=== PATIENT | female | born 1955 | race Caucasian/White ===

== ENCOUNTER 2018-08-22 12:52 | Day surgery (SDC) | payer OTHER ==
[2018-08-19 12:51] VITALS: BMI 29.2
[~2018-08-22 12:52] MED LIST: LACTATED RINGERS 1,000 ML IV SCH
[2018-08-22] MEDS ORDERED: LIDOCAINE 1% 20 ML VIAL (10MG/ML) FOR IV START INTRADERMA ONE (13:00)
[2018-08-22 13:13] VITALS: RESP 16; TEMP 97.1
[2018-08-22] MEDS ORDERED: PROPOFOL 10 MG/ML 20 ML VIAL IV ONE (14:48)
[2018-08-22] MEDS ORDERED: MIDAZOLAM 2 MG/2 ML VIAL ONE (14:48)
[2018-08-22] MEDS ORDERED: LIDOCAINE 1% INJ 10MG/ML (20 ML MDV) ONE (14:48)
[2018-08-22] MEDS ORDERED: fentaNYL (PF) 50 MCG/ML 2 ML AMP ONE (14:48)
[2018-08-22 15:39] VITALS: PULSE 58
--- NOTE | 2018-08-22 15:55 | P.PCN ---
Date of Procedure: 08/22/18 Procedure(s) Performed: Procedures: 1. Esophagogastroscopy and biopsy. 2. Colonoscopy and biopsy. Preoperative diagnosis: Chronic reflux symptoms and intermittent diarrhea of recent onset. Postoperative diagnosis: 1. 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 2. Multiple biopsies obtained from the antrum and esophagus. 3. Significant left-sided diverticulosis with no evidence of acute diverticulitis or strictures or colitis. 4. Biopsies obtained from the right colon to rule out microscopic colitis. Preparation: HalfLytely prep. Sedation: Was provided by anesthesia. Brief clinical history: The patient is a 63-year-old female who is scheduled for this evaluation for the above reasons. She has no dysphagia or other alarm symptoms. She has been having intermittent diarrhea for the last 3 or 4 months with occasional bleeding attributed to the frequency of her diarrhea. The patient had a colonoscopy several years back. No recent upper endoscopy either. Procedure: With the patient on her left lateral decubitus position and after informed consent and adequate sedation, I passed the Olympus-GIF H190 video upper endoscope through the cricopharyngeus down the esophagus. GE junction was around 40 cm from the incisors and there was no definite hiatal hernia. The esophagus did not show any evidence of esophagitis or complicated reflux disease. The endoscope was then passed into the stomach which was insufflated with air and inspected in detail including the retroflex view in the cardia. There was mottling and erythema in the antrum and there was deformity in the antrum and the pyloric channel had some degree of stenosis that would not allow the endoscope to go through. Since the stenosis was not high-grade no attempt was made to dilate the pyloric channel at this time. I obtained multiple biopsies from the antrum in addition to biopsies from the esophagus before the endoscope was withdrawn then I proceeded with the colonoscopy. Perianal area did not show any fissures or fistulas. There were no masses felt on digital rectal examination. The Olympus CFQ 160L video colonoscope was then inserted in the rectum in the usual fashion and advanced all the way to the right colon and cecum. There was significant diverticular disease on the left side but there was no evidence of acute diverticulitis or strictures. The mucosa appeared healthy and there was no evidence of infection or inflammation to account for her symptoms. No polyps or tumors were seen. I obtained biopsies from the right colon before the endoscope was withdrawn. The patient tolerated the procedure well. Plan: The patient was reassured. Will await biopsy results. Discussed dietary measures. Further plans will be made based on her course and biopsy results. Certainly, consideration should be given for dilation of the pyloric channel at any time in the future if she should have symptoms to suggest partial gastric outlet obstruction. She will follow-up with you as planned and I will be happy to see in follow-up as needed.
[2018-08-22 16:00] VITALS: BP 127/70
== END 2018-08-22 16:28 | disposition home or self-care (01) ==
LOC: ORWHC2ENDO 12:52
DX: K21.0 Gastro-esophageal reflux disease with esophagitis (principal); K29.50 Unspecified chronic gastritis without bleeding; K31.1 Adult hypertrophic pyloric stenosis; K57.30 Diverticulosis of large intestine without perforation or abscess without bleeding; J45.909 Unspecified asthma, uncomplicated; I10 Essential (primary) hypertension; E78.5 Hyperlipidemia, unspecified; F32.9 Major depressive disorder, single episode, unspecified; Z79.899 Other long term (current) drug therapy
CPT/HCPCS: 88305; 45380; 43239; J2250; J2001; J3010; J2704

== ENCOUNTER 2019-07-18 08:20 | Inpatient (IN) | payer OTHER ==
[2019-07-18] MEDS ORDERED: KETOROLAC 30 MG/ML 1 ML VIAL IVP STA (08:58)
[2019-07-18] MEDS ORDERED: SODIUM CHLORIDE 0.9% 1,000 ML IV STA (08:58)
[2019-07-18] MEDS ORDERED: ONDANSETRON 4 MG/2 ML VIAL IVP STA (08:58)
--- NOTE | 2019-07-18 09:02 | ED ---
General Adult HPI - General Chief complaint: Abdominal Pain Stated complaint: lower abdominal pain Time Seen by Provider: 07/18/19 08:45 Source: patient, RN notes reviewed Mode of arrival: ambulatory Limitations: no limitations - History of Present Illness Initial comments: 64-year-old female with a past medical history of asthma, GERD, hyperlipidemia, hypertension, diverticulitis presents for left lower quadrant pain 2 days. States it is a sharp pain in nature. Denies alleviating or aggravating factors. Does admit to associated nausea without vomiting. States she had diarrhea 3 days ago but that has since resolved. States that 2 days ago she had chills but did not check her temperature so is not sure if she had a fever. Denies any dysuria or hematuria.Patient has no other complaints at this time including shortness of breath, chest pain, vomiting, headache, or visual changes. - Related Data Home Medications Medication Instructions Recorded Confirmed [id number] 2 each PO Q6HR PRN 08/19/18 08/22/18 [Excedrin] Atorvastatin [Lipitor] 10 mg PO DAILY 08/19/18 08/22/18 Escitalopram [Lexapro] 20 mg PO DAILY 08/19/18 08/22/18 Lisinopril 40 mg PO DAILY 08/19/18 08/22/18 Meclizine [Antivert] 25 mg PO BID PRN 08/19/18 08/22/18 Montelukast Sodium [Singulair] 10 mg PO HS 08/19/18 08/22/18 Omeprazole 40 mg PO DAILY 08/19/18 08/22/18 Ondansetron [Zofran] 4 mg PO Q8HR PRN 08/19/18 08/22/18 amLODIPine [Norvasc] 10 mg PO DAILY 08/19/18 08/22/18 traZODone HCL 100 mg PO HS 08/19/18 08/22/18 Allergies Allergy/AdvReac Type Severity Reaction Status Date / Time No Known Allergies Allergy Verified 07/18/19 08:40 Review of Systems ROS Statement: Those systems with pertinent positive or pertinent negative responses have been documented in the HPI. ROS Other: All systems not noted in ROS Statement are negative. Past Medical History Past Medical History: Asthma, GERD/Reflux, Hyperlipidemia, Hypertension Additional Past Medical History / Comment(s): recent blood in stool, diarrhea, recent issues w/vertigo, kidney stones History of Any Multi-Drug Resistant Organisms: None Reported Past Surgical History: Section Past Anesthesia/Blood Transfusion Reactions: No Reported Reaction, Motion Sickness Past Psychological History: No Psychological Hx Reported Smoking Status: Former smoker Past Alcohol Use History: Occasional Past Drug Use History: None Reported - Past Family History Father Family Medical History: Cancer Additional Family Medical History / Comment(s): lung General Exam Limitations: no limitations General appearance: alert, in no apparent distress Head exam: Present: atraumatic, normocephalic, normal inspection Eye exam: Present: normal appearance, PERRL, EOMI. Absent: scleral icterus, conjunctival injection, periorbital swelling ENT exam: Present: normal exam, mucous membranes moist Neck exam: Present: normal inspection, full ROM. Absent: tenderness, meningismus, lymphadenopathy Respiratory exam: Present: normal lung sounds bilaterally. Absent: respiratory distress, wheezes, rales, rhonchi, stridor Cardiovascular Exam: Present: regular rate, normal rhythm, normal heart sounds. Absent: systolic murmur, diastolic murmur, rubs, gallop, clicks GI/Abdominal exam: Present: soft, tenderness (Tender in the left lower quadrant with mild guarding. When palpating the right lower quadrant patient has referred pain to the left lower quadrant. No rebound tenderness.), normal bowel sounds. Absent: distended, guarding, rebound, rigid Neurological exam: Present: alert Course Vital Signs 07/18/19 07/18/19 08:40 11:21 Temperature 97.8 F Pulse Rate 78 67 Respiratory 18 19 Rate Blood Pressure 120/78 119/66 O2 Sat by Pulse 95 98 Oximetry Medical Decision Making - Medical Decision Making 64-year-old female with a past medical history of asthma, GERD, hyperlipidemia, hypertension, diverticulitis, kidney stones presents for left lower quadrant pain 2 days. It is sharp pain in nature. Denies alleviating or aggravating factors. Does admit to associated nausea without vomiting. On exam patient does have left lower quadrant tenderness. States that right palpation causes left lower quadrant pain. No rebound tenderness. Vital signs are unremarkable. Patient is afebrile with a pulse rate of 78. CBC shows mild cytosis of 14.3. CMP is unremarkable. CT abdomen and pelvis with contrast shows generalized clonic reticulosis with evidence of acute diverticulitis at the junction of the descending and sigmoid colon. Recommended direct visualization after successful treatment to exclude neoplasm. There is also a 2.7 cm fluid locule that is likely representing left ovarian cyst rather than diverticulitis combination. Patient is also found to have a 7 mm distal ureter stone with moderate to severe hydronephrosis which is contributing to pain. 9 mm splenic artery aneurysm is also noted. Patient was given Toradol and morphine and is still in significant pain. Discussed inpatient versus outpatient admission with patient and at this time patient does not feel comfortable going home at this abdominal pain. Patient will be admitted for intractable abdominal pain and IV antibiotics. - Lab Data Result diagrams: 07/18/19 09:02 07/18/19 09:02 Lab Results 07/18/19 07/18/19 07/18/19 Range/Units 09:02 09:02 09:02 WBC 14.3 H (3.8-10.6) k/uL RBC 4.45 (3.80-5.40) m/uL Hgb 13.5 (11.4-16.0) gm/dL Hct 40.6 (34.0-46.0) % MCV 91.2 (80.0-100.0) fL MCH 30.3 (25.0-35.0) pg MCHC 33.2 (31.0-37.0) g/dL RDW 12.9 (11.5-15.5) % Plt Count 282 (150-450) k/uL Neutrophils % 82 % Lymphocytes % 10 % Monocytes % 4 % Eosinophils % 2 % Basophils % 1 % Neutrophils # 11.8 H (1.3-7.7) k/uL Lymphocytes # 1.4 (1.0-4.8) k/uL Monocytes # 0.5 (0-1.0) k/uL Eosinophils # 0.3 (0-0.7) k/uL Basophils # 0.1 (0-0.2) k/uL Sodium 140 (137-145) mmol/L Potassium 4.4 (3.5-5.1) mmol/L Chloride 109 H (98-107) mmol/L Carbon Dioxide 19 L (22-30) mmol/L Anion Gap 12 mmol/L BUN 15 (7-17) mg/dL Creatinine 1.08 H (0.52-1.04) mg/dL Est GFR (CKD-EPI)AfAm 63 (>60 ml/min/1.73 sqM) Est GFR (CKD-EPI)NonAf 55 (>60 ml/min/1.73 sqM) Glucose 139 H (74-99) mg/dL Plasma Lactic Acid Ray 1.1 (0.7-2.0) mmol/L Calcium 10.8 H (8.4-10.2) mg/dL Total Bilirubin 0.4 (0.2-1.3) mg/dL AST 28 (14-36) U/L ALT 25 (9-52) U/L Alkaline Phosphatase 103 (38-126) U/L Total Protein 7.6 (6.3-8.2) g/dL Albumin 4.4 (3.5-5.0) g/dL Amylase 83 (30-110) U/L Lipase 181 (23-300) U/L Urine Color Urine Appearance (Clear) Urine pH (5.0-8.0) Ur Specific [place] (1.001-1.035) Urine Protein (Negative) Urine Glucose (UA) (Negative) Urine Ketones (Negative) Urine Blood (Negative) Urine Nitrite (Negative) Urine Bilirubin (Negative) Urine Urobilinogen (<2.0) mg/dL Ur Leukocyte Esterase (Negative) 07/18/19 Range/Units 09:02 WBC (3.8-10.6) k/uL RBC (3.80-5.40) m/uL Hgb (11.4-16.0) gm/dL Hct (34.0-46.0) % MCV (80.0-100.0) fL MCH (25.0-35.0) pg MCHC (31.0-37.0) g/dL RDW (11.5-15.5) % Plt Count (150-450) k/uL Neutrophils % % Lymphocytes % % Monocytes % % Eosinophils % % Basophils % % Neutrophils # (1.3-7.7) k/uL Lymphocytes # (1.0-4.8) k/uL Monocytes # (0-1.0) k/uL Eosinophils # (0-0.7) k/uL Basophils # (0-0.2) k/uL Sodium (137-145) mmol/L Potassium (3.5-5.1) mmol/L Chloride (98-107) mmol/L Carbon Dioxide (22-30) mmol/L Anion Gap mmol/L BUN (7-17) mg/dL Creatinine (0.52-1.04) mg/dL Est GFR (CKD-EPI)AfAm (>60 ml/min/1.73 sqM) Est GFR (CKD-EPI)NonAf (>60 ml/min/1.73 sqM) Glucose (74-99) mg/dL Plasma Lactic Acid Ray (0.7-2.0) mmol/L Calcium (8.4-10.2) mg/dL Total Bilirubin (0.2-1.3) mg/dL AST (14-36) U/L ALT (9-52) U/L Alkaline Phosphatase (38-126) U/L Total Protein (6.3-8.2) g/dL Albumin (3.5-5.0) g/dL Amylase (30-110) U/L Lipase (23-300) U/L Urine Color Light Yellow Urine Appearance Clear (Clear) Urine pH 5.0 (5.0-8.0) Ur Specific [place] 1.009 (1.001-1.035) Urine Protein Negative (Negative) Urine Glucose (UA) Negative (Negative) Urine Ketones Negative (Negative) Urine Blood Negative (Negative) Urine Nitrite Negative (Negative) Urine Bilirubin Negative (Negative) Urine Urobilinogen <2.0 (<2.0) mg/dL Ur Leukocyte Esterase Negative (Negative) Disposition Clinical Impression: Diverticulitis, Ureterolithiasis Disposition: ADMITTED IP TO THIS [facility] Condition: Fair Is patient prescribed a controlled substance at d/c from ED?: No Referrals: Larissa Sanchez MD [Primary Care Provider] - 1-2 days Time of Disposition: 11:57
[2019-07-18 09:28] LABS: Basophils # (A) 0.1 k/uL (0-0.2); Basophils % (A) 1 %; Eosinophils # (A) 0.3 k/uL (0-0.7); Eosinophils % (A) 2 %; HCT 40.6 % (34.0-46.0); HGB 13.5 gm/dL (11.4-16.0); Lymphocytes # (A) 1.4 k/uL (1.0-4.8); Lymphocytes % (A) 10 %; MCH 30.3 pg (25.0-35.0); MCHC 33.2 g/dL (31.0-37.0); MCV 91.2 fL (80.0-100.0); Mean Platelet Volume 6.9; Monocytes # (A) 0.5 k/uL (0-1.0); Monocytes % (A) 4 %; Neutrophils # (A) 11.8 k/uL (1.3-7.7); Neutrophils % (A) 82 %; Platelet Count 282 k/uL (150-450); RBC 4.45 m/uL (3.80-5.40); RDW 12.9 % (11.5-15.5); WBC 14.3 k/uL (3.8-10.6)
[2019-07-18 09:36] LABS: Appearance,Urine Clear (Clear); Bilirubin,Urine Negative (Negative); Blood,Urine Negative (Negative); Color,Urine Light Yellow; Glucose,Urine (UA) Negative (Negative); Ketones,Urine Negative (Negative); Leukocyte Esterase,Urine Negative (Negative); Nitrite,Urine Negative (Negative); Protein,Urine Negative (Negative); Specific Gravity,Urine 1.009 (1.001-1.035); Urobilinogen,Urine <2.0 mg/dL (<2.0)
[2019-07-18 09:49] LABS: Albumin 4.4 g/dL (3.5-5.0); Calcium 10.8 mg/dL (8.4-10.2); Potassium 4.4 mmol/L (3.5-5.1); Total Bilirubin 0.4 mg/dL (0.2-1.3); Total Protein 7.6 g/dL (6.3-8.2)
--- NOTE | 2019-07-18 10:21 | CT ---
EXAMINATION TYPE: CT abdomen pelvis w con DATE OF EXAM: 07/18/2019 COMPARISON: NONE HISTORY: 64-year-old female with left lower quadrant pain, history of diverticulitis TECHNIQUE: Contiguous axial scanning of the abdomen and pelvis following administration of 100 ml Iso mohinder 300 IV contrast. Delayed images through the kidneys and coronal/sagittal reconstructions perform ed. CT DLP: 970.5 mGycm Automated exposure control for dose reduction was used. FINDINGS: Heart normal size without pericardial effusion. Strandy atelectasis or scarring. No focal liver lesion or biliary ductal dilatation. Portal venous system is patent. Gallbladder, adrenal glands, right kidney, spleen, and pancreas appear within normal limits. Incidental splenic artery aneurysm measuring 9 mm. No dilated small bowel, free fluid, or free air. Mild stool burden. Generalized colonic diverticulosis, greatest in the sigmoid colon. There is moderate wall thickening surrounding pericolonic fat stranding and edema along the junction of the descending and sigmoid colon. An ovoid fluid locule just inferior to the proximal sigmoid uche ures 2.7 cm suspected to be of left ovarian origin. Moderate to severe left-sided hydronephrosis and hydroureter with a 7 mm calculus located within the distal left ureter. No mesenteric or retroperitoneal lymphadenopathy. Bladder is urine distended. Uterus anteverted. Pelvic phleboliths. Right ovary is visualized measurin g 2.7 cm suspected cystic lesion of left ovary. Bones: Facet arthropathy throughout the lumbar spine with trace grade 1 anterolisthesis at L3-L4. IMPRESSION: 1. GENERALIZED COLONIC DIVERTICULOSIS WITH A EVIDENCE OF ACUTE DIVERTICULITIS AT THE JUNCTION OF THE DESCENDING AND SIGMOID COLON. MODERATE SURROUNDING INFLAMMATION. DIRECT VISUALIZATION AFTER SUCCESSFU L TREATMENT TO EXCLUDE UNDERLYING NEOPLASM. 2. A 2.7 CM FLUID LOCULE JUST INFERIOR TO THE PROXIMAL SIGMOID SUSPECTED REPRESENTING LEFT OVARIAN CY ST RATHER THAN A COMPLICATION OF THE PATIENT'S ACUTE DIVERTICULITIS. FOLLOW-UP RECOMMENDED THIS IS ABNORMAL IN A POSTMENOPAUSAL FEMALE. 3. A 7 MM CALCULUS DISTAL LEFT URETER WITH MODERATE TO SEVERE HYDRONEPHROSIS. 4. INCIDENTAL 9 MM SPLENIC ARTERY ANEURYSM.
[2019-07-18] MEDS ORDERED: MORPHINE SULFATE 4 MG/ML SYRINGE IVP STA (11:10)
[2019-07-18] MEDS ORDERED: PIPERACILLIN-TAZOBACTAM 3.375 GM in SODIUM CHLORIDE 0.9% 100 ML IVPB STA (11:52)
[2019-07-18] MEDS ORDERED: NALOXONE 0.4 MG/ML 1 ML VIAL IV PRN (11:57)
[2019-07-18] MEDS ORDERED: ONDANSETRON 4 MG/2 ML VIAL IVP PRN (11:57)
[2019-07-18] MEDS ORDERED: HYDROmorphone 0.5 MG/0.5 ML SYRINGE IVP STA (14:16)
[2019-07-18] MEDS: SODIUM CHLORIDE 0.9% 1,000 ML IV SCH (14:26)
[2019-07-18] MEDS: MORPHINE SULFATE 4 MG/ML SYRINGE IV PRN ×2 (17:14→21:23)
--- NOTE | 2019-07-18 19:22 | P.GSCN ---
History of Present Illness Consult date: 07/18/19 History of present illness: The patient is a 64-year-old female who came to the hospital 48 hour history of left lower quadrant pain. She was evaluated emergency room and found to have diverticulosis as well as probable diverticulitis of the left sigmoid colon. She also found to have significant left hydroureteronephrosis due to 6 mm distal ureteral stone. The patient had an elevated white count of 14,000. She did have some diarrhea some 3 days ago. She does admit to symptoms of the stone approximately 3 weeks ago. She had a stone that passed spontaneously several years ago. She denies blood in the urine. There's been no fever. There's been no nausea or vomiting. Review of Systems All systems: negative - Constitutional Denies fever, Denies weight loss - EENT Eyes: denies blurred vision Ears, nose, mouth and throat: Denies dysphagia - Cardiovascular Denies chest pain, Denies shortness of breath - Respiratory Denies cough, Denies 7 - Gastrointestinal Reports as per HPI, Reports abdominal pain, Reports diarrhea - Genitourinary Genitourinary: Reports as per HPI, Denies dysuria, Denies hematuria - Integumentary Denies rash, Denies unusual bruising - Neurological Denies headaches, Denies syncope - Hematologic/Lymphatic Denies easy bleeding, Denies easy bruising Past Medical History Past Medical History: Asthma, GERD/Reflux, Hyperlipidemia, Hypertension Additional Past Medical History / Comment(s): blood in stool past, diarrhea,vertigo, kidney stones History of Any Multi-Drug Resistant Organisms: None Reported Past Surgical History: Section Past Anesthesia/Blood Transfusion Reactions: No Reported Reaction, Motion Sickness Past Psychological History: No Psychological Hx Reported Smoking Status: Former smoker Past Alcohol Use History: Occasional Additional Past Alcohol Use History / Comment(s): quit smoking 40 yrs. ago, smoked <ppd for 10 yrs Past Drug Use History: None Reported - Past Family History Father Family Medical History: Cancer Additional Family Medical History / Comment(s): lung, aortic aneursym Mother Family Medical History: Dementia Medications and Allergies Home Medications Medication Instructions Recorded Confirmed Type Atorvastatin [Lipitor] 10 mg PO DAILY 08/19/18 07/18/19 History Escitalopram [Lexapro] 20 mg PO HS 08/19/18 07/18/19 History Lisinopril 20 mg PO DAILY 08/19/18 07/18/19 History Montelukast Sodium [Singulair] 10 mg PO DAILY 08/19/18 07/18/19 History Omeprazole 40 mg PO DAILY 08/19/18 07/18/19 History amLODIPine [Norvasc] 10 mg PO DAILY 08/19/18 07/18/19 History traZODone HCL 200 mg PO HS 08/19/18 07/18/19 History Allergies Allergy/AdvReac Type Severity Reaction Status Date / Time No Known Allergies Allergy Verified 07/18/19 12:05 Surgical - Exam Vital Signs Temp Pulse Resp BP Pulse Ox 97.8 F 78 18 120/78 95 07/18/19 08:40 07/18/19 08:40 07/18/19 08:40 07/18/19 08:40 07/18/19 08:40 - General well developed, well nourished, no distress - ENT no hearing loss - Neck no masses - Respiratory normal expansion, normal respiratory effort - Cardiovascular Rhythm: regular - Abdomen Abdomen: soft, tender - Neurologic normal coordination, normal sensation - Musculoskeletal normal posture - Psychiatric oriented to time, oriented to person, speech is normal, memory intact Results - Labs 07/18/19 09:02 07/18/19 09:02 Abnormal Lab Results - Last 24 Hours (Table) 07/18/19 07/18/19 Range/Units 09:02 09:02 WBC 14.3 H (3.8-10.6) k/uL Neutrophils # 11.8 H (1.3-7.7) k/uL Chloride 109 H (98-107) mmol/L Carbon Dioxide 19 L (22-30) mmol/L Creatinine 1.08 H (0.52-1.04) mg/dL Glucose 139 H (74-99) mg/dL Calcium 10.8 H (8.4-10.2) mg/dL Diabetes panel 07/18/19 Range/Units 09:02 Sodium 140 (137-145) mmol/L Potassium 4.4 (3.5-5.1) mmol/L Chloride 109 H (98-107) mmol/L Carbon Dioxide 19 L (22-30) mmol/L BUN 15 (7-17) mg/dL Creatinine 1.08 H (0.52-1.04) mg/dL Glucose 139 H (74-99) mg/dL Calcium 10.8 H (8.4-10.2) mg/dL AST 28 (14-36) U/L ALT 25 (9-52) U/L Alkaline Phosphatase 103 (38-126) U/L Total Protein 7.6 (6.3-8.2) g/dL Albumin 4.4 (3.5-5.0) g/dL Calcium panel 07/18/19 Range/Units 09:02 Calcium 10.8 H (8.4-10.2) mg/dL Albumin 4.4 (3.5-5.0) g/dL Pituitary panel 07/18/19 Range/Units 09:02 Sodium 140 (137-145) mmol/L Potassium 4.4 (3.5-5.1) mmol/L Chloride 109 H (98-107) mmol/L Carbon Dioxide 19 L (22-30) mmol/L BUN 15 (7-17) mg/dL Creatinine 1.08 H (0.52-1.04) mg/dL Glucose 139 H (74-99) mg/dL Calcium 10.8 H (8.4-10.2) mg/dL Adrenal panel 07/18/19 Range/Units 09:02 Sodium 140 (137-145) mmol/L Potassium 4.4 (3.5-5.1) mmol/L Chloride 109 H (98-107) mmol/L Carbon Dioxide 19 L (22-30) mmol/L BUN 15 (7-17) mg/dL Creatinine 1.08 H (0.52-1.04) mg/dL Glucose 139 H (74-99) mg/dL Calcium 10.8 H (8.4-10.2) mg/dL Total Bilirubin 0.4 (0.2-1.3) mg/dL AST 28 (14-36) U/L ALT 25 (9-52) U/L Alkaline Phosphatase 103 (38-126) U/L Total Protein 7.6 (6.3-8.2) g/dL Albumin 4.4 (3.5-5.0) g/dL - Imaging CT scan - abdomen: report reviewed, image reviewed CT scan - pelvis: report reviewed, image reviewed Assessment and Plan Assessment: Impression: Left ureteral calculus with hydroureteronephrosis. This appears to be somewhat chronic based on the appearance of the hydroureteronephrosis. I suspect she has been passing this for several weeks. Whether the acute pain in the last 48 hours is due to diverticular disease of the colon or the ureter stone is indeterminate. She apparently has diverticulitis based on the computed tomography scan. She does have diverticulosis. I'll review the computed tomography scan with the radiologist. Pending on the apparent severity of this as to when I would want to do a stone manipulation which I think she needs based on the chronicity and the appearance of the ureter seen on the computed tomography scan. Time with Patient: Greater than 30
--- NOTE | 2019-07-18 20:03 | HP ---
HISTORY AND PHYSICAL CHIEF COMPLAINT: [age] female with past medical history of asthma, GERD, dyslipidemia, hypertension, diverticulitis, left lower quadrant abdominal pain for 2 days, sharp pain in nature, alleviated with movement, some nausea without vomiting, some diarrhea, resolved 3 days ago. She has had fever and chills. CT scan abdomen and pelvis is reviewed. Possible cyst, left lower quadrant, diverticulitis, acute, hydronephrosis, severe, with ureteral stone blocking the ureter tube. Most of her pain is relieved by the pain medicine; left lower quadrant abdominal pain. HOME MEDICATIONS: Home medications include: 1. Excedrin. 2. Lipitor. 3. Lexapro. 4. Lisinopril. 5. Antivert. 6. Singulair. 7. Zofran. 8. Norvasc. 9. Trazodone. 10.Omeprazole. ALLERGIES: NEGATIVE. REVIEW OF SYSTEMS: Fourteen-point review of systems negative except for as mentioned in HPI. PAST MEDICAL HISTORY: 1. Asthma. 2. GERD. 3. Dyslipidemia. 4. Hypertension. 5. Recent blood in stool. 6. History of vertigo. 7. Kidney stones. 8. C-sections. 9. Former smoker. FAMILY HISTORY: Father with cancer of the lung. PHYSICAL EXAMINATION: VITAL SIGNS: Vital signs stable. Afebrile. Temperature 97.8, pulse 67 to 78, respiratory 16 to 19, blood pressure 120s over 60s to 70s, oxygen 95% to 98% on room air. HEENT: Normocephalic, atraumatic. Pupils equal, round, reactive to light and accommodation. RESPIRATORY: Clear. CARDIAC: Regular rate and rhythm. ABDOMEN: Tenderness to palpation in left lower quadrant with some guarding. No rebound tenderness. Normal bowel sounds. NEUROLOGIC: Alert and oriented x3. Negative CVA tenderness. ASSESSMENT: 1. Left lower quadrant abdominal pain, acute in nature. Suspect acute diverticulitis, possible abscess versus cyst on ovary. UA is negative. 2. Ureteral stone, ureteral stenosis with mild to severe hydronephrosis; unclear if this is acute, as she has a normal UA. Clear liquid diet. N.p.o., IV fluids, IV antibiotics. Surgical and urology consults. Home medicines will be continued. Pelvic ultrasound will be ordered for tonight. Toradol and morphine for pain. Please see further orders. Await further consults. 1. She has acute tubular necrosis. 2. Acute renal insufficiency. 3. Leukocytosis secondary to diverticulitis. Please see further orders. MMODL / IJN: [id number] /
[2019-07-18] MEDS: PIPERACILLIN-TAZOBACTAM 3.375 GM in SODIUM CHLORIDE 0.9% 100 ML IVPB SCH (20:32)
[2019-07-18] MEDS: MONTELUKAST 10 MG TAB PO SCH (20:37)
[2019-07-18] MEDS: traZODone HCL 100 MG TAB PO SCH (21:24)
[2019-07-18] MEDS: ESCITALOPRAM 20 MG TAB PO SCH (21:24)
[2019-07-19] MEDS: SODIUM CHLORIDE 0.9% 1,000 ML IV SCH ×3 (00:16→16:40)
[2019-07-19 00:26] LABS: Carcinoembryonic Antigen 5.2 ng/mL (0.0-4.9)
[2019-07-19 01:56] LABS: Cancer Antigen 19-9 <1.2 U/mL (0.0-34.9)
[2019-07-19] MEDS: MORPHINE SULFATE 4 MG/ML SYRINGE IV PRN ×6 (02:01→21:27)
[2019-07-19 03:17] LABS: Appearance,Urine Clear (Clear); Bilirubin,Urine Negative (Negative); Blood,Urine Negative (Negative); Color,Urine Light Yellow; Glucose,Urine (UA) Negative (Negative); Ketones,Urine Negative (Negative); Leukocyte Esterase,Urine Negative (Negative); Nitrite,Urine Negative (Negative); Protein,Urine Negative (Negative); Specific Gravity,Urine 1.026 (1.001-1.035); Urobilinogen,Urine <2.0 mg/dL (<2.0)
[2019-07-19] MEDS: PIPERACILLIN-TAZOBACTAM 3.375 GM in SODIUM CHLORIDE 0.9% 100 ML IVPB SCH ×3 (05:41→21:14)
--- NOTE | 2019-07-19 08:58 | US ---
EXAMINATION TYPE: US pelvic complete DATE OF EXAM: 07/19/2019 COMPARISON: NONE CLINICAL HISTORY: kidney stones / blockages related to CT . Pain f/u to ct scan. TECHNIQUE: Transabdominal (TA). Transabdominal sonographic images of the pelvis were acquired. Tra nsvaginal sonographic images were medically necessary to better assess the following anatomy: EXAM MEASUREMENTS: Uterus: 9.9 x 3.0 x 3.9 cm Endometrial Stripe: .6 cm Left Ovary: 3.0 x 2.1 x 2.9 cm 1. Uterus: Anteverted wnl 2. Endometrium: wnl 3. Right Ovary: Obscured by overlying bowel gas 4. Left Ovary: Septated cystic area 2.8 x 1.8 x 1.8 cm. 5. Bilateral Adnexa: wnl 6. Posterior cul-de-sac: wnl IMPRESSION: 1. There is a 2.8 x 1.8 x 8 cm cystic septated mass within the left ovary. This should be correlated clinically. In a postmenopausal female Differential diagnosis would include benign as well as maligna nt cystic neoplasms of the ovary.
[2019-07-19] MEDS: LISINOPRIL 20 MG TAB PO SCH (09:09)
[2019-07-19] MEDS: PANTOPRAZOLE 40 MG TABLET PO SCH (09:09)
[2019-07-19] MEDS: amLODIPine 10 MG TAB PO SCH (09:09)
[2019-07-19] MEDS: ATORVASTATIN 10 MG TAB PO SCH (09:09)
[2019-07-19 11:44] LABS: Basophils # (A) 0.1 k/uL (0-0.2); Basophils % (A) 1 %; Eosinophils # (A) 0.3 k/uL (0-0.7); Eosinophils % (A) 4 %; HCT 34.4 % (34.0-46.0); HGB 11.2 gm/dL (11.4-16.0); Lymphocytes # (A) 2.2 k/uL (1.0-4.8); Lymphocytes % (A) 30 %; MCH 30.5 pg (25.0-35.0); MCHC 32.7 g/dL (31.0-37.0); MCV 93.3 fL (80.0-100.0); Mean Platelet Volume 6.9; Monocytes # (A) 0.4 k/uL (0-1.0); Monocytes % (A) 5 %; Neutrophils # (A) 4.2 k/uL (1.3-7.7); Neutrophils % (A) 58 %; Platelet Count 253 k/uL (150-450); RBC 3.69 m/uL (3.80-5.40); RDW 13.1 % (11.5-15.5); WBC 7.3 k/uL (3.8-10.6)
[2019-07-19 11:47] LABS: Albumin 3.5 g/dL (3.5-5.0); Calcium 9.7 mg/dL (8.4-10.2); Potassium 4.5 mmol/L (3.5-5.1); Total Bilirubin 0.2 mg/dL (0.2-1.3); Total Protein 6.1 g/dL (6.3-8.2)
--- NOTE | 2019-07-19 12:25 | P.GSCN ---
History of Present Illness Consult date: 07/19/19 Reason for Consult: abnormal CT scan Requesting physician: Nina Flores History of present illness: CHIEF COMPLAINT: Abdominal pain HISTORY OF PRESENT ILLNESS: 64 year old female who presented to the hospital with a chief complaint of abdominal pain. Patient reports she began having left lower quadrant abdominal pain that began on Wednesday. She reports occasional nausea. Denies emesis. Reports diarrhea a few days prior to abdominal pain beginning. She currently denies diarrhea. She is passing flatus. Denies fever or chills. Patient reports last episode of diverticulitis was approximately 10 years ago. Patient underwent EGD and colonoscopy with Dr. Richardson in July 2018 revealing gastritis with antral deformity and some degree of stenosis of the pyloric channel, significant left-sided diverticulosis with no evidence of acute diverticulitis, strictures, or colitis. PAST MEDICAL HISTORY: See list. PAST SURGICAL HISTORY: See list. SOCIAL HISTORY: No illicit drug use. REVIEW OF SYSTEMS: CONSTITUTIONAL: Denies fever or chills. HEENT: Denies blurred vision, vision changes, or eye pain. Denies hemoptysis CARDIOVASCULAR: Denies chest pain or pressure. RESPIRATORY: No shortness of breath. GASTROINTESTINAL: Refer to HPI for pertinent findings HEMATOLOGIC: Denies bleeding disorders. GENITOURINARY: Denies any blood in urine. SKIN: Denies pruitis. Denies rash. PHYSICAL EXAM: VITAL SIGNS: Reviewed. GENERAL: Well-developed in no acute distress. HEENT: No sclera icterus. Extraocular movements grossly intact. Moist buccal mucosa. Head is atraumatic, normocephalic. ABDOMEN: Soft. Nondistended. Tenderness with palpation to left lower quadrant. NEUROLOGIC: Alert and oriented. Cranial nerves II through XII grossly intact. LABORATORY DATA: WBC on admission 14.3. Repeat 7.3. Lactic acid 1.1. IMAGING: CT abdomen and pelvis: Generalized colonic diverticulosis with evidence of acute diverticulitis at the junction of the descending and sigmoid colon. Moderate s urrounding inflammation. 2.7 cm fluid loculated just inferior to the proximal sigmoid suspected representing left ovarian cyst rather than a complications the patient's acute diverticulitis. 7 mm calculus distal left ureter with moderate to severe hydronephrosis. Incidental 9 mm splenic artery aneurysm ASSESSMENT: 1. Abdominal pain 2. Acute diverticulitis PLAN: 1. May begin clear liquid diet 2. Continue antibiotics. Monitor WBC 3. No surgical intervention recommended at this time Nurse practitioner note has been reviewed by physician. Signing provider agrees with the documented findings, assessment, and plan of care. Past Medical History Past Medical History: Asthma, GERD/Reflux, Hyperlipidemia, Hypertension Additional Past Medical History / Comment(s): blood in stool past, diarrhea,vertigo, kidney stones History of Any Multi-Drug Resistant Organisms: None Reported Past Surgical History: Section Past Anesthesia/Blood Transfusion Reactions: No Reported Reaction, Motion Sickness Past Psychological History: No Psychological Hx Reported Smoking Status: Former smoker Past Alcohol Use History: Occasional Additional Past Alcohol Use History / Comment(s): quit smoking 40 yrs. ago, smoked <ppd for 10 yrs Past Drug Use History: None Reported - Past Family History Father Family Medical History: Cancer Additional Family Medical History / Comment(s): lung, aortic aneursym Mother Family Medical History: Dementia Medications and Allergies Home Medications Medication Instructions Recorded Confirmed Type Atorvastatin [Lipitor] 10 mg PO DAILY 08/19/18 07/18/19 History Escitalopram [Lexapro] 20 mg PO HS 08/19/18 07/18/19 History Lisinopril 20 mg PO DAILY 08/19/18 07/18/19 History Montelukast Sodium [Singulair] 10 mg PO DAILY 08/19/18 07/18/19 History Omeprazole 40 mg PO DAILY 08/19/18 07/18/19 History amLODIPine [Norvasc] 10 mg PO DAILY 08/19/18 07/18/19 History traZODone HCL 200 mg PO HS 08/19/18 07/18/19 History Allergies Allergy/AdvReac Type Severity Reaction Status Date / Time No Known Allergies Allergy Verified 07/18/19 12:05 Surgical - Exam Vital Signs Temp Pulse Resp BP Pulse Ox 97.8 F 78 18 120/78 95 07/18/19 08:40 07/18/19 08:40 07/18/19 08:40 07/18/19 08:40 07/18/19 08:40 Results - Labs 07/19/19 11:08 07/19/19 11:08 Abnormal Lab Results - Last 24 Hours (Table) 07/18/19 07/19/19 07/19/19 Range/Units 09:02 11:08 11:08 RBC 3.69 L (3.80-5.40) m/uL Hgb 11.2 L (11.4-16.0) gm/dL Chloride 111 H (98-107) mmol/L Creatinine 1.20 H (0.52-1.04) mg/dL Total Protein 6.1 L (6.3-8.2) g/dL Carcinoembryonic Ag 5.2 H (0.0-4.9) ng/mL Diabetes panel 07/19/19 Range/Units 11:08 Sodium 142 (137-145) mmol/L Potassium 4.5 (3.5-5.1) mmol/L Chloride 111 H (98-107) mmol/L Carbon Dioxide 23 (22-30) mmol/L BUN 11 (7-17) mg/dL Creatinine 1.20 H (0.52-1.04) mg/dL Glucose 91 (74-99) mg/dL Calcium 9.7 (8.4-10.2) mg/dL AST 18 (14-36) U/L ALT 20 (9-52) U/L Alkaline Phosphatase 79 (38-126) U/L Total Protein 6.1 L (6.3-8.2) g/dL Albumin 3.5 (3.5-5.0) g/dL Calcium panel 07/19/19 Range/Units 11:08 Calcium 9.7 (8.4-10.2) mg/dL Albumin 3.5 (3.5-5.0) g/dL Pituitary panel 07/19/19 Range/Units 11:08 Sodium 142 (137-145) mmol/L Potassium 4.5 (3.5-5.1) mmol/L Chloride 111 H (98-107) mmol/L Carbon Dioxide 23 (22-30) mmol/L BUN 11 (7-17) mg/dL Creatinine 1.20 H (0.52-1.04) mg/dL Glucose 91 (74-99) mg/dL Calcium 9.7 (8.4-10.2) mg/dL Adrenal panel 07/19/19 Range/Units 11:08 Sodium 142 (137-145) mmol/L Potassium 4.5 (3.5-5.1) mmol/L Chloride 111 H (98-107) mmol/L Carbon Dioxide 23 (22-30) mmol/L BUN 11 (7-17) mg/dL Creatinine 1.20 H (0.52-1.04) mg/dL Glucose 91 (74-99) mg/dL Calcium 9.7 (8.4-10.2) mg/dL Total Bilirubin 0.2 (0.2-1.3) mg/dL AST 18 (14-36) U/L ALT 20 (9-52) U/L Alkaline Phosphatase 79 (38-126) U/L Total Protein 6.1 L (6.3-8.2) g/dL Albumin 3.5 (3.5-5.0) g/dL
--- NOTE | 2019-07-19 13:15 | P.PN ---
Subjective Progress Note Date: 07/19/19 The patient is in the hospital 3 pelvic problems, a left ureteral obstructing stone, diverticulitis and an ovarian septated cyst. I reviewed the computed tomography scan with radiology today and it is felt that she does indeed have mild diverticulitis as well as a septated ovarian cystoscopy. Gen. surgery has been consult would for the diverticulitis. I did speak with the general surgeon and he would request that I have the patient treated with antibiotics for a few days before a new ureteral stone manipulation. The radiologist also recommended AUTOMATIC PAD MAKING MACHINE OPERATOR consultation for the septated ovarian cystoscopy. At this point time she is relatively comfortable so I'll plan on doing stone manipulation next week sometime. Objective - Vital Signs Vital signs: Vital Signs Temp 97.8 F 07/19/19 07:00 Pulse 58 L 07/19/19 07:00 Resp 16 07/19/19 07:00 BP 104/66 07/19/19 07:00 Pulse Ox 92 L 07/19/19 07:00 Intake & Output 07/18/19 07/19/19 07/19/19 18:59 06:59 18:59 Intake Total 0 900 Output Total 700 Balance 0 200 Weight 72.575 kg Intake: IV 900 Piperacillin-Tazobactam 3 100 .375 gm In Sodium Chloride 0.9% 100 ml @ 25 mls/hr IVPB Q8H [facility] Rx#: [id number] Sodium Chloride 0.9% 1, 800 000 ml @ 100 mls/hr IV . Q10H [facility] Rx#:[id number] Oral 0 Output: Urine 700 Other: Voiding Method Toilet Toilet Toilet # Voids 1 2 - Labs CBC & Chem 7: 07/19/19 11:08 07/19/19 11:08 Labs: Abnormal Lab Results - Last 24 Hours (Table) 07/18/19 07/19/19 07/19/19 Range/Units 09:02 11:08 11:08 RBC 3.69 L (3.80-5.40) m/uL Hgb 11.2 L (11.4-16.0) gm/dL Chloride 111 H (98-107) mmol/L Creatinine 1.20 H (0.52-1.04) mg/dL Total Protein 6.1 L (6.3-8.2) g/dL Carcinoembryonic Ag 5.2 H (0.0-4.9) ng/mL
--- NOTE | 2019-07-19 18:36 | P.OBCN ---
History of Present Illness Consult date: 07/19/19 Requesting physician: Urbano Alcaraz Reason for consult: pelvic pain Chief complaint: Left lower quadrant pain History of present illness: Patient is a 64-year-old female 4 para 2 who went through menopause at approximately age 56. She has a acute history of left lower quadrant pain. She relates that approximately Wednesday she began having left lower quadrant pain. Initially the pain was coming in waves and that she could not find a position of comfort. The pain was predominantly in the left lower quadrant but did radiate down into her groin on the left side. She was brought into the emergency room due to exacerbation of the pain and unable to tolerate any further. A CAT scan was performed showing 3 separate potential causes for her left lower quadrant pain there was left hydronephrosis with kidney stone, diverticulosis with questionable diverticulitis, and a 2.7 cm cyst with 1 septation. I did also order an ultrasound of the pelvis, an abdominal ultrasound was performed and shows a essentially simple looking cyst with smooth margins and 1 septation along the lower pole. Difficult to say if this is truly ovarian or could even potentially be paraovarian in nature. The symptoms have slowly improved with pain medicine and at this time there is no surgical intervention being planned and urology plans to do stone removal once antibiotics are done for diverticulitis prophylaxis. In speaking with her it does not seem likely that the source for her pain is a 2.7 cm cyst which would be relatively small. I did relate that I doubted that this was a new cyst and that it probably has been there for an extended time. I did order a CA-125 level and explained that there is an 80% chance that this is an epithelial tumor that it would be elevated. If it was elevated almost certainly we would transfer her to FARM OPERATIONS TECHNICAL DIRECTOR oncologist. That said see 125 nonspecific test and could be elevated theoretically an endometritis or any other inflammatory condition of the colon or liver. If it is normal however, while there still small chance there could be an ovarian cancer I explained that the normal treatment for something the size would be to repeat the ultrasound in 6-8 weeks and then again in 3-6 months and if there is no specific change to the cyst size, dimension or character she would most likely not need any other intervention. All questions were answered for her from the standpoint. I did do a bimanual exam and no masses palpated and there is no specific pelvic pain although she does have pain in her abdomen on exam. No rebound or specific guarding at this time however. Assessment left lower quadrant pain with left ureteral calculi and hydronephrosis, diverticulosis, and left ovarian cyst. Plan we will plan to see her on an outpatient basis in a couple of weeks when she is recovered and feeling better and will plan to schedule a repeat ultrasound at that visit assuming that the CA-125 level is normal. Past Medical History Past Medical History: Asthma, GERD/Reflux, Hyperlipidemia, Hypertension Additional Past Medical History / Comment(s): blood in stool past, diarrhea,vertigo, kidney stones History of Any Multi-Drug Resistant Organisms: None Reported Past Surgical History: Section Past Anesthesia/Blood Transfusion Reactions: No Reported Reaction, Motion Sickness Past Psychological History: No Psychological Hx Reported Smoking Status: Former smoker Past Alcohol Use History: Occasional Additional Past Alcohol Use History / Comment(s): quit smoking 40 yrs. ago, smoked <ppd for 10 yrs Past Drug Use History: None Reported - Past Family History Father Family Medical History: Cancer Additional Family Medical History / Comment(s): lung, aortic aneursym Mother Family Medical History: Dementia Medications and Allergies Home Medications Medication Instructions Recorded Confirmed Type Atorvastatin [Lipitor] 10 mg PO DAILY 08/19/18 07/18/19 History Escitalopram [Lexapro] 20 mg PO HS 08/19/18 07/18/19 History Montelukast Sodium [Singulair] 10 mg PO DAILY 08/19/18 07/18/19 History RX: Lisinopril 20 mg PO DAILY 08/19/18 07/18/19 History RX: Omeprazole 40 mg PO DAILY 08/19/18 07/18/19 History RX: traZODone HCL 200 mg PO HS 08/19/18 07/18/19 History amLODIPine [Norvasc] 10 mg PO DAILY 08/19/18 07/18/19 History Allergies Allergy/AdvReac Type Severity Reaction Status Date / Time No Known Allergies Allergy Verified 07/18/19 12:05 Exam Osteopathic Statement: *. No significant issues noted on an osteopathic struct ural exam other than those noted in the History and Physical/Consult. Vital Signs Temp Pulse Resp BP Pulse Ox 07/19/19 14:23 97.0 F L 54 L 16 118/73 92 L 07/19/19 07:00 97.8 F 58 L 16 104/66 92 L 07/19/19 00:00 57 L 07/18/19 20:52 97.2 F L 57 L 16 112/59 96 Intake and Output 07/19/19 07/19/19 07/19/19 06:59 14:59 22:59 Intake Total 0 900 Output Total 700 Balance 0 200 Intake: IV 900 Piperacillin-Tazobactam 3 100 .375 gm In Sodium Chloride 0.9% 100 ml @ 25 mls/hr IVPB Q8H [facility] Rx#: [id number] Sodium Chloride 0.9% 1, 800 000 ml @ 100 mls/hr IV . Q10H [facility] Rx#:[id number] Oral 0 Output: Urine 700 Other: Voiding Method Toilet # Voids 2 Results Result Diagrams: 07/19/19 11:08 07/19/19 11:08 Abnormal Lab Results - Last 24 Hours (Table) 07/18/19 07/19/19 07/19/19 Range/Units 09:02 11:08 11:08 RBC 3.69 L (3.80-5.40) m/uL Hgb 11.2 L (11.4-16.0) gm/dL Chloride 111 H (98-107) mmol/L Creatinine 1.20 H (0.52-1.04) mg/dL Total Protein 6.1 L (6.3-8.2) g/dL Carcinoembryonic Ag 5.2 H (0.0-4.9) ng/mL Microbiology - Last 24 Hours (Table) 07/18/19 12:54 Blood Culture - Preliminary Blood No Growth after 24 hours
[2019-07-19] MEDS: MONTELUKAST 10 MG TAB PO SCH (21:15)
[2019-07-19] MEDS: ESCITALOPRAM 20 MG TAB PO SCH (21:15)
[2019-07-19] MEDS: traZODone HCL 100 MG TAB PO SCH (21:16)
[2019-07-20] MEDS: PIPERACILLIN-TAZOBACTAM 3.375 GM in SODIUM CHLORIDE 0.9% 100 ML IVPB SCH ×3 (06:22→20:15)
[2019-07-20] MEDS: SODIUM CHLORIDE 0.9% 1,000 ML IV SCH ×2 (06:24→16:42)
--- NOTE | 2019-07-20 06:46 | P.PN ---
Subjective Progress Note Date: 07/20/19 The patient has been seen by both general surgery and GUM MACHINE FILLER. The gynecologic follow-up has been ordered by Dr. Kinney. Her CA-125 is normal. She's also been seen by general surgery. They'll treat her conservatively at this point in time. We'll therefore make plans to do a stone manipulation next week as an outpatient. Objective - Vital Signs Vital signs: Vital Signs Temp 98.1 F 07/19/19 21:20 Pulse 56 L 07/19/19 21:20 Resp 20 07/19/19 22:30 BP 107/66 07/19/19 21:20 Pulse Ox 94 L 07/19/19 22:30 Intake & Output 07/19/19 07/19/19 07/20/19 06:59 18:59 06:59 Intake Total 0 900 400 Output Total 700 Balance 0 200 400 Intake: IV 900 Piperacillin-Tazobactam 3 100 .375 gm In Sodium Chloride 0.9% 100 ml @ 25 mls/hr IVPB Q8H [facility] Rx#: [id number] Sodium Chloride 0.9% 1, 800 000 ml @ 100 mls/hr IV . Q10H [facility] Rx#:[id number] Oral 0 400 Output: Urine 700 Other: Voiding Method Toilet Toilet Toilet # Voids 2 1 - Labs CBC & Chem 7: 07/19/19 11:08 07/19/19 11:08 Labs: Abnormal Lab Results - Last 24 Hours (Table) 07/19/19 07/19/19 Range/Units 11:08 11:08 RBC 3.69 L (3.80-5.40) m/uL Hgb 11.2 L (11.4-16.0) gm/dL Chloride 111 H (98-107) mmol/L Creatinine 1.20 H (0.52-1.04) mg/dL Total Protein 6.1 L (6.3-8.2) g/dL Microbiology - Last 24 Hours (Table) 07/18/19 12:54 Blood Culture - Preliminary Blood No Growth after 24 hours
[2019-07-20] MEDS: MORPHINE SULFATE 4 MG/ML SYRINGE IV PRN ×2 (06:48→10:55)
[2019-07-20] MEDS: PANTOPRAZOLE 40 MG TABLET PO SCH (07:39)
[2019-07-20] MEDS: LISINOPRIL 20 MG TAB PO SCH (07:39)
[2019-07-20] MEDS: ATORVASTATIN 10 MG TAB PO SCH (07:39)
[2019-07-20] MEDS: amLODIPine 10 MG TAB PO SCH (07:39)
--- NOTE | 2019-07-20 09:50 | P.PN ---
Progress Note - Text Progress Note Date: 07/20/19 Patient seen and evaluated briefly this morning to discuss CA-125 results. They are normal. I requested that she follow up with me in approximately 2 weeks on an outpatient basis once her renal stone issue is resolved and all be happy to schedule a repeat ultrasound in approximately 2 months to verify stability of her ovarian/periovarian cyst. All other questions were answered for her and I did provide a card with instructions at this time.
[2019-07-20] MEDS ORDERED: ASPIRIN-ACET-CAFF 250-250-65MG 1 EACH TAB PO PRN (11:49)
--- NOTE | 2019-07-20 11:51 | XR ---
EXAMINATION TYPE: XR abdomen 2V DATE OF EXAM: 07/20/2019 11:45 AM CLINICAL HISTORY: Abdominal pain and bloating TECHNIQUE: Upright and supine images of the abdomen is obtained. COMPARISON: None. FINDINGS: No dilated loops of small and large bowel are seen. No pneumoperitoneum. Mottled stool is p resent throughout the nondilated colon with overall mild degree of colonic fecal retention. No suspic ious calcifications in the abdomen or pelvis. Multiple phleboliths are seen in the pelvis however. Mi ld degenerative changes of the spine and hips. IMPRESSION: Nonobstructive bowel gas pattern.
[2019-07-20] MEDS ORDERED: KETOROLAC 30 MG/ML 1 ML VIAL IVP STA (11:58)
[2019-07-20] MEDS: HYDROmorphone 0.5 MG/0.5 ML SYRINGE IVP PRN ×2 (12:18→20:15)
--- NOTE | 2019-07-20 13:12 | P.PN ---
Subjective Progress Note Date: 07/20/19 CHIEF COMPLAINT: Abdominal pain HISTORY OF PRESENT ILLNESS: Patient examined at the bedside. She reports abdominal bloating. Denies bowel movement. Tolerating clear liquid diet. Reports abdominal pain to left lower quadrant but states it is improved since yesterday. PHYSICAL EXAM: VITAL SIGNS: Reviewed. GENERAL: Well-developed in no acute distress. HEENT: No sclera icterus. Extraocular movements grossly intact. Moist buccal mucosa. Head is atraumatic, normocephalic. ABDOMEN: Soft. Nondistended. Tenderness with palpation to left lower quadrant. NEUROLOGIC: Alert and oriented. Cranial nerves II through XII grossly intact. ASSESSMENT: 1. Abdominal pain 2. Acute diverticulitis PLAN: 1. Abdominal xray 2. Full liquid diet 3. Continue antibiotics. Monitor WBC 4. No surgical intervention recommended at this time Nurse practitioner note has been reviewed by physician. Signing provider agrees with the documented findings, assessment, and plan of care. Objective - Vital Signs Vital signs: Vital Signs Temp 97.7 F 07/20/19 07:06 Pulse 58 L 07/20/19 07:06 Resp 18 07/20/19 07:06 BP 111/65 07/20/19 07:06 Pulse Ox 96 07/20/19 07:08 Intake & Output 07/19/19 07/20/19 07/20/19 18:59 06:59 18:59 Intake Total 900 750 Output Total 700 Balance 200 750 Intake: IV 900 Piperacillin-Tazobactam 3 100 .375 gm In Sodium Chloride 0.9% 100 ml @ 25 mls/hr IVPB Q8H [facility] Rx#: [id number] Sodium Chloride 0.9% 1, 800 000 ml @ 100 mls/hr IV . Q10H [facility] Rx#:[id number] Oral 750 Output: Urine 700 Other: Voiding Method Toilet Toilet Toilet # Voids 2 - Labs CBC & Chem 7: 07/19/19 11:08 07/19/19 11:08 Labs: Microbiology - Last 24 Hours (Table) 07/18/19 12:54 Blood Culture - Preliminary Blood No Growth after 24 hours
[2019-07-20 14:58] VITALS: BMI 29.2
[2019-07-20] MEDS: traZODone HCL 100 MG TAB PO SCH (20:16)
[2019-07-20] MEDS: MONTELUKAST 10 MG TAB PO SCH (20:16)
[2019-07-20] MEDS: ESCITALOPRAM 20 MG TAB PO SCH (20:16)
--- NOTE | 2019-07-20 21:03 | P.PN ---
Subjective Progress Note Date: 07/19/19 This is 64-year-old female admitted with multiple medical issues including left lower quadrant abdominal pain, left ureteral calculus with hydroureteronephrosis, diverticulitis. Reports intermittent nausea, no emesis, no diarrhea. CT of abdomen and pelvis reported colonic diverticulosis with evidence of acute diverticulitis at the descending and sigmoid colon, 2.7 cm loculated fluid inferior to proximal sigmoid representing left ovarian cyst, centimeter calculus distal left ureter with moderate to severe hydronephrosis, incidental 9 mm splenic artery aneurysm.Evaluated by urology, further review of CT with radiologist pending; possible stone manipulation being considered. Creatinine 1.2. Tumor marker AFP 4, CEA elevated at 5.2, CA-19 antigen less than 1.2, CA-125 antigen 3.7. Maintained on IV Zosyn. Afebrile.Denies chest pain, palpitations or shortness of breath. Evaluated by surgery with no surgical intervention recommended at this time. Objective - Vital Signs Vital signs: Vital Signs Temp 97.0 F L 07/19/19 14:23 Pulse 54 L 07/19/19 14:23 Resp 16 07/19/19 14:23 BP 118/73 07/19/19 14:23 Pulse Ox 92 L 07/19/19 14:23 Intake & Output 07/18/19 07/19/19 07/19/19 18:59 06:59 18:59 Intake Total 0 900 Output Total 700 Balance 0 200 Weight 72.575 kg Intake: IV 900 Piperacillin-Tazobactam 3 100 .375 gm In Sodium Chloride 0.9% 100 ml @ 25 mls/hr IVPB Q8H [facility] Rx#: [id number] Sodium Chloride 0.9% 1, 800 000 ml @ 100 mls/hr IV . Q10H [facility] Rx#:[id number] Oral 0 Output: Urine 700 Other: Voiding Method Toilet Toilet Toilet # Voids 1 2 - Exam PHYSICAL EXAM: VITAL SIGNS: As above GENERAL: Sitting up in bed, no acute distress HEENT: Conjunctivae normal. eyes normal. NECK: No JVD. No thyroid enlargement. No LNs CARDIOVASCULAR: S1, S2 regular.. No murmur RESPIRATION: Breath sounds diminished in the bases. No rhonchi or crackles. No bronchial breathing. ABDOMEN: Soft, mildly distended, left lower quadrant tenderness . No guarding. no masses palpable. .Bowel sounds heard. LEGS: No edema. no swelling PSYCHIATRY: Alert and oriented X3, mood and affect normal. NERVOUS SYSTEM: Cranial N 2-12 grossly normal. Moves all 4 limbs. Diffuse weakness No focal deficits. Strength and sensation grossly intact.. Skin: no lesions, no rash - Labs CBC & Chem 7: 07/19/19 11:08 07/19/19 11:08 Labs: Abnormal Lab Results - Last 24 Hours (Table) 07/18/19 07/19/19 07/19/19 Range/Units 09:02 11:08 11:08 RBC 3.69 L (3.80-5.40) m/uL Hgb 11.2 L (11.4-16.0) gm/dL Chloride 111 H (98-107) mmol/L Creatinine 1.20 H (0.52-1.04) mg/dL Total Protein 6.1 L (6.3-8.2) g/dL Carcinoembryonic Ag 5.2 H (0.0-4.9) ng/mL Microbiology - Last 24 Hours (Table) 07/18/19 12:54 Blood Culture - Preliminary Blood No Growth after 24 hours Assessment and Plan Assessment: -Left lower quadrant Abdominal pain, Acute diverticulitis -Left ureteral calculus with hydroureteronephrosis, urology follow -Leukocytosis secondary to the above, resolved -Acute renal failure secondary to ATN -Ovarian cyst,left -Chronic intermittent asthma, stable -History of nicotine dependence -Hypertension -Hyperlipidemia -Gastroesophageal reflux disease Plan: Continue on current medication regime ,monitoring and symptomatic treatment. Maintain IV antibiotics. Pain management. Diet advancement as per surgery. EQUIP TECH consulted. Pelvic ultrasound ordered. Close monitoring of renal function, WBC with repeat labs ordered for a.m. Follow closely with multiple consults. Prognosis guarded given multiple complex medical issues. The impression and plan of care has been dictated as directed. : I performed a history and examination of this patient, discussed the same with the dictator. I agree with the dictator's note ,documented as a scribe. Any additional findings or plans will be noted.
--- NOTE | 2019-07-20 21:11 | P.PN ---
Subjective Progress Note Date: 07/20/19 This is 64-year-old female admitted with multiple medical issues including left lower quadrant abdominal pain, left ureteral calculus with hydroureteronephrosis, diverticulitis. Reports intermittent nausea, no emesis, no diarrhea. CT of abdomen and pelvis reported colonic diverticulosis with evidence of acute diverticulitis at the descending and sigmoid colon, 2.7 cm loculated fluid inferior to proximal sigmoid representing left ovarian cyst, centimeter calculus distal left ureter with moderate to severe hydronephrosis, incidental 9 mm splenic artery aneurysm.Evaluated by urology, further review of CT with radiologist pending; possible stone manipulation being considered. Creatinine 1.2. Tumor marker AFP 4, CEA elevated at 5.2, CA-19 antigen less than 1.2, CA-125 antigen 3.7. Maintained on IV Zosyn. Afebrile.Denies chest pain, palpitations or shortness of breath. Evaluated by surgery with no surgical intervention recommended at this time. 07/20 reports improving left lower quadrant abdominal pain .pelvic ultrasound reporting 2 x 8 x 1 x 8 x 8 cm left ovary mass. Evaluated by a SIGNAL CONSTRUCTOR, recommendations noted including repeating ultrasound in 6-8 weeks. Stone manipulation planned for next week as per urology. Tolerating clear liquid diet with no nausea or vomiting. Complains of bloating sensation, denies flatus, denies bowel movement. Abdominal x-ray pending. Objective - Vital Signs Vital signs: Vital Signs Temp 98.1 F 07/20/19 13:30 Pulse 50 L 07/20/19 13:30 Resp 16 07/20/19 13:30 BP 93/59 07/20/19 13:30 Pulse Ox 95 07/20/19 13:30 Intake & Output 07/19/19 07/20/19 07/20/19 18:59 06:59 18:59 Intake Total 900 750 Output Total 700 3 Balance 200 750 -3 Weight 72.575 kg Intake: IV 900 Piperacillin-Tazobactam 3 100 .375 gm In Sodium Chloride 0.9% 100 ml @ 25 mls/hr IVPB Q8H LEYLA Rx#: [id number] Sodium Chloride 0.9% 1, 800 000 ml @ 100 mls/hr IV . Q10H LEYLA Rx#:[id number] Oral 750 Output: Urine 700 3 Other: Voiding Method Toilet Toilet Toilet # Voids 2 - Exam PHYSICAL EXAM: VITAL SIGNS: As above GENERAL: Sitting up in bed, no acute distress HEENT: Conjunctivae normal. eyes normal. Oral mucosa moist. NECK: No JVD. No thyroid enlargement. No LNs CARDIOVASCULAR: S1, S2 regular.. No murmur RESPIRATION: Breath sounds diminished in the bases. No rhonchi or crackles. No bronchial breathing. ABDOMEN: Soft, mildly distended, left lower quadrant tenderness . No guarding. no masses palpable. .Bowel sounds heard. LEGS: No edema. no swelling PSYCHIATRY: Alert and oriented X3, mood and affect normal. NERVOUS SYSTEM: Cranial N 2-12 grossly normal. Moves all 4 limbs. Diffuse weakness No focal deficits. Strength and sensation grossly intact.. Skin: no lesions, no rash - Labs CBC & Chem 7: 07/19/19 11:08 07/19/19 11:08 Labs: Microbiology - Last 24 Hours (Table) 07/18/19 12:54 Blood Culture - Preliminary Blood No Growth after 48 hours Assessment and Plan Assessment: -Left lower quadrant Abdominal pain, Acute diverticulitis -Left ureteral calculus with hydroureteronephrosis, urology follow -Leukocytosis secondary to the above, resolved -Acute renal failure secondary to ATN -Ovarian cyst, mass ,left, rule out malignancy, SIGNAL CONSTRUCTOR following -Chronic intermittent asthma, stable -History of nicotine dependence -Hypertension -Hyperlipidemia -Gastroesophageal reflux disease Plan: Continue on current medication regime ,monitoring and symptomatic treatment. Abdominal x-ray pending.Pain management. Continue on IV antibiotics. Close monitoring of renal function, WBC with repeat labs ordered for a.m. Follow closely with multiple consults. Prognosis guarded given multiple complex medical issues. The impression and plan of care has been dictated as directed. : I performed a history and examination of this patient, discussed the same with the dictator. I agree with the dictator's note ,documented as a scribe. Any additional findings or plans will be noted.
[2019-07-21] MEDS: HYDROmorphone 0.5 MG/0.5 ML SYRINGE IVP PRN (03:37)
[2019-07-21] MEDS: SODIUM CHLORIDE 0.9% 1,000 ML IV SCH (03:38)
[2019-07-21] MEDS: PIPERACILLIN-TAZOBACTAM 3.375 GM in SODIUM CHLORIDE 0.9% 100 ML IVPB SCH ×2 (03:39→13:36)
[2019-07-21 07:08] VITALS: RESP 16
[2019-07-21] MEDS: amLODIPine 10 MG TAB PO SCH (07:15)
[2019-07-21] MEDS: PANTOPRAZOLE 40 MG TABLET PO SCH (07:15)
[2019-07-21] MEDS: ATORVASTATIN 10 MG TAB PO SCH (07:15)
[2019-07-21 08:23] LABS: Basophils % (A) 0 %; Eosinophils # (A) 0.3 k/uL (0-0.7); Eosinophils % (A) 4 %; HCT 33.8 % (34.0-46.0); HGB 11.6 gm/dL (11.4-16.0); Lymphocytes # (A) 2.1 k/uL (1.0-4.8); Lymphocytes % (A) 28 %; MCH 30.8 pg (25.0-35.0); MCHC 34.3 g/dL (31.0-37.0); MCV 89.7 fL (80.0-100.0); Mean Platelet Volume 6.3; Monocytes # (A) 0.3 k/uL (0-1.0); Monocytes % (A) 4 %; Neutrophils # (A) 4.6 k/uL (1.3-7.7); Neutrophils % (A) 62 %; Platelet Count 281 k/uL (150-450); RBC 3.77 m/uL (3.80-5.40); RDW 12.5 % (11.5-15.5); WBC 7.4 k/uL (3.8-10.6)
[2019-07-21 08:49] LABS: Calcium 9.9 mg/dL (8.4-10.2); Potassium 4.5 mmol/L (3.5-5.1)
--- NOTE | 2019-07-21 09:19 | P.PN ---
Subjective Progress Note Date: 07/21/19 The patient continues to respond with antibiotics for her diverticulitis. She does have or distal ureteral stone. She is scheduled for surgical removal 07/24/2019 at the [facility]. The patient was informed of this. A urologic standpoint she can be discharged home. Nothing by mouth after midnight on Wednesday. This is been discussed with the patient. Objective - Vital Signs Vital signs: Vital Signs Temp 97.1 F L 07/21/19 07:00 Pulse 58 L 07/21/19 07:00 Resp 16 07/21/19 07:00 BP 136/65 07/21/19 07:00 Pulse Ox 96 07/21/19 07:00 Intake & Output 07/20/19 07/21/19 07/21/19 18:59 06:59 18:59 Intake Total 700 Output Total 3 Balance -3 700 Weight 72.575 kg Intake: Oral 700 Output: Urine 3 Other: Voiding Method Toilet # Voids 1 - Labs CBC & Chem 7: 07/19/19 11:08 07/19/19 11:08 Labs: Microbiology - Last 24 Hours (Table) 07/18/19 12:54 Blood Culture - Preliminary Blood No Growth after 48 hours
--- NOTE | 2019-07-21 13:41 | P.PN ---
Subjective Progress Note Date: 07/21/19 CHIEF COMPLAINT: Abdominal pain HISTORY OF PRESENT ILLNESS: Patient examined at the bedside. Patient continues to have abdominal pain, although is it improved since yesterday. She states the pain is lower now and thinks it may be due to her kidney stone. Tolerating full liquid diet. Denies nausea or vomiting. Having loose bowel movements this morning. PHYSICAL EXAM: VITAL SIGNS: Reviewed. GENERAL: Well-developed in no acute distress. HEENT: No sclera icterus. Extraocular movements grossly intact. Moist buccal mucosa. Head is atraumatic, normocephalic. ABDOMEN: Soft. Nondistended. Mild tenderness with palpation to left lower qu adrant. NEUROLOGIC: Alert and oriented. Cranial nerves II through XII grossly intact. ASSESSMENT: 1. Abdominal pain 2. Acute diverticulitis PLAN: 1. Advance diet 2. Continue antibiotics 3. No surgical intervention recommended at this time 4. Stable for discharge from a surgical standpoint 5. Follow up outpatient with Dr. Sevilla Nurse practitioner note has been reviewed by physician. Signing provider agrees with the documented findings, assessment, and plan of care. Objective - Vital Signs Vital signs: Vital Signs Temp 97.1 F L 07/21/19 07:00 Pulse 58 L 07/21/19 07:00 Resp 16 07/21/19 07:00 BP 136/65 07/21/19 07:00 Pulse Ox 96 07/21/19 07:00 Intake & Output 07/20/19 07/21/19 07/21/19 18:59 06:59 18:59 Intake Total 700 Output Total 3 Balance -3 700 Weight 72.575 kg Intake: Oral 700 Output: Urine 3 Other: Voiding Method Toilet Toilet # Voids 1 3 # Bowel Movements 4 - Labs CBC & Chem 7: 07/21/19 08:01 07/21/19 08:01 Labs: Abnormal Lab Results - Last 24 Hours (Table) 07/21/19 07/21/19 Range/Units 08:01 08:01 RBC 3.77 L (3.80-5.40) m/uL Hct 33.8 L (34.0-46.0) % Chloride 113 H (98-107) mmol/L Creatinine 1.14 H (0.52-1.04) mg/dL Microbiology - Last 24 Hours (Table) 07/18/19 12:54 Blood Culture - Preliminary Blood No Growth after 48 hours
[2019-07-21 14:12] VITALS: BP 152/87; PULSE 59; TEMP 98
== END 2019-07-21 15:51 | disposition home or self-care (01) | DRG 391 ==
LOC: EC 08:20 → 4MS4W 11:57
PROVIDERS: ADMIT Family Medicine; ATTEND Family Medicine
DX: K57.32 Diverticulitis of large intestine without perforation or abscess without bleeding (principal); N17.0 Acute kidney failure with tubular necrosis; K31.1 Adult hypertrophic pyloric stenosis; N13.2 Hydronephrosis with renal and ureteral calculous obstruction; I72.8 Aneurysm of other specified arteries; E78.5 Hyperlipidemia, unspecified; I10 Essential (primary) hypertension; J45.20 Mild intermittent asthma, uncomplicated; K21.9 Gastro-esophageal reflux disease without esophagitis; N83.202 Unspecified ovarian cyst, left side; Z79.899 Other long term (current) drug therapy; Z79.82 Long term (current) use of aspirin; Z87.891 Personal history of nicotine dependence; Z87.442 Personal history of urinary calculi; Z80.1 Family history of malignant neoplasm of trachea, bronchus and lung
CPT/HCPCS: 36415; 74019; 74177; 76856; 80048; 80053; 81003; 82105; 82150; 82378; 83605; 83690; 85025; 86301; 86304; 87040; 87324; 96361; 96365; 96366; 96375; 99285

== ENCOUNTER → 2019-09-06 | Day surgery (SDC) | payer OTHER ==
[2019-09-01 13:31] VITALS: BMI 29.2
[~2019-09-06] MED LIST changes: +LIDOCAINE 1% 20 ML VIAL (10MG/ML) FOR IV START INTRADERMA PRN; +LIDOCAINE 1% INJ 10MG/ML (20 ML MDV) ONE; +PROPOFOL 10 MG/ML 20 ML VIAL IV ONE
[2019-09-06 07:27] VITALS: RESP 16; TEMP 96
--- NOTE | 2019-09-06 07:59 | P.GSHP ---
History of Present Illness H&P Date: 09/06/19 Chief Complaint: Diverticulitis This is a 64-year-old female who presents today for colonoscopy. Patient history of diverticulitis. Past Medical History Past Medical History: Asthma, GERD/Reflux, GI Bleed, Hyperlipidemia, Hypertension Additional Past Medical History / Comment(s): blood in stool past, diarrhea,vertigo, kidney stones, diverticulitis History of Any Multi-Drug Resistant Organisms: None Reported Past Surgical History: Section Past Anesthesia/Blood Transfusion Reactions: No Reported Reaction Smoking Status: Former smoker - Past Family History Father Family Medical History: Cancer Additional Family Medical History / Comment(s): lung, aortic aneursym Mother Family Medical History: Dementia Medications and Allergies Home Medications Medication Instructions Recorded Confirmed Type Atorvastatin [Lipitor] 10 mg PO DAILY 08/19/18 09/06/19 History Escitalopram [Lexapro] 20 mg PO HS 08/19/18 09/06/19 History Lisinopril 20 mg PO DAILY 08/19/18 09/06/19 History Montelukast Sodium [Singulair] 10 mg PO DAILY 08/19/18 09/06/19 History Omeprazole 40 mg PO DAILY 08/19/18 09/06/19 History amLODIPine [Norvasc] 10 mg PO DAILY 08/19/18 09/06/19 History traZODone HCL 200 mg PO HS 08/19/18 09/06/19 History Albuterol Inhaler [Ventolin Hfa 1 - 2 puff INHALATION RT-Q6H PRN 09/01/19 09/06/19 History Inhaler] Potvsgm-Naby-Otci [id number] 1 each PO DAILY PRN 09/01/19 09/01/19 History [Excedrin] Fluticasone/Salmeterol [Airduo 1 puff INHALATION BID 09/01/19 09/06/19 History Respiclick 55-14 Mcg] Multivitamins, Thera [Multivitamin 1 tab PO DAILY 09/01/19 09/01/19 History (formulary)] Allergies Allergy/AdvReac Type Severity Reaction Status Date / Time No Known Allergies Allergy Verified 09/06/19 07:15 Surgical - Exam Vital Signs Temp Pulse Resp BP Pulse Ox 96.0 F L 62 16 131/70 93 L 09/06/19 07:26 09/06/19 07:26 09/06/19 07:26 09/06/19 07:26 09/06/19 07:26 - General well developed, well nourished, no distress - Eyes PERRL - ENT normal pinna - Neck no masses - Respiratory normal expansion - Cardiovascular Rhythm: regular - Abdomen Abdomen: soft, non tender Assessment and Plan Assessment: History of diverticular lysed. We'll perform colonoscopy.
--- NOTE | 2019-09-06 08:14 | P.OP ---
Date of Procedure: 09/06/19 Preoperative Diagnosis: Diverticulitis Postoperative Diagnosis: Diverticulosis Procedure(s) Performed: Colonoscopy Anesthesia: MAC Surgeon: Tino Sevilla Pathology: none sent Condition: stable Disposition: PACU Description of Procedure: The patient's placed on the endoscopy table in the lateral position. She received IV sedation. Digital rectal exam was performed which revealed no abnormalities. The flexible colonoscope was then placed patient anus and passed throughout the entire colon. The ileocecal valve was visualized. The cecum, ascending and transverse colon appeared normal. In the descending and sigmoid colon there was moderate diverticular changes. Her is no evidence of diverticul itis. The scope was then brought back the rectum and this appeared normal. Scope was then removed from the patient.
[2019-09-06 08:49] VITALS: BP 153/69; PULSE 68
== END ==
LOC: ORWHC2ENDO 07:04
PROVIDERS: ATTEND Surgery
DX: K57.32 Diverticulitis of large intestine without perforation or abscess without bleeding (principal); K92.1 Melena; J45.909 Unspecified asthma, uncomplicated; K21.9 Gastro-esophageal reflux disease without esophagitis; Z87.19 Personal history of other diseases of the digestive system; E78.5 Hyperlipidemia, unspecified; I10 Essential (primary) hypertension; R42 Dizziness and giddiness; Z87.442 Personal history of urinary calculi; Z87.891 Personal history of nicotine dependence; Z80.1 Family history of malignant neoplasm of trachea, bronchus and lung; Z82.49 Family history of ischemic heart disease and other diseases of the circulatory system; Z81.8 Family history of other mental and behavioral disorders; Z79.82 Long term (current) use of aspirin; Z79.899 Other long term (current) drug therapy; J44.9 Chronic obstructive pulmonary disease, unspecified
CPT/HCPCS: 45378; J2001; J2704

== ENCOUNTER → 2020-06-12 | Outpatient (CLI) | payer OTHER ==
--- NOTE | 2020-06-12 15:09 | US ---
EXAMINATION TYPE: US pelvic complete DATE OF EXAM: 06/12/2020 COMPARISON: 07/19/2019 CLINICAL HISTORY: N83.202 ovarian cyst. HX of ovarian cyst TECHNIQUE: Transabdominal (TA). Transabdominal sonographic images of the pelvis were acquired. EXAM MEASUREMENTS: Uterus: 7.2 x 2.9 x 4.0 cm Endometrial Stripe: .6 cm Right Ovary: 1.6 x .6 x 1.0 cm Left Ovary: 2.4 x 2.5 x 2.5 cm 1. Uterus: Anteverted wnl 2. Endometrium: wnl 3. Right Ovary: wnl 4. Left Ovary: Cystic area 1.8 x 1.9 x 1.9 cm 5. Bilateral Adnexa: wnl 6. Posterior cul-de-sac: wnl IMPRESSION: 1. Cystic lesion left ovary slightly smaller in size. Correlate clinically. Differential diagnosis do es include benign versus malignant etiologies.
== END | disposition home or self-care (01) ==
LOC: RADUSWWP 14:10
PROVIDERS: ATTEND Family Medicine
DX: N83.202 Unspecified ovarian cyst, left side (principal)
CPT/HCPCS: 76856

== ENCOUNTER → 2020-10-22 | Outpatient (CLI) | payer OTHER ==
--- NOTE | 2020-10-28 10:37 | MM ---
Reason for exam: screening (asymptomatic). Last mammogram was performed 1 year and 10 months ago. History: Patient is postmenopausal and had first child at age 37. Physical Findings: A clinical breast exam by your physician is recommended on an annual basis and results should be correlated with mammographic findings. MG 3D Screening Mammo W/Cad Bilateral CC and MLO view(s) were taken. Prior study comparison: January 03, 2019, bilateral MG 3d screening mammo w/cad. November 11, 2015, mammogram, performed at [facility]. There are scattered fibroglandular densities. No significant changes when compared with prior studies. ASSESSMENT: Negative, BI-RAD 1 RECOMMENDATION: Routine screening mammogram of both breasts in 1 year.
== END | disposition home or self-care (01) ==
LOC: RADMAMWWP 13:02
PROVIDERS: ATTEND Family Medicine
DX: Z12.31 Encounter for screening mammogram for malignant neoplasm of breast (principal)
CPT/HCPCS: 77063; 77067

== ENCOUNTER 2020-12-23 18:09 | Inpatient (IN) | payer OTHER ==
[2020-12-23] MEDS ORDERED: SODIUM CHLORIDE 0.9% 1,000 ML IV STA ×2 (18:31)
[2020-12-23] MEDS ORDERED: ONDANSETRON 4 MG/2 ML VIAL IVP STA (18:31)
[2020-12-23] MEDS ORDERED: PANTOPRAZOLE 40 MG/10 ML VIAL IVP STA (18:31)
[2020-12-23] MEDS ORDERED: MORPHINE SULFATE 4 MG/ML SYRINGE IV STA (18:32)
[2020-12-23 18:52] LABS: Basophils # (A) 0.1 k/uL (0-0.2); Basophils % (A) 1 %; Eosinophils # (A) 0.4 k/uL (0-0.7); Eosinophils % (A) 3 %; HCT 46.5 % (34.0-46.0); HGB 16.2 gm/dL (11.4-16.0); Lymphocytes % (A) 25 %; MCH 31.2 pg (25.0-35.0); MCHC 34.9 g/dL (31.0-37.0); MCV 89.5 fL (80.0-100.0); Mean Platelet Volume 7.6; Monocytes # (A) 0.6 k/uL (0-1.0); Monocytes % (A) 5 %; Neutrophils # (A) 7.9 k/uL (1.3-7.7); Neutrophils % (A) 65 %; Platelet Count 250 k/uL (150-450); RDW 13.4 % (11.5-15.5); WBC 12.2 k/uL (3.8-10.6)
[2020-12-23 19:08] LABS: Albumin 5.1 g/dL (3.5-5.0); Calcium 11.5 mg/dL (8.4-10.2); Total Bilirubin 0.6 mg/dL (0.2-1.3); Total Protein 8.3 g/dL (6.3-8.2)
[2020-12-23 19:11] LABS: Partial Thromboplastin Time 23.7 sec (22.0-30.0); Prothrombin Time 10.5 sec (9.0-12.0)
--- NOTE | 2020-12-23 19:49 | CT ---
EXAMINATION TYPE: CT abdomen pelvis w con DATE OF EXAM: 12/23/2020 COMPARISON: 07/18/2019 HISTORY: Left lower quadrant abdominal pain. Diarrhea with bright red blood. History of diverticuliti s and renal stones. CT DLP: 1029.8 mGycm Automated exposure control for dose reduction was used. CONTRAST: Performed with IV Contrast, patient injected with 100 mL of Isovue 300. Images obtained from the diaphragm to the floor the pelvis with IV contrast. There are some patchy atelectasis at the lung bases. There is no pleural effusion. There is no perica rdial effusion. Heart is borderline enlarged. Liver spleen stomach pancreas appear normal. Bile ducts are not dilated. Gallbladder appears normal. There is no adrenal mass. Kidneys show satisfactory contrast opacification. The ureters are not dila davida. There are enlarged left renal calyces. There is hypodensity in the lower pole left kidney that i s probably contrast in the lower pole calyces on the initial images. There is no retroperitoneal adenopathy. Bladder distends smoothly. There is no inguinal hernia. There is no free fluid in the pelvis. There is some wall thickening involving the entire sigmoid colo n. There are numerous sigmoid diverticula. There is small 3 x 1.5 cm fluid collection posterior to th e proximal sigmoid colon. The lumbar vertebra have normal alignment. Disc spaces are fairly normal. There is no compression fra cture. The bony pelvis is intact. The hip joints are intact. IMPRESSION: Enlarged left renal calyces could relate to previous episode of obstruction. No obstruction seen on t his exam. Normal appendix. Wall thickening of the sigmoid colon with numerous diverticula. There is posterior proximal sigmoid c olon fluid collection suggestive of a peridiverticular abscess. There is improvement in the inflammat ory changes around the proximal sigmoid colon compared to old exam. Diverticular abscess not significantly changed in size compared to old exam. There is some mild atelectasis at the lung bases slightly increased compared to old exam.
[2020-12-23] MEDS ORDERED: metroNIDAZOLE-NS PMX 500 MG in SALINE 1 100ML.BAG IVPB STA (20:17)
[2020-12-23] MEDS ORDERED: MORPHINE SULFATE 2 MG/ML SYRINGE IVP STA (20:29)
[2020-12-23] MEDS ORDERED: ONDANSETRON 4 MG/2 ML VIAL IVP PRN (21:04)
[2020-12-23] MEDS ORDERED: NALOXONE 0.4 MG/ML 1 ML VIAL IV PRN (21:04)
[2020-12-23] MEDS ORDERED: ACETAMINOPHEN TAB 325 MG TAB PO PRN (21:04)
--- NOTE | 2020-12-23 21:04 | ED ---
General Adult HPI - General Chief complaint: GI Bleed Stated complaint: Abd Pain Time Seen by Provider: 12/23/20 18:20 Source: patient Mode of arrival: wheelchair Limitations: no limitations - History of Present Illness Initial comments: This 65 old female presents with a complaint of some left lower quadrant abdominal pain. The onset occurred earlier today. She states that it is fairly severe in nature. It is been associated with several episodes of bright red bloody stools. She does have a history of previous diverticulitis and this feels somewhat similar. Her last episode was approximately 2 years ago and she apparently did have an intra-abdominal abscess at that time. She also has had flareups approximately every 5 years prior to this. She denies any definitive fever or chills. She has had some nausea and one episode of vomiting. She did states that her stools have been loose in nature. No other complaints or modifying factors. - Related Data Home Medications Medication Instructions Recorded Confirmed Atorvastatin [Lipitor] 10 mg PO DAILY 08/19/18 09/06/19 Escitalopram [Lexapro] 20 mg PO HS 08/19/18 09/06/19 Montelukast Sodium [Singulair] 10 mg PO DAILY 08/19/18 09/06/19 Omeprazole 40 mg PO DAILY 08/19/18 09/06/19 amLODIPine [Norvasc] 10 mg PO DAILY 08/19/18 09/06/19 lisinopriL 20 mg PO DAILY 08/19/18 09/06/19 traZODone HCL 200 mg PO HS 08/19/18 09/06/19 Albuterol Inhaler (Mhu) [Ventolin 1 - 2 puff INHALATION RT-Q6H PRN 09/01/19 09/06/19 Hfa Inhaler] Fangmwk-Cwrd-Tsqh [id number] 1 each PO DAILY PRN 09/01/19 09/01/19 [Excedrin] Fluticasone/Salmeterol [Airduo 1 puff INHALATION BID 09/01/19 09/06/19 Respiclick 55-14 Mcg] Multivitamins, Thera [Multivitamin 1 tab PO DAILY 09/01/19 09/01/19 (formulary)] Allergies Allergy/AdvReac Type Severity Reaction Status Date / Time No Known Allergies Allergy Verified 12/23/20 20:58 Review of Systems ROS Statement: Those systems with pertinent positive or pertinent negative responses have been documented in the HPI. ROS Other: All systems not noted in ROS Statement are negative. Past Medical History Past Medical History: Asthma, GERD/Reflux, GI Bleed, Hyperlipidemia, Hypertension Additional Past Medical History / Comment(s): blood in stool past, diarrhea,vertigo, kidney stones, diverticulitis History of Any Multi-Drug Resistant Organisms: None Reported Past Surgical History: Section Past Anesthesia/Blood Transfusion Reactions: No Reported Reaction Past Psychological History: No Psychological Hx Reported Smoking Status: Never smoker Past Alcohol Use History: Occasional Past Drug Use History: None Reported - Past Family History Father Family Medical History: Cancer Additional Family Medical History / Comment(s): lung, aortic aneursym Mother Family Medical History: Dementia General Exam - General Exam Comments Initial Comments: GENERAL: The patient is well nourished and well hydrated. VITAL SIGNS: Heart rate, blood pressure, respiratory rate reviewed as recorded in nurse's notes. EYES: Pupils are round and reactive. Extraocular movements are intact. No conjunctival / lid redness or swelling. ENT: No external evidence of injury, swelling, or ecchymosis. Airway is patent. Throat is clear. NECK: Nontender. No swelling or evidence of injury. No subcutaneous emphysema. Trachea is midline. No thyroid mass. HEART: Regular rate and rhythm. Good peripheral pulses. LUNGS/CHEST: Breath sounds clear and equal bilaterally. No rales, rhonchi, or wheezes. No ecchymosis, subcutaneous emphysema, or tenderness. ABDOMEN: Tenderness noted to the left lower quadrant. No palpable masses or organomegaly. No peritoneal signs. No abdominal wall swelling or ecchymosis. EXTREMITIES: No extremity tenderness. Normal muscle tone and function. No thoracolumbar tenderness. NEUROLOGIC: Sensation is grossly intact. Cranial nerve exam reveals face is symmetrical, tongue is midline, speech is clear. SKIN: No abrasions or ecchymosis is noted. No induration or masses noted. PSYCHIATRIC: Alert and oriented. Appropriate behavior and judgment. Limitations: no limitations Course Vital Signs 12/23/20 12/23/20 18:10 18:55 Temperature 98.5 F Pulse Rate 57 L 55 L Respiratory 18 18 Rate Blood Pressure 160/85 150/77 O2 Sat by Pulse 95 95 Oximetry Medical Decision Making - Medical Decision Making The patient was seen and examined. All diagnostics were reviewed. An IV is established and she receives IV fluids as well as 4 mg of morphine and 4 mg of Zofran. She is feeling improved on recheck but still with abdominal pain and later receives 2 more milligrams of morphine. Her EKG shows a sinus bradycardia at a rate of 57. There is no acute ST-T wave changes identified. The CT intervals 166, QRS duration is 84, and the QTC intervals 412. The patient also had a laboratory analysis which shows a quite stable and slightly elevated hemoglobin. Her white blood cell count is slightly elevated. The computed tomography scan of the abdomen and pelvis was completed and does show evidence of diverticulitis with a small abscess which appears similar to her computed tomography scan and 2019 when she was admitted to our hospital. IV Rocephin and IV Flagyl are started. It is felt as though she would benefit from admission to the hospital. She is agreeable. She has seen Dr. Sevilla in the past. Case is discussed with him and he is agreeable with admission. - Lab Data Result diagrams: 12/23/20 18:40 12/23/20 18:40 Lab Results 12/23/20 12/23/20 12/23/20 Range/Units 18:30 18:40 18:40 WBC 12.2 H (3.8-10.6) k/uL RBC 5.20 (3.80-5.40) m/uL Hgb 16.2 H (11.4-16.0) gm/dL Hct 46.5 H (34.0-46.0) % MCV 89.5 (80.0-100.0) fL MCH 31.2 (25.0-35.0) pg MCHC 34.9 (31.0-37.0) g/dL RDW 13.4 (11.5-15.5) % Plt Count 250 (150-450) k/uL MPV 7.6 Neutrophils % 65 % Lymphocytes % 25 % Monocytes % 5 % Eosinophils % 3 % Basophils % 1 % Neutrophils # 7.9 H (1.3-7.7) k/uL Lymphocytes # 3.0 (1.0-4.8) k/uL Monocytes # 0.6 (0-1.0) k/uL Eosinophils # 0.4 (0-0.7) k/uL Basophils # 0.1 (0-0.2) k/uL PT 10.5 (9.0-12.0) sec INR 1.0 (<1.2) APTT 23.7 (22.0-30.0) sec Sodium (137-145) mmol/L Potassium (3.5-5.1) mmol/L Chloride (98-107) mmol/L Carbon Dioxide (22-30) mmol/L Anion Gap mmol/L BUN (7-17) mg/dL Creatinine (0.52-1.04) mg/dL Est GFR (CKD-EPI)AfAm (>60 ml/min/1.73 sqM) Est GFR (CKD-EPI)NonAf (>60 ml/min/1.73 sqM) Glucose (74-99) mg/dL Calcium (8.4-10.2) mg/dL Total Bilirubin (0.2-1.3) mg/dL AST (14-36) U/L ALT (4-34) U/L Alkaline Phosphatase (38-126) U/L Troponin I (0.000-0.034) ng/mL Total Protein (6.3-8.2) g/dL Albumin (3.5-5.0) g/dL Blood Type O Positive Blood Type Confirm Blood Type Recheck No Previous Record Bld Type Recheck Status CABO Indicated Antibody Screen NEGATIVE Spec Expiration Date 12/26/2020 - 233912/23/20 12/23/20 12/23/20 Range/Units 18:40 18:40 18:40 WBC (3.8-10.6) k/uL RBC (3.80-5.40) m/uL Hgb (11.4-16.0) gm/dL Hct (34.0-46.0) % MCV (80.0-100.0) fL MCH (25.0-35.0) pg MCHC (31.0-37.0) g/dL RDW (11.5-15.5) % Plt Count (150-450) k/uL MPV Neutrophils % % Lymphocytes % % Monocytes % % Eosinophils % % Basophils % % Neutrophils # (1.3-7.7) k/uL Lymphocytes # (1.0-4.8) k/uL Monocytes # (0-1.0) k/uL Eosinophils # (0-0.7) k/uL Basophils # (0-0.2) k/uL PT (9.0-12.0) sec INR (<1.2) APTT (22.0-30.0) sec Sodium 140 (137-145) mmol/L Potassium 4.0 (3.5-5.1) mmol/L Chloride 107 (98-107) mmol/L Carbon Dioxide 20 L (22-30) mmol/L Anion Gap 13 mmol/L BUN 15 (7-17) mg/dL Creatinine 0.99 (0.52-1.04) mg/dL Est GFR (CKD-EPI)AfAm 70 (>60 ml/min/1.73 sqM) Est GFR (CKD-EPI)NonAf 61 (>60 ml/min/1.73 sqM) Glucose 97 (74-99) mg/dL Calcium 11.5 H (8.4-10.2) mg/dL Total Bilirubin 0.6 (0.2-1.3) mg/dL AST 28 (14-36) U/L ALT 27 (4-34) U/L Alkaline Phosphatase 69 (38-126) U/L Troponin I <0.012 (0.000-0.034) ng/mL Total Protein 8.3 H (6.3-8.2) g/dL Albumin 5.1 H (3.5-5.0) g/dL Blood Type Blood Type Confirm O Positive Blood Type Recheck Bld Type Recheck Status Antibody Screen Spec Expiration Date Disposition Clinical Impression: Acute abdominal pain, Nausea, GI bleed, Diverticulitis of intestine with abscess and bleeding, Leukocytosis Disposition: ADMITTED IP TO THIS HOSP Condition: Fair Is patient prescribed a controlled substance at d/c from ED?: No Referrals: Larissa Sanchez MD [Primary Care Provider] - 1-2 days Time of Disposition: 21:03 Decision Date: 12/23/20 Decision Time: 21:04
[2020-12-23] MEDS ORDERED: ALBUTEROL NEBULIZED 2.5 MG/3 ML INHALATION PRN (21:30)
[2020-12-23] MEDS: HYDROcodone/APAP 5-325MG 1 EACH TAB PO PRN (22:28)
[2020-12-24] MEDS: MORPHINE SULFATE 4 MG/ML SYRINGE IV PRN ×2 (00:32→05:10)
[2020-12-24 06:30] LABS: Basophils # (A) 0.1 k/uL (0-0.2); Basophils % (A) 1 %; Eosinophils # (A) 0.2 k/uL (0-0.7); Eosinophils % (A) 3 %; HCT 40.7 % (34.0-46.0); HGB 13.8 gm/dL (11.4-16.0); Lymphocytes # (A) 2.5 k/uL (1.0-4.8); Lymphocytes % (A) 34 %; MCH 31.1 pg (25.0-35.0); MCHC 33.9 g/dL (31.0-37.0); MCV 91.7 fL (80.0-100.0); Mean Platelet Volume 7.5; Monocytes # (A) 0.5 k/uL (0-1.0); Monocytes % (A) 7 %; Neutrophils # (A) 3.9 k/uL (1.3-7.7); Neutrophils % (A) 53 %; Platelet Count 209 k/uL (150-450); RBC 4.44 m/uL (3.80-5.40); RDW 13.6 % (11.5-15.5); WBC 7.4 k/uL (3.8-10.6)
[2020-12-24] MEDS: HYDROcodone/APAP 5-325MG 1 EACH TAB PO PRN ×2 (08:34→13:01)
[2020-12-24] MEDS: TOPIRAMATE 25 MG TAB PO SCH ×2 (08:35→20:23)
[2020-12-24] MEDS: LORATADINE 10 MG TAB PO SCH (08:35)
[2020-12-24] MEDS: ATORVASTATIN 10 MG TAB PO SCH (08:35)
[2020-12-24] MEDS: amLODIPine 10 MG TAB PO SCH (08:35)
[2020-12-24] MEDS: MONTELUKAST 10 MG TAB PO SCH (08:36)
[2020-12-24] MEDS: PANTOPRAZOLE 40 MG/10 ML VIAL IV SCH (08:41)
[2020-12-24] MEDS: PIPERACILLIN-TAZOBACTAM 3.375 GM in SODIUM CHLORIDE 0.9% 100 ML IVPB SCH ×2 (08:49→16:59)
[2020-12-24] MEDS ORDERED: FLUTICASONE 50MCG/SPRAY NASAL 16GM EA NOSTRIL PRN (09:00)
[2020-12-24] MEDS: HYDROmorphone 1 MG/ML 1 ML SYRINGE IVP PRN ×3 (10:42→19:40)
--- NOTE | 2020-12-24 15:44 | P.GSHP ---
History of Present Illness H&P Date: 12/24/20 CHIEF COMPLAINT: Left lower quadrant abdominal pain HISTORY OF PRESENT ILLNESS: This is a 65-year-old female with a known history of diverticulitis with prior abscess, hyperlipidemia, migraines and hypertension. Her last episode of diverticulitis was in 2019. But she has flareups approximately every 5 years. She presented to the hospital complaints of left lower quadrant abdominal pain that started 2 nights ago. She reports that her stools have been loose with blood present. She states that the bleeding has stopped. The morphine is not lasting long enough for her pain. She's been started on IV antibiotics. She did have a white count of 12.2 on admission. Computed tomography scan of the abdomen and pelvis shows normal appendix. Wall thickening of the sigmoid colon with numerous diverticula. There is posterior proximal sigmoid colon fluid collections suggestive of a peridiverticular abscess. There is improvement in the inflammatory changes around the proximal sigmoid colon compared to the old exam. Diverticular abscess not significant change in size compared to old exam. Abscess measuring 3 x 1.5 cm. Patient denies any fever, chills or sweats. She does report having some nausea and one episode of vomiting. She is also been complaining of headache. PAST MEDICAL HISTORY: See list. PAST SURGICAL HISTORY: See list. MEDICATIONS: See list. ALLERGIES: See list. SOCIAL HISTORY: No illicit drug use. REVIEW OF SYSTEMS: CONSTITUTIONAL: Denies fever or chills. HEENT: Denies blurred vision, vision changes, or eye pain. Denies hemoptysis CARDIOVASCULAR: Denies chest pain or pressure. RESPIRATORY: No shortness of breath. GASTROINTESTINAL: See HPI for pertinent findings HEMATOLOGIC: Denies bleeding disorders. GENITOURINARY: Denies any blood in urine or increased urinary frequency. SKIN: Denies pruitis. Denies rash. PHYSICAL EXAM: VITAL SIGNS: Reviewed GENERAL: Well-developed in no acute distress. HEENT: No sclera icterus. Extraocular movements grossly intact. Moist buccal mucosa. Head is atraumatic, normocephalic. No nasal drainage. ABDOMEN: Soft. Nondistended. Left lower quadrant tenderness NEUROLOGIC: Alert and oriented. Cranial nerves II through XII grossly intact. LABORATORY DATA: WBC 12.2 down to 7.4 hemoglobin 13.8 LFTs normal IMAGING: Computed tomography scan of the abdomen and pelvis shows normal appendix. Wall thickening of the sigmoid colon with numerous diverticula. There is posterior proximal sigmoid colon fluid collections suggestive of a peridiverticular abscess. There is improvement in the inflammatory changes around the proximal sigmoid colon compared to the old exam. Diverticular abscess not significant change in size compared to old exam. Abscess measuring 3 x 1.5 cm. ASSESSMENT: 1. Acute diverticulitis with peridiverticular abscess posterior to the proximal sigmoid colon PLAN: -Dr. Sevilla did discuss with the patient surgical options. At this time patient would like to proceed with conservative treatment. -We'll keep patient nothing by mouth -Continue with IV antibiotics and IV fluids -Continue pain medication as needed -Medical service on consult for medical management -GI prophylaxis Protonix -DVT prophylaxis SCDs Physician Sliver Chopper note has been reviewed by physician. Signing provider agrees with the documented findings, assessment, and plan of care. Past Medical History Past Medical History: Asthma, GERD/Reflux, GI Bleed, Hyperlipidemia, Hypertension Additional Past Medical History / Comment(s): blood in stool past, diarrhea,vertigo, kidney stones, diverticulitis History of Any Multi-Drug Resistant Organisms: None Reported Past Surgical History: Section Past Anesthesia/Blood Transfusion Reactions: No Reported Reaction Past Psychological History: No Psychological Hx Reported Smoking Status: Never smoker Past Alcohol Use History: Occasional Additional Past Alcohol Use History / Comment(s): quit smoking 40 yrs. ago, smoked <ppd for 10 yrs Past Drug Use History: None Reported - Past Family History Father Family Medical History: Cancer Additional Family Medical History / Comment(s): lung, aortic aneursym Mother Family Medical History: Dementia Medications and Allergies Home Medications Medication Instructions Recorded Confirmed Type Atorvastatin [Lipitor] 10 mg PO DAILY 08/19/18 12/23/20 History Escitalopram [Lexapro] 20 mg PO HS 08/19/18 12/23/20 History Montelukast Sodium [Singulair] 10 mg PO DAILY 08/19/18 12/23/20 History amLODIPine [Norvasc] 10 mg PO DAILY 08/19/18 12/23/20 History traZODone HCL 200 mg PO HS 08/19/18 12/23/20 History Albuterol Sulfate [Proair Hfa] 1 - 2 puff INHALATION RT-QID PRN 12/23/20 12/23/20 History Fluticasone Nasal [place] [Flonase 1 - 2 spr EA NOSTRIL DAILY PRN 12/23/20 0 12/23/20 History Nasal [place]] Loratadine 10 mg PO DAILY 12/23/20 12/23/20 History Omeprazole 20 mg PO DAILY 12/23/20 12/23/20 History Rizatriptan Benzoate [Maxalt] 10 mg PO DAILY PRN 12/23/20 12/23/20 History Topiramate [Topamax] 50 mg PO BID 12/23/20 12/23/20 History Allergies Allergy/AdvReac Type Severity Reaction Status Date / Time No Known Allergies Allergy Verified 12/23/20 20:58 Surgical - Exam Vital Signs Temp Pulse Resp BP Pulse Ox 98.5 F 57 L 18 160/85 95 12/23/20 18:10 12/23/20 18:10 12/23/20 18:10 12/23/20 18:10 12/23/20 18:10 Results - Labs 12/24/20 05:54 12/23/20 18:40 Abnormal Lab Results - Last 24 Hours (Table) 12/23/20 12/23/20 12/24/20 Range/Units 18:40 18:40 05:54 WBC 12.2 H (3.8-10.6) k/uL Hgb 16.2 H (11.4-16.0) gm/dL Hct 46.5 H (34.0-46.0) % Neutrophils # 7.9 H (1.3-7.7) k/uL Carbon Dioxide 20 L (22-30) mmol/L Calcium 11.5 H (8.4-10.2) mg/dL Total Protein 8.3 H (6.3-8.2) g/dL Albumin 5.1 H (3.5-5.0) g/dL TSH 10.200 H (0.350-5.500) uIU/mL Diabetes panel 12/23/20 Range/Units 18:40 Sodium 140 (137-145) mmol/L Potassium 4.0 (3.5-5.1) mmol/L Chloride 107 (98-107) mmol/L Carbon Dioxide 20 L (22-30) mmol/L BUN 15 (7-17) mg/dL Creatinine 0.99 (0.52-1.04) mg/dL Glucose 97 (74-99) mg/dL Calcium 11.5 H (8.4-10.2) mg/dL AST 28 (14-36) U/L ALT 27 (4-34) U/L Alkaline Phosphatase 69 (38-126) U/L Total Protein 8.3 H (6.3-8.2) g/dL Albumin 5.1 H (3.5-5.0) g/dL Thyroid panel 12/24/20 Range/Units 05:54 TSH 10.200 H (0.350-5.500) uIU/mL Calcium panel 12/23/20 Range/Units 18:40 Calcium 11.5 H (8.4-10.2) mg/dL Albumin 5.1 H (3.5-5.0) g/dL Pituitary panel 12/23/20 12/24/20 Range/Units 18:40 05:54 Sodium 140 (137-145) mmol/L Potassium 4.0 (3.5-5.1) mmol/L Chloride 107 (98-107) mmol/L Carbon Dioxide 20 L (22-30) mmol/L BUN 15 (7-17) mg/dL Creatinine 0.99 (0.52-1.04) mg/dL Glucose 97 (74-99) mg/dL Calcium 11.5 H (8.4-10.2) mg/dL TSH 10.200 H (0.350-5.500) uIU/mL Adrenal panel 12/23/20 Range/Units 18:40 Sodium 140 (137-145) mmol/L Potassium 4.0 (3.5-5.1) mmol/L Chloride 107 (98-107) mmol/L Carbon Dioxide 20 L (22-30) mmol/L BUN 15 (7-17) mg/dL Creatinine 0.99 (0.52-1.04) mg/dL Glucose 97 (74-99) mg/dL Calcium 11.5 H (8.4-10.2) mg/dL Total Bilirubin 0.6 (0.2-1.3) mg/dL AST 28 (14-36) U/L ALT 27 (4-34) U/L Alkaline Phosphatase 69 (38-126) U/L Total Protein 8.3 H (6.3-8.2) g/dL Albumin 5.1 H (3.5-5.0) g/dL
[2020-12-24] MEDS: SUMAtriptan succinate 50 MG TAB PO PRN (20:23)
[2020-12-24] MEDS: ESCITALOPRAM 20 MG TAB PO SCH (21:02)
[2020-12-24] MEDS: traZODone HCL 100 MG TAB PO SCH (21:02)
[2020-12-25] MEDS: PIPERACILLIN-TAZOBACTAM 3.375 GM in SODIUM CHLORIDE 0.9% 100 ML IVPB SCH ×4 (00:07→23:21)
[2020-12-25] MEDS: HYDROcodone/APAP 5-325MG 1 EACH TAB PO PRN ×4 (00:20→23:44)
[2020-12-25] MEDS: HYDROmorphone 1 MG/ML 1 ML SYRINGE IVP PRN ×4 (00:21→19:21)
[2020-12-25] MEDS: ATORVASTATIN 10 MG TAB PO SCH (07:43)
[2020-12-25] MEDS: PANTOPRAZOLE 40 MG/10 ML VIAL IV SCH (07:43)
[2020-12-25] MEDS: LORATADINE 10 MG TAB PO SCH (07:43)
[2020-12-25] MEDS: MONTELUKAST 10 MG TAB PO SCH (07:44)
[2020-12-25] MEDS: TOPIRAMATE 25 MG TAB PO SCH ×2 (07:44→20:50)
[2020-12-25] MEDS: amLODIPine 10 MG TAB PO SCH (07:46)
[2020-12-25] MEDS: SUMAtriptan succinate 50 MG TAB PO PRN (09:53)
--- NOTE | 2020-12-25 10:15 | P.CONS ---
History of Present Illness - Reason for Consult Consult date: 12/24/20 Medical management - Chief Complaint Abdominal pain/GI bleed - History of Present Illness 65 old female presents with a complaint of some left lower quadrant abdominal pain. The onset occurred earlier today. She states that it is fairly severe in nature. It is been associated with several episodes of bright red bloody stools. She does have a history of previous diverticulitis and this feels somewhat similar. Her last episode was approximately 2 years ago and she apparently did have an intra-abdominal abscess at that time. She also has had flareups approximately every 5 years prior to this. She denies any definitive fever or chills. She has had some nausea and one episode of vomiting. She did states that her stools have been loose in nature. No other complaints or modifying factors. Workup in ED with EKG shows a sinus bradycardia at a rate of 57. There is no acute ST-T wave changes identified. The ME intervals 166, QRS duration is 84, and the QTC intervals 412. The patient also had a laboratory analysis which shows a quite stable and slightly elevated hemoglobin. Her white blood cell count is slightly elevated. The computed tomography scan of the abdomen and pelvis was completed and does show evidence of diverticulitis with a small abscess which appears similar to her computed tomography scan and 2019 when she was admitted to our hospital. IV Rocephin and IV Flagyl are started. Review of Systems REVIEW OF SYSTEMS: CONSTITUTIONAL: No fever, no malaise, no fatigue. HEENT: No recent visual problems or hearing problems. Denied any sore throat. CARDIOVASCULAR: No chest pain, orthopnea, PND, no palpitations, no syncope. PULMONARY: No shortness of breath, no cough, no hemoptysis. GASTROINTESTINAL: No diarrhea, no nausea, no vomiting, no abdominal pain. NEUROLOGICAL: No headaches, no weakness, no numbness. HEMATOLOGICAL: Denies any bleeding or petechiae. GENITOURINARY: Denies any burning micturition, frequency, or urgency. MUSCULOSKELETAL/RHEUMATOLOGICAL: Denies any joint pain, swelling, or any muscle pain. ENDOCRINE: Denies any polyuria or polydipsia. The rest of the 14-point review of systems is negative. Past Medical History Past Medical History: Asthma, GERD/Reflux, GI Bleed, Hyperlipidemia, Hypertension Additional Past Medical History / Comment(s): blood in stool past, diarrhea,vertigo, kidney stones, diverticulitis History of Any Multi-Drug Resistant Organisms: None Reported Past Surgical History: Section Past Anesthesia/Blood Transfusion Reactions: No Reported Reaction Past Psychological History: No Psychological Hx Reported Smoking Status: Never smoker Past Alcohol Use History: Occasional Additional Past Alcohol Use History / Comment(s): quit smoking 40 yrs. ago, smoked <ppd for 10 yrs Past Drug Use History: None Reported - Past Family History Father Family Medical History: Cancer Additional Family Medical History / Comment(s): lung, aortic aneursym Mother Family Medical History: Dementia Medications and Allergies Home Medications Medication Instructions Recorded Confirmed Type Atorvastatin [Lipitor] 10 mg PO DAILY 08/19/18 12/23/20 History Escitalopram [Lexapro] 20 mg PO HS 08/19/18 12/23/20 History Montelukast Sodium [Singulair] 10 mg PO DAILY 08/19/18 12/23/20 History amLODIPine [Norvasc] 10 mg PO DAILY 08/19/18 12/23/20 History traZODone HCL 200 mg PO HS 08/19/18 12/23/20 History Albuterol Sulfate [Proair Hfa] 1 - 2 puff INHALATION RT-QID PRN 12/23/20 12/23/20 History Fluticasone Nasal [place] [Flonase 1 - 2 spr EA NOSTRIL DAILY PRN 12/23/20 12/23/20 History Nasal [place]] Loratadine 10 mg PO DAILY 12/23/20 12/23/20 History Omeprazole 20 mg PO DAILY 12/23/20 12/23/20 History Rizatriptan Benzoate [Maxalt] 10 mg PO DAILY PRN 12/23/20 12/23/20 History Topiramate [Topamax] 50 mg PO BID 12/23/20 12/23/20 History Allergies Allergy/AdvReac Type Severity Reaction Status Date / Time No Known Allergies Allergy Verified 12/23/20 20:58 Physical Exam Vitals: Vital Signs Temp Pulse Pulse Resp BP BP Pulse Ox 12/24/20 02:52 97.6 F 42 L 15 106/61 95 12/23/20 21:48 97.9 F 48 L 14 126/75 95 12/23/20 20:12 59 L 18 131/79 98 12/23/20 18:55 55 L 18 150/77 95 12/23/20 18:10 98.5 F 57 L 18 160/85 95 Intake and Output 12/23/20 12/24/20 12/24/20 22:59 06:59 14:59 Intake Total 0 Output Total 0 Balance 0 Intake: Oral 0 Output: Urine 0 Other: Weight 76.204 kg General appearance: Present: average body habitus, cooperative, no acute distress Eyes: Present: anicteric sclerae, EOMI, PERRLA, normal appearance ENT: Present: hearing grossly normal, normal oropharynx Ears: bilateral: normal Neck: Present: normal ROM. Absent: lymphadenopathy, rigidity, thyromegaly Carotids: negative: bruit present Thyroid: bilateral: normal size, negative: enlarged, nodule Respiratory: bilateral: CTA, negative: rales, rhonchi, wheezing - Cardiovascular Rhythm: regular Heart sounds: normal: S1, S2 Abnormal Heart Sounds: Absent: systolic murmur, diastolic murmur - Gastrointestinal General gastrointestinal: Present: normal bowel sounds, soft. Absent: distended, organomegaly, positive for generalized tenderness Genitourinary Comment(s): deferred Integumentary: Present: normal turgor. Absent: jaundiced, rash, ulcer Neurologic: Present: CNII-XII intact. Absent: focal deficits Musculoskeletal: Present: gait normal, strength equal bilaterally Psychiatric: Present: A&O x's 3, appropriate affect, intact judgment & insight Results CBC & Chem 7: 12/24/20 05:54 12/23/20 18:40 Labs: Abnormal Lab Results - Last 24 Hours (Table) 12/23/20 12/23/20 Range/Units 18:40 18:40 WBC 12.2 H (3.8-10.6) k/uL Hgb 16.2 H (11.4-16.0) gm/dL Hct 46.5 H (34.0-46.0) % Neutrophils # 7.9 H (1.3-7.7) k/uL Carbon Dioxide 20 L (22-30) mmol/L Calcium 11.5 H (8.4-10.2) mg/dL Total Protein 8.3 H (6.3-8.2) g/dL Albumin 5.1 H (3.5-5.0) g/dL Assessment and Plan Assessment: 1. Acute diverticulitis with peridiverticular abscess - Patient has been started on Zosyn 3.375 g IV every 8 hours; your management 2. Sinus bradycardia; we will order EKG and place on court recording monitor; check thyroid profile 3. Hypertension; continue with home dose of amlodipine 10 mg daily 4. Hyperlipidemia; patient takes Lipitor 10 mg daily 5. Migraine headaches; patient takes Topamax 50 mg twice a day and Maxalt 10 mg daily when necessary; we will start on home dose of Topamax and uses Imitrex when necessary 6. Asthma; not in exacerbation; continue with albuterol nebulizer treatments 4 times a day when necessary, Singulair 10 mg daily, Flonase nasal spray twice a day when necessary 7. Depression; Lexapro 20 mg daily at bedtime with trazodone 200 mg at at bedtime DVT prophylaxis; SCDs CODE STATUS; full code
[2020-12-25] MEDS: KETOROLAC 15 MG/ML 1 ML VIAL IVP SCH ×2 (14:35→20:51)
--- NOTE | 2020-12-25 15:49 | P.PN ---
Subjective Progress Note Date: 12/25/20 CHIEF COMPLAINT: Left lower quadrant abdominal pain HISTORY OF PRESENT ILLNESS: Patient is being followed for acute diverticulitis with peridiverticular abscess. Patient reports slight improvement in her pain. She rates her pain 6 out of 10 yesterday she was rating her pain 7 out of 10. She is passing gas. She's had no blood present with the gas. She denies any bowel movement. She denies any nausea or vomiting. She is hungry. She is complaining of a headache. Afebrile. Labs for today are pending PHYSICAL EXAM: VITAL SIGNS: Reviewed. GENERAL: Well-developed in no acute distress. HEENT: No sclera icterus. Extraocular movements grossly intact. Moist buccal mucosa. Head is atraumatic, normocephalic. ABDOMEN: Soft. Nondistended. Left lower quadrant tenderness NEUROLOGIC: Alert and oriented. Cranial nerves II through XII grossly intact. ASSESSMENT: 1. Acute diverticulitis with peridiverticular abscess posterior to the proximal sigmoid colon PLAN: -Dr. Sevilla did discuss with the patient surgical options. At this time patient would like to proceed with conservative treatment. -Advance diet to clear liquids -Continue with IV antibiotics and IV fluids -Continue pain medication as needed -Add Toradol 3 doses for headache -GI prophylaxis Protonix -DVT prophylaxis SCDs Physician Cable Splicing Technician note has been reviewed by physician. Signing provider agrees with the documented findings, assessment, and plan of care. Objective - Vital Signs Vital signs: Vital Signs Temp 98.2 F 12/25/20 14:00 Pulse 56 L 12/25/20 14:00 Resp 20 12/25/20 14:00 BP 112/76 12/25/20 14:00 Pulse Ox 94 L 12/25/20 14:00 Intake & Output 12/24/20 12/25/20 12/25/20 18:59 06:59 18:59 Intake Total 200 Balance 200 Intake: IV 200 Piperacillin-Tazobactam 3 200 .375 gm In Sodium Chloride 0.9% 100 ml @ 25 mls/hr IVPB Q8HR [facility] Rx# :[id number] Other: # Voids 2 - Labs CBC & Chem 7: 12/24/20 05:54 12/23/20 18:40
[2020-12-25 17:29] LABS: Basophils # (A) 0.04 X 10*3/uL (0.00-0.10); Basophils % (A) 0.5 %; Eosinophils # (A) 0.22 X 10*3/uL (0.04-0.35); Eosinophils % (A) 2.5 %; HCT 43.4 % (37.2-46.3); HGB 13.7 g/dL (12.0-15.0); Lymphocytes # (A) 2.15 X 10*3/uL (0.90-5.00); Lymphocytes % (A) 24.8 %; MCH 30.2 pg (27.0-32.0); MCHC 31.6 g/dL (32.0-37.0); MCV 95.8 fL (80.0-97.0); Mean Platelet Volume 10.9 fL (9.5-12.2); Monocytes # (A) 0.72 X 10*3/uL (0.20-1.00); Monocytes % (A) 8.3 %; Neutrophils # (A) 5.52 X 10*3/uL (1.80-7.70); Neutrophils % (A) 63.8 %; Platelet Count 217 X 10*3/uL (140-440); RBC 4.53 X 10*6/uL (4.10-5.20); RDW 14.1 % (11.5-14.5); WBC 8.66 X 10*3/uL (4.50-10.00)
[2020-12-25] MEDS: traZODone HCL 100 MG TAB PO SCH (20:51)
[2020-12-25] MEDS: ESCITALOPRAM 20 MG TAB PO SCH (20:51)
[2020-12-26 00:12] LABS: African American GFR (CKD) 61.4 (60.0-200.0); Anion Gap 13.9 mmol/L (4.00-12.00); BUN/Creat Ratio 10.91 Ratio (12.00-20.00); Carbon Dioxide 18.1 mmol/L (21.6-31.8); Potassium 3.8 mmol/L (3.5-5.5)
[2020-12-26] MEDS: KETOROLAC 15 MG/ML 1 ML VIAL IVP SCH (02:38)
[2020-12-26] MEDS: HYDROmorphone 1 MG/ML 1 ML SYRINGE IVP PRN ×3 (05:45→23:22)
[2020-12-26] MEDS: LEVOTHYROXINE 25 MCG TAB PO SCH (05:45)
[2020-12-26] MEDS: PIPERACILLIN-TAZOBACTAM 3.375 GM in SODIUM CHLORIDE 0.9% 100 ML IVPB SCH ×3 (07:59→23:22)
[2020-12-26] MEDS: PANTOPRAZOLE 40 MG/10 ML VIAL IV SCH (07:59)
[2020-12-26] MEDS: HYDROcodone/APAP 5-325MG 1 EACH TAB PO PRN ×3 (08:00→19:11)
[2020-12-26] MEDS: MONTELUKAST 10 MG TAB PO SCH (08:00)
[2020-12-26] MEDS: ATORVASTATIN 10 MG TAB PO SCH (08:00)
[2020-12-26] MEDS: LORATADINE 10 MG TAB PO SCH (08:00)
[2020-12-26] MEDS: TOPIRAMATE 25 MG TAB PO SCH ×2 (08:00→20:17)
[2020-12-26] MEDS: amLODIPine 10 MG TAB PO SCH (08:02)
[2020-12-26 09:42] LABS: African American GFR (CKD) 74 (>60 ml/min/1.73 sqM); Anion Gap 7 mmol/L; Blood Urea Nitrogen 10 mg/dL (7-17); Calcium 8.6 mg/dL (8.4-10.2); Carbon Dioxide 22 mmol/L (22-30); Chloride 114 mmol/L (98-107); Glucose 131 mg/dL (74-99); Non-African American GFR(CKD) 64 (>60 ml/min/1.73 sqM); Potassium 3.9 mmol/L (3.5-5.1); Sodium 143 mmol/L (137-145)
[2020-12-26] MEDS: DOCUSATE 100 MG CAP PO SCH ×2 (10:34→20:17)
--- NOTE | 2020-12-26 14:00 | P.PN ---
Subjective Progress Note Date: 12/26/20 CHIEF COMPLAINT: Left lower quadrant abdominal pain HISTORY OF PRESENT ILLNESS: Patient is being followed for acute diverticulitis with peridiverticular abscess. Patient reports slight improvement in her pain. She rates her pain 5 out of 10. She is passing gas. She denies any bowel movement. She denies any nausea or vomiting. Headache improved. She is tolerating clear liquids. Afebrile. Patient has been bradycardic and had cardiac pauses. Cardiology service is now on consult. PHYSICAL EXAM: VITAL SIGNS: Reviewed. GENERAL: Well-developed in no acute distress. HEENT: No sclera icterus. Extraocular movements grossly intact. Moist buccal mucosa. Head is atraumatic, normocephalic. ABDOMEN: Soft. Nondistended. Left lower quadrant tenderness NEUROLOGIC: Alert and oriented. Cranial nerves II through XII grossly intact. ASSESSMENT: 1. Acute diverticulitis with peridiverticular abscess posterior to the proximal sigmoid colon PLAN: -Dr. Sevilla did discuss with the patient surgical options. At this time patient would like to proceed with conservative treatment. -continue clear liquids -Continue with IV antibiotics and IV fluids -Continue pain medication as needed -GI prophylaxis Protonix -DVT prophylaxis add [place] heparin Physician Retail Team Leader note has been reviewed by physician. Signing provider agrees with the documented findings, assessment, and plan of care. Objective - Vital Signs Vital signs: Vital Signs Temp 98 F 12/26/20 08:00 Pulse 46 L 12/26/20 08:00 Resp 16 12/26/20 08:00 BP 115/74 12/26/20 08:00 Pulse Ox 92 L 12/26/20 08:00 Intake & Output 12/25/20 12/26/20 12/26/20 18:59 06:59 18:59 Intake Total 200 496 Balance 200 496 Intake: IV 200 200 Piperacillin-Tazobactam 3 200 200 .375 gm In Sodium Chloride 0.9% 100 ml @ 25 mls/hr IVPB Q8HR [facility] Rx# :[id number] Oral 296 Other: Voiding Method Toilet # Voids 2 - Labs CBC & Chem 7: 12/25/20 05:22 12/26/20 09:01 Labs: Abnormal Lab Results - Last 24 Hours (Table) 12/25/20 12/25/20 12/26/20 Range/Units 05:22 05:22 09:01 MCHC 31.6 L (32.0-37.0) g/dL Chloride 111 H 114 H (96-109) mmol/L Carbon Dioxide 18.1 L (21.6-31.8) mmol/L Anion Gap 13.90 H (4.00-12.00) mmol/L Est GFR (CKD-EPI)NonAf 53.0 L (60.0-200.0) BUN/Creatinine Ratio 10.91 L (12.00-20.00) Ratio Glucose 131 H (74-99) mg/dL
--- NOTE | 2020-12-26 14:44 | P.CRDCN ---
History of Present Illness Consult date: 12/26/20 History of present illness: HISTORY OF PRESENT ILLNESS: This is a 65-year-old female with a past medical history significant for hypertension, hyperlipidemia, asthma, GERD, diverticulitis and former nicotine dependence. Patient does not follow with a program analyst. We have been asked to see the patient in consultation for bradycardia. Patient examined at the bedside. Patient is currently admitted to the hospital secondary to acute diverticulitis with abscess formation. She is being followed by general surgery and has opted for conservative management at this time. During auscultation, patient was noted to be bradycardic with a heart rate in the 40s and 50s. She was placed on telemetry monitoring. Patient is having pauses with the longest being 2.2 seconds. The majority of her pauses appear to be overnight while she is sleeping. Patient is not currently on any AV juan blocking agents. Patient denies having any history of bradycardia in the past. Patient denies any previous thyroid problems. Patient's TSH was found to be 10.200. Free T4 1.10. She was started on Synthroid per internal medicine. Patient denies any history of sleep apnea to her knowledge but states she has never been evaluated for this. Patient's is at the bedside and reports that patient snores on a daily basis at home. EKG reveals sinus bradycardia with no signs of acute ischemia. No AV block noted. Laboratory data: WBC 8.66, Hemoglobin 13.7, Platelet count 217, Sodium 143, Potassium 3.9, BUN 10, Creatinine 0.95, Troponin negative 1, TSH 10.200. Free T4 1 0.10. Current home cardiac medications include amlodipine 10 mg daily and Lipitor 10 mg daily. REVIEW OF SYSTEMS: At the time of my exam: CONSTITUTIONAL: Denies fever or chills. HEENT: Denies blurred vision, vision changes, or eye pain. Denies hemoptysis CARDIOVASCULAR: Denies chest pain. Denies orthopnea. Denies PND. Denies palpitations RESPIRATORY: Denies shortness of breath. GASTROINTESTINAL: Denies abdominal pain. Denies nausea or vomiting. HEMATOLOGIC: Denies bleeding disorders. GENITOURINARY: Denies any blood in urine. SKIN: Denies pruitis. Denies rash. PHYSICAL EXAM: VITAL SIGNS: Reviewed. GENERAL: Well-developed in no acute distress. HEENT: Head is normocephalic. Pupils are equal, round. Sclerae anicteric. Mucous membranes of the mouth are moist. Neck supple. No JVD or thyromegaly LUNGS: Respirations even and unlabored. Lungs essentially clear to auscultation bilaterally. HEART: Regular rate and rhythm. S1 and S2 heard. ABDOMEN: Soft. Mild tenderness. Nondistended EXTREMITIES: Normal range of motion. No clubbing or cyanosis. Peripheral pulses intact. No lower extremity edema NEUROLOGIC: Awake and alert. Oriented x 3. ASSESSMENT: Acute diverticulitis with abscess formation, treated conservatively per general surgery Sinus bradycardia with sinus pauses Subclinical hypothyroidism, started on Synthroid per internal medicine Hypertension Hyperlipidemia Asthma GERD Former nicotine dependence Obesity: BMI 31.7 PLAN: Obtain 2-D echo to assess cardiac structure and function Continue telemetry monitoring Avoid any AV juan blocking agents Patient with suspected sleep apnea. Recommend outpatient sleep study when acute diverticulitis has resolved Further recommendations pending patient's course Nurse practitioner note has been reviewed by physician. Signing provider agrees with the documented findings, assessment, and plan of care. Past Medical History Past Medical History: Asthma, GERD/Reflux, GI Bleed, Hyperlipidemia, Hypertension Additional Past Medical History / Comment(s): blood in stool past, diarrhea,vertigo, kidney stones, diverticulitis History of Any Multi-Drug Resistant Organisms: None Reported Past Surgical History: Section Past Anesthesia/Blood Transfusion Reactions: No Reported Reaction Past Psychological History: No Psychological Hx Reported Smoking Status: Never smoker Past Alcohol Use History: Occasional Additional Past Alcohol Use History / Comment(s): quit smoking 40 yrs. ago, smoked <ppd for 10 yrs Past Drug Use History: None Reported - Past Family History Father Family Medical History: Cancer Additional Family Medical History / Comment(s): lung, aortic aneursym Mother Family Medical History: Dementia Medications and Allergies Home Medications Medication Instructions Recorded Confirmed Type Atorvastatin [Lipitor] 10 mg PO DAILY 08/19/18 12/23/20 History Escitalopram [Lexapro] 20 mg PO HS 08/19/18 12/23/20 History Montelukast Sodium [Singulair] 10 mg PO DAILY 08/19/18 12/23/20 History amLODIPine [Norvasc] 10 mg PO DAILY 08/19/18 12/23/20 History traZODone HCL 200 mg PO HS 08/19/18 12/23/20 History Albuterol Sulfate [Proair Hfa] 1 - 2 puff INHALATION RT-QID PRN 12/23/20 12/23/20 History Fluticasone Nasal Boring [Flonase 1 - 2 spr EA NOSTRIL DAILY PRN 12/23/20 12/23/20 History Nasal Boring] Loratadine 10 mg PO DAILY 12/23/20 12/23/20 History Omeprazole 20 mg PO DAILY 12/23/20 12/23/20 History Rizatriptan Benzoate [Maxalt] 10 mg PO DAILY PRN 12/23/20 12/23/20 History Topiramate [Topamax] 50 mg PO BID 12/23/20 12/23/20 History Allergies Allergy/AdvReac Type Severity Reaction Status Date / Time No Known Allergies Allergy Verified 12/23/20 20:58 Physical Exam Vitals: Vital Signs Temp Pulse Resp BP Pulse Ox 12/26/20 14:00 98 F 60 16 120/62 95 12/26/20 08:00 98 F 46 L 16 115/74 92 L 12/26/20 02:35 97.9 F 52 L 16 128/74 92 L 12/25/20 19:25 98.8 F 54 L 16 149/62 93 L Intake and Output 12/25/20 12/26/20 12/26/20 22:59 06:59 14:59 Intake Total 496 Balance 496 Intake: IV 200 Piperacillin-Tazobactam 3 200 .375 gm In Sodium Chloride 0.9% 100 ml @ 25 mls/hr IVPB Q8HR [facility] Rx# :[id number] Oral 296 Other: Voiding Method Toilet # Voids 2 Results 12/25/20 05:22 12/26/20 09:01 CBC 12/25/20 Range/Units 05:22 WBC 8.66 (4.50-10.00) X 10*3/uL RBC 4.53 (4.10-5.20) X 10*6/uL Hgb 13.7 (12.0-15.0) g/dL Hct 43.4 (37.2-46.3) % Plt Count 217 (140-440) X 10*3/uL Comprehensive Metabolic Panel 12/25/20 12/26/20 Range/Units 05:22 09:01 Sodium 143 143 (135-145) mmol/L Potassium 3.8 3.9 (3.5-5.5) mmol/L Chloride 111 H 114 H (96-109) mmol/L Carbon Dioxide 18.1 L 22 (21.6-31.8) mmol/L BUN 12.0 10 (9.0-27.0) mg/dL Creatinine 1.1 0.95 (0.6-1.5) mg/dL Glucose 91 131 H (70-110) mg/dL Calcium 9.0 8.6 (8.7-10.3) mg/dL Current Medications Generic Name Dose Route Start Last Admin Trade Name Freq PRN Reason Stop Dose Admin Acetaminophen 650 mg 12/23/20 21:04 Acetaminophen Tab 325 Mg Tab PO Q6HR PRN Mild Pain or Fever > 100.5 Hydrocodone Bitart/Acetaminophen 1 each 12/23/20 21:04 12/26/20 12:27 Hydrocodone/Apap 5-325mg 1 Each Tab PO 1 each Q4HR PRN Administration Moderate Pain Albuterol Sulfate 2.5 mg 12/23/20 21:30 12/25/20 07:47 Albuterol Nebulized 2.5 Mg/3 Ml INHALATION 2.5 mg RT-QID PRN Administration Shortness Of Breath Amlodipine Besylate 10 mg 12/24/20 09:00 12/26/20 08:02 Amlodipine 10 Mg Tab PO 10 mg DAILY [facility] Administration Atorvastatin Calcium 10 mg 12/24/20 09:00 12/26/20 08:00 Atorvastatin 10 Mg Tab PO 10 mg DAILY [facility] Administration Docusate Sodium 100 mg 12/26/20 10:00 12/26/20 10:34 Docusate 100 Mg Cap PO 100 mg BID [facility] Administration Escitalopram Oxalate 20 mg 12/24/20 21:00 12/25/20 20:51 Escitalopram 20 Mg Tab PO 20 mg HS [facility] Administration Fluticasone Propionate 2 spray 12/24/20 09:00 Fluticasone 50mcg/Boring Nasal 16gm EA NOSTRIL DAILY PRN Allergy Symptoms Heparin Sodium (Porcine) 5,000 unit 12/26/20 21:00 Heparin Sodium,Porcine 5,000 Unit/Ml 1 Ml Vial SQ Q12HR [facility] Hydromorphone HCl 1 mg 12/24/20 09:10 12/26/20 05:45 Hydromorphone 1 Mg/Ml 1 Ml Syringe IVP 1 mg Q3HR PRN Administration Pain Piperacillin Sod/Tazobactam 100 mls @ 25 mls/hr 12/24/20 08:15 12/26/20 07:59 Sod 3.375 gm/ Sodium Chloride IVPB 25 mls/hr Q8HR [facility] Administration Levothyroxine Sodium 25 mcg 12/26/20 06:30 12/26/20 05:45 Levothyroxine 25 Mcg Tab PO 25 mcg DAILY@0630 [facility] Administration Loratadine 10 mg 12/24/20 09:00 12/26/20 08:00 Loratadine 10 Mg Tab PO 10 mg DAILY [facility] Administration Montelukast Sodium 10 mg 12/24/20 09:00 12/26/20 08:00 Montelukast 10 Mg Tab PO 10 mg DAILY [facility] Administration Naloxone HCl 0.2 mg 12/23/20 21:04 Naloxone 0.4 Mg/Ml 1 Ml Vial IV Q2M PRN Opioid Reversal Ondansetron HCl 4 mg 12/23/20 21:04 Ondansetron 4 Mg/2 Ml Vial IVP Q4HR PRN Nausea And Vomiting Pantoprazole Sodium 40 mg 12/24/20 09:00 12/26/20 07:59 Pantoprazole 40 Mg/10 Ml Vial IV 40 mg DAILY [facility] Administration Sumatriptan Succinate 100 mg 12/24/20 09:00 12/25/20 09:53 Sumatriptan Succinate 50 Mg Tab PO 100 mg DAILY PRN Administration Migraine Headache Topiramate 50 mg 12/24/20 09:00 12/26/20 08:00 Topiramate 25 Mg Tab PO 50 mg BID [facility] Administration Trazodone HCl 200 mg 12/24/20 21:00 12/25/20 20:51 Trazodone Hcl 100 Mg Tab PO 200 mg HS [facility] Administration Intake and Output 12/25/20 12/26/20 12/26/20 22:59 06:59 14:59 Intake Total 496 Balance 496 Intake: IV 200 Piperacillin-Tazobactam 3 200 .375 gm In Sodium Chloride 0.9% 100 ml @ 25 mls/hr IVPB Q8HR [facility] Rx# :[id number] Oral 296 Other: Voiding Method Toilet # Voids 2 12/25/20 05:22 12/26/20 09:01
--- NOTE | 2020-12-26 15:06 | P.PN ---
Subjective Progress Note Date: 12/25/20 Principal diagnosis: Acute diverticulitis with. Diverticular abscess Sinus bradycardia Hypothyroidism 65 old female presents with a complaint of some left lower quadrant abdominal pain. The onset occurred earlier today. She states that it is fairly severe in nature. It is been associated with several episodes of bright red bloody stools. She does have a history of previous diverticulitis and this feels somewhat similar. Her last episode was approximately 2 years ago and she apparently did have an intra-abdominal abscess at that time. She also has had flareups approximately every 5 years prior to this. She denies any definitive fever or chills. She has had some nausea and one episode of vomiting. She did states that her stools have been loose in nature. No other complaints or modifying factors. Workup in ED with EKG shows a sinus bradycardia at a rate of 57. There is no acute ST-T wave changes identified. The UT intervals 166, QRS duration is 84, and the QTC intervals 412. The patient also had a laboratory analysis which shows a quite stable and slightly elevated hemoglobin. Her white blood cell count is slightly elevated. The computed tomography scan of the abdomen and pelvis was completed and does show evidence of diverticulitis with a small a bscess which appears similar to her computed tomography scan and 2019 when she was admitted to our hospital. IV Rocephin and IV Flagyl are started. Objective - Vital Signs Vital signs: Vital Signs Temp 98.2 F 12/25/20 07:14 Pulse 68 12/25/20 07:57 Resp 20 12/25/20 07:14 BP 105/64 12/25/20 07:14 Pulse Ox 91 L 12/25/20 07:14 Intake & Output 12/24/20 12/25/20 12/25/20 18:59 06:59 18:59 Other: # Voids 2 - Exam - Constitutional General appearance: Present: average body habitus, cooperative, no acute distress - EENT Eyes: Present: anicteric sclerae, EOMI, PERRLA, normal appearance ENT: Present: hearing grossly normal, normal oropharynx Ears: bilateral: normal - Neck Neck: Present: normal ROM. Absent: lymphadenopathy, rigidity, thyromegaly Carotids: negative: bruit present Thyroid: bilateral: normal size, negative: enlarged, nodule - Respiratory Respiratory: bilateral: CTA, negative: rales, rhonchi, wheezing - Cardiovascular Rhythm: regular Heart sounds: normal: S1, S2 Abnormal Heart Sounds: Absent: systolic murmur, diastolic murmur - Gastrointestinal General gastrointestinal: Present: normal bowel sounds, soft. Absent: distended, organomegaly, tenderness - Genitourinary Genitourinary Comment(s): deferred - Integumentary Integumentary: Present: normal turgor. Absent: jaundiced, rash, ulcer - Neurologic Neurologic: Present: CNII-XII intact. Absent: focal deficits - Musculoskeletal Musculoskeletal: Present: gait normal, strength equal bilaterally - Psychiatric Psychiatric: Present: A&O x's 3, appropriate affect, intact judgment & insight - Labs CBC & Chem 7: 12/25/20 05:22 12/26/20 09:01 Labs: Abnormal Lab Results - Last 24 Hours (Table) 12/24/20 Range/Units 05:54 TSH 10.200 H (0.350-5.500) uIU/mL Assessment and Plan Assessment: 1. Acute diverticulitis with peridiverticular abscess - Patient has been started on Zosyn 3.375 g IV every 8 hours; your management 2. Sinus bradycardia; we will order EKG and place on bus monitor; check thyroid profile 3. Hypertension; continue with home dose of amlodipine 10 mg daily 4. Hyperlipidemia; patient takes Lipitor 10 mg daily 5. Migraine headaches; patient takes Topamax 50 mg twice a day and Maxalt 10 mg daily when necessary; we will start on home dose of Topamax and uses Imitrex when necessary 6. Asthma; not in exacerbation; continue with albuterol nebulizer treatments 4 times a day when necessary, Singulair 10 mg daily, Flonase nasal spray twice a day when necessary 7. Depression; Lexapro 20 mg daily at bedtime with trazodone 200 mg at at bedtime DVT prophylaxis; SCDs CODE STATUS; full code
--- NOTE | 2020-12-26 15:18 | P.PN ---
Subjective Progress Note Date: 12/26/20 Principal diagnosis: Acute diverticulitis with. Diverticular abscess Sinus bradycardia Hypothyroidism 65 old female presents with a complaint of some left lower quadrant abdominal pain. The onset occurred earlier today. She states that it is fairly severe in nature. It is been associated with several episodes of bright red bloody stools. She does have a history of previous diverticulitis and this feels somewhat similar. Her last episode was approximately 2 years ago and she apparently did have an intra-abdominal abscess at that time. She also has had flareups approximately every 5 years prior to this. She denies any definitive fever or chills. She has had some nausea and one episode of vomiting. She did states that her stools have been loose in nature. No other complaints or modifying factors. Workup in ED with EKG shows a sinus bradycardia at a rate of 57. There is no acute ST-T wave changes identified. The CO intervals 166, QRS duration is 84, and the QTC intervals 412. The patient also had a laboratory analysis which shows a quite stable and slightly elevated hemoglobin. Her white blood cell count is slightly elevated. The computed tomography scan of the abdomen and pelvis was completed and does show evidence of diverticulitis with a small a bscess which appears similar to her computed tomography scan and 2019 when she was admitted to our hospital. IV Rocephin and IV Flagyl are started. 12/26/2020 Patient seen and evaluated with at bedside; patient and had multiple questions which were answered to the satisfaction Abdomen reporting episodes of bradycardia with heart rate dipping down in 30s w ith pauses; cardiology is consulted; patient remains on monitor; EKG done which reveals sinus bradycardia; echocardiogram is ordered and pending Levothyroxine has been increased based on TSH and free T4 results Patient remains on IV antibiotics for diverticulitis; surgery on board and plans for conservative treatment Objective - Vital Signs Vital signs: Vital Signs Temp 98 F 12/26/20 14:00 Pulse 60 12/26/20 14:00 Resp 16 12/26/20 14:00 BP 120/62 12/26/20 14:00 Pulse Ox 95 12/26/20 14:00 Intake & Output 12/25/20 12/26/20 12/26/20 18:59 06:59 18:59 Intake Total 200 496 Balance 200 496 Intake: IV 200 200 Piperacillin-Tazobactam 3 200 200 .375 gm In Sodium Chloride 0.9% 100 ml @ 25 mls/hr IVPB Q8HR [facility] Rx# :[id number] Oral 296 Other: Voiding Method Toilet # Voids 2 - Exam - Constitutional General appearance: Present: average body habitus, cooperative, no acute distress - EENT Eyes: Present: anicteric sclerae, EOMI, PERRLA, normal appearance ENT: Present: hearing grossly normal, normal oropharynx Ears: bilateral: normal - Neck Neck: Present: normal ROM. Absent: lymphadenopathy, rigidity, thyromegaly Carotids: negative: bruit present Thyroid: bilateral: normal size, negative: enlarged, nodule - Respiratory Respiratory: bilateral: CTA, negative: rales, rhonchi, wheezing - Cardiovascular Rhythm: regular Heart sounds: normal: S1, S2 Abnormal Heart Sounds: Absent: systolic murmur, diastolic murmur - Gastrointestinal General gastrointestinal: Present: normal bowel sounds, soft. Absent: distended, organomegaly, tenderness - Genitourinary Genitourinary Comment(s): deferred - Integumentary Integumentary: Present: normal turgor. Absent: jaundiced, rash, ulcer - Neurologic Neurologic: Present: CNII-XII intact. Absent: focal deficits - Musculoskeletal Musculoskeletal: Present: gait normal, strength equal bilaterally - Psychiatric Psychiatric: Present: A&O x's 3, appropriate affect, intact judgment & insight - Labs CBC & Chem 7: 12/25/20 05:22 12/26/20 09:01 Labs: Abnormal Lab Results - Last 24 Hours (Table) 12/25/20 12/25/20 12/26/20 Range/Units 05:22 05:22 09:01 MCHC 31.6 L (32.0-37.0) g/dL Chloride 111 H 114 H (96-109) mmol/L Carbon Dioxide 18.1 L (21.6-31.8) mmol/L Anion Gap 13.90 H (4.00-12.00) mmol/L Est GFR (CKD-EPI)NonAf 53.0 L (60.0-200.0) BUN/Creatinine Ratio 10.91 L (12.00-20.00) Ratio Glucose 131 H (74-99) mg/dL Assessment and Plan Assessment: 1. Acute diverticulitis with peridiverticular abscess - Patient has been started on Zosyn 3.375 g IV every 8 hours; your management 2. Sinus bradycardia; we will order EKG and place on project manager process development; check thyroid profile 3. Hypertension; continue with home dose of amlodipine 10 mg daily 4. Hyperlipidemia; patient takes Lipitor 10 mg daily 5. Migraine headaches; patient takes Topamax 50 mg twice a day and Maxalt 10 mg daily when necessary; we will start on home dose of Topamax and uses Imitrex when necessary 6. Asthma; not in exacerbation; continue with albuterol nebulizer treatments 4 times a day when necessary, Singulair 10 mg daily, Flonase nasal spray twice a day when necessary 7. Depression; Lexapro 20 mg daily at bedtime with trazodone 200 mg at at b edtime DVT prophylaxis; SCDs CODE STATUS; full code
[2020-12-26] MEDS: traZODone HCL 100 MG TAB PO SCH (20:17)
[2020-12-26] MEDS: ESCITALOPRAM 20 MG TAB PO SCH (20:17)
[2020-12-26] MEDS: HEPARIN SODIUM,PORCINE 5,000 UNIT/ML 1 ML VIAL SQ SCH (20:17)
[2020-12-27] MEDS: LEVOTHYROXINE 25 MCG TAB PO SCH (05:38)
[2020-12-27] MEDS: HYDROcodone/APAP 5-325MG 1 EACH TAB PO PRN ×4 (05:40→23:58)
[2020-12-27] MEDS: LORATADINE 10 MG TAB PO SCH (07:28)
[2020-12-27] MEDS: PANTOPRAZOLE 40 MG/10 ML VIAL IV SCH (07:28)
[2020-12-27] MEDS: TOPIRAMATE 25 MG TAB PO SCH ×2 (07:29→21:32)
[2020-12-27] MEDS: MONTELUKAST 10 MG TAB PO SCH (07:29)
[2020-12-27] MEDS: ATORVASTATIN 10 MG TAB PO SCH (07:29)
[2020-12-27] MEDS: PIPERACILLIN-TAZOBACTAM 3.375 GM in SODIUM CHLORIDE 0.9% 100 ML IVPB SCH ×3 (07:29→23:53)
[2020-12-27] MEDS: amLODIPine 10 MG TAB PO SCH (07:29)
[2020-12-27] MEDS: DOCUSATE 100 MG CAP PO SCH ×2 (07:29→21:32)
[2020-12-27] MEDS: HEPARIN SODIUM,PORCINE 5,000 UNIT/ML 1 ML VIAL SQ SCH ×2 (07:30→21:32)
--- NOTE | 2020-12-27 11:25 | P.PN ---
Subjective Progress Note Date: 12/27/20 Principal diagnosis: Sinus bradycardia This is a very pleasant 65-year-old female patient who was admitted to the hospital with abdominal discomfort and was diagnosed with acute diverticulitis with abscess formation. The patient was treated conservatively. We consulted to see the patient mainly because of sinus bradycardia. The patient was diagnosed with hypothyroidism which was subclinical and she was started on Synthroid. She was seen today. She denies any dizziness or lightheadedness at this point. She denies any shortness of breath or any chest pain or chest discomfort. She was started on Synthroid yesterday. Hemodynamically the heart rate continues to be in the 40s. The pressure has been within normal limits. She is not on any AV juan qiana agents. An echocardiogram was performed and will follow-up on that. Objective - Vital Signs Vital signs: Vital Signs Temp 98 F 12/27/20 07:40 Pulse 46 L 12/27/20 08:00 Resp 16 12/27/20 08:00 BP 148/90 12/27/20 07:40 Pulse Ox 95 12/27/20 07:40 Intake & Output 12/26/20 12/27/20 12/27/20 18:59 06:59 18:59 Intake Total 496 100 Balance 496 100 Intake: IV 200 Piperacillin-Tazobactam 3 200 .375 gm In Sodium Chloride 0.9% 100 ml @ 25 mls/hr IVPB Q8HR [facility] Rx# :[id number] Oral 296 100 Other: Voiding Method Toilet Toilet # Voids 1 - Constitutional General appearance: Present: no acute distress - Respiratory Respiratory: bilateral: CTA - Cardiovascular Rhythm: regular Heart sounds: normal: S1, S2 - Labs CBC & Chem 7: 12/25/20 05:22 12/26/20 09:01 Assessment and Plan Assessment: Assessment #1 acute diverticulitis #2 sinus bradycardia #3 subclinical hypothyroidism Plan #1 avoid any AV juan qiana agents #2 continue monitor the heart rate #3 consider permanent pacemaker if the heart rate did not improve #4 follow-up on the echocardiogram #5 follow-up on the patient
--- NOTE | 2020-12-27 11:49 | P.PN ---
Subjective Progress Note Date: 12/27/20 CHIEF COMPLAINT: Left lower quadrant abdominal pain HISTORY OF PRESENT ILLNESS: Patient is being followed for acute diverticulitis with peridiverticular abscess. Patient reports mild improvement in her pain each day. She rates her pain 4 out of 10. She is passing gas. She did have a bowel movement with no blood. She denies any nausea or vomiting. Headache improved. She is tolerating clear liquids. Afebrile. Patient has been bradycardic and had cardiac pauses. Patient was started on Synthroid by medicine service. Her TSH was elevated. Cardiology service is following and evaluating for possible need of pacemaker. PHYSICAL EXAM: VITAL SIGNS: Reviewed. GENERAL: Well-developed in no acute distress. HEENT: No sclera icterus. Extraocular movements grossly intact. Moist buccal mucosa. Head is atraumatic, normocephalic. ABDOMEN: Soft. Nondistended. Left lower quadrant tenderness NEUROLOGIC: Alert and oriented. Cranial nerves II through XII grossly intact. ASSESSMENT: 1. Acute diverticulitis with peridiverticular abscess posterior to the proximal sigmoid colon PLAN: -Add Toradol to help with pain -If patient's abdominal pain continues to persist will repeat computed tomogr aphy scan of abdomen -Dr. Sevilla did discuss with the patient surgical options. At this time pat ient would like to proceed with conservative treatment. -continue clear liquids -Continue with IV antibiotics and IV fluids -Continue pain medication as needed -GI prophylaxis Protonix -DVT prophylaxis add SC heparin Physician Guest Attendant note has been reviewed by physician. Signing provider agrees with the documented findings, assessment, and plan of care. Objective - Vital Signs Vital signs: Vital Signs Temp 98 F 12/27/20 07:40 Pulse 46 L 12/27/20 08:00 Resp 16 12/27/20 08:00 BP 148/90 12/27/20 07:40 Pulse Ox 95 12/27/20 07:40 Intake & Output 12/26/20 12/27/20 12/27/20 18:59 06:59 18:59 Intake Total 496 100 Balance 496 100 Intake: IV 200 Piperacillin-Tazobactam 3 200 .375 gm In Sodium Chloride 0.9% 100 ml @ 25 mls/hr IVPB Q8HR [facility] Rx# :[id number] Oral 296 100 Other: Voiding Method Toilet Toilet # Voids 1 - Labs CBC & Chem 7: 12/25/20 05:22 12/26/20 09:01
--- NOTE | 2020-12-27 13:00 | ECHOF ---
Referral Reason:LV function, bradycardia MEASUREMENTS -------- HEIGHT: 154.9 cm WEIGHT: 76.2 kg BP: 115/74 RVIDd: 2.6 cm (< 3.3) IVSd: 1.2 cm (0.6 - 1.1) LVIDd: 4.5 cm (3.9 - 5.3) LVPWd: 1.2 cm (0.6 - 1.1) IVSs: 1.7 cm LVIDs: 2.5 cm LVPWs: 1.6 cm LA Diam: 3.5 cm (2.7 - 3.8) LAESV Index (A-L): 24.86 ml/m Ao Diam: 3.0 cm (2.0 - 3.7) AV Cusp: 2.0 cm (1.5 - 2.6) MV EXCURSION: 17.918 mm (> 18.000) MV EF SLOPE: 120 mm/s (70 - 150) EPSS: 0.3 cm MV E Taj: 1.14 m/s MV DecT: 204 ms MV A Taj: 0.81 m/s MV E/A Ratio: 1.41 AR PHT: 908 ms RAP: 5.00 mmHg RVSP: 28.50 mmHg FINDINGS -------- Resting bradycardia (HR<60bpm). This was a technically good study. The left ventricular size is normal. There is borderline concentric left ventricular hypertrophy. Overall left ventricular systolic function is normal with, an EF between 60 - 65 %. The right ventricle is normal in size. Normal LA size by volume 22+/-6 ml/m2. The right atrium is normal in size. Interatrial and interventricular septum intact. There is mild aortic regurgitation. There is trace to mild mitral regurgitation. Mild tricuspid regurgitation present. Trace/mild (physiologic) pulmonic regurgitation. The aortic root size is normal. Normal inferior vena cava with normal inspiratory collapse consistent with estimated right atrial pre ssure of 5 mmHg. There is no pericardial effusion. CONCLUSIONS -------- 1. Resting bradycardia (HR<60bpm). 2. The left ventricular size is normal. 3. There is borderline concentric left ventricular hypertrophy. 4. Overall left ventricular systolic function is normal with, an EF between 60 - 65 %. 5. There is mild aortic regurgitation. 6. There is trace to mild mitral regurgitation. 7. Mild tricuspid regurgitation present. 8. Trace/mild (physiologic) pulmonic regurgitation. 9. There is no pericardial effusion. STRU[employer]URAL METAL WORKER: Trang Saleh RDCS
[2020-12-27] MEDS: KETOROLAC 15 MG/ML 1 ML VIAL IVP SCH ×2 (17:45→23:53)
--- NOTE | 2020-12-27 18:21 | P.PN ---
Subjective Progress Note Date: 12/27/20 Principal diagnosis: Acute diverticulitis with. Diverticular abscess Sinus bradycardia Hypothyroidism 65 old female presents with a complaint of some left lower quadrant abdominal pain. The onset occurred earlier today. She states that it is fairly severe in nature. It is been associated with several episodes of bright red bloody stools. She does have a history of previous diverticulitis and this feels somewhat similar. Her last episode was approximately 2 years ago and she apparently did have an intra-abdominal abscess at that time. She also has had flareups approximately every 5 years prior to this. She denies any definitive fever or chills. She has had some nausea and one episode of vomiting. She did states that her stools have been loose in nature. No other complaints or modifying factors. Workup in ED with EKG shows a sinus bradycardia at a rate of 57. There is no acute ST-T wave changes identified. The [place] intervals 166, QRS duration is 84, and the QTC intervals 412. The patient also had a laboratory analysis which shows a quite stable and slightly elevated hemoglobin. Her white blood cell count is slightly elevated. The computed tomography scan of the abdomen and pelvis was completed and does show evidence of diverticulitis with a small a bscess which appears similar to her computed tomography scan and 2019 when she was admitted to our hospital. IV Rocephin and IV Flagyl are started. 12/26/2020 Patient seen and evaluated with at bedside; patient and had multiple questions which were answered to the satisfaction Abdomen reporting episodes of bradycardia with heart rate dipping down in 30s w ith pauses; cardiology is consulted; patient remains on monitor; EKG done which reveals sinus bradycardia; echocardiogram is ordered and pending Levothyroxine has been increased based on TSH and free T4 results Patient remains on IV antibiotics for diverticulitis; surgery on board and plans for conservative treatment 12/27/2020 Patient is being followed for acute diverticulitis with peridiverticular abscess. Patient reports mild improvement in her pain each day. She rates her pain 4 out of 10. She is passing gas. She did have a bowel movement with no blood. She denies any nausea or vomiting. Headache improved. She is tolerating clear liquids. Afebrile. Patient has been bradycardic and had cardiac pauses. Patient was started on Synthroid for elevated TSH; patient has been evaluated by cardiology for asymptomatic bradycardia; patient's heart rate occasionally dipping down in 40s; cardiology following with plans for possible pacemaker placement if heart rate doesn't improve Objective - Vital Signs Vital signs: Vital Signs Temp 98 F 12/27/20 07:40 Pulse 46 L 12/27/20 08:00 Resp 16 12/27/20 08:00 BP 148/90 12/27/20 07:40 Pulse Ox 95 12/27/20 07:40 Intake & Output 12/26/20 12/27/20 12/27/20 18:59 06:59 18:59 Intake Total 496 100 Balance 496 100 Intake: IV 200 Piperacillin-Tazobactam 3 200 .375 gm In Sodium Chloride 0.9% 100 ml @ 25 mls/hr IVPB Q8HR LEYLA Rx# :[id number] Oral 296 100 Other: Voiding Method Toilet Toilet # Voids 1 - Exam - Constitutional General appearance: Present: average body habitus, cooperative, no acute distress - EENT Eyes: Present: anicteric sclerae, EOMI, PERRLA, normal appearance ENT: Present: hearing grossly normal, normal oropharynx Ears: bilateral: normal - Neck Neck: Present: normal ROM. Absent: lymphadenopathy, rigidity, thyromegaly Carotids: negative: bruit present Thyroid: bilateral: normal size, negative: enlarged, nodule - Respiratory Respiratory: bilateral: CTA, negative: rales, rhonchi, wheezing - Cardiovascular Rhythm: regular Heart sounds: normal: S1, S2 Abnormal Heart Sounds: Absent: systolic murmur, diastolic murmur - Gastrointestinal General gastrointestinal: Present: normal bowel sounds, soft. Absent: distended, organomegaly, tenderness - Genitourinary Genitourinary Comment(s): deferred - Integumentary Integumentary: Present: normal turgor. Absent: jaundiced, rash, ulcer - Neurologic Neurologic: Present: CNII-XII intact. Absent: focal deficits - Musculoskeletal Musculoskeletal: Present: gait normal, strength equal bilaterally - Psychiatric Psychiatric: Present: A&O x's 3, appropriate affect, intact judgment & insight - Labs CBC & Chem 7: 12/25/20 05:22 12/26/20 09:01 Assessment and Plan Assessment: 1. Acute diverticulitis with peridiverticular abscess - Patient has been started on Zosyn 3.375 g IV every 8 hours; your management 2. Sinus bradycardia; we will order EKG and place on secured entrance monitor; check thyroid profile 3. Hypertension; continue with home dose of amlodipine 10 mg daily 4. Hyperlipidemia; patient takes Lipitor 10 mg daily 5. Migraine headaches; patient takes Topamax 50 mg twice a day and Maxalt 10 mg daily when necessary; we will start on home dose of Topamax and uses Imitrex when necessary 6. Asthma; not in exacerbation; continue with albuterol nebulizer treatments 4 times a day when necessary, Singulair 10 mg daily, Flonase nasal spray twice a day when necessary 7. Depression; Lexapro 20 mg daily at bedtime with trazodone 200 mg at at bedtime DVT prophylaxis; SCDs CODE STATUS; full code
[2020-12-27] MEDS: ESCITALOPRAM 20 MG TAB PO SCH (21:32)
[2020-12-27] MEDS: traZODone HCL 100 MG TAB PO SCH (21:32)
[2020-12-28] MEDS: LEVOTHYROXINE 25 MCG TAB PO SCH (05:35)
[2020-12-28] MEDS: KETOROLAC 15 MG/ML 1 ML VIAL IVP SCH ×3 (05:35→17:22)
[2020-12-28] MEDS: HYDROcodone/APAP 5-325MG 1 EACH TAB PO PRN ×4 (05:35→22:08)
[2020-12-28] MEDS: PANTOPRAZOLE 40 MG/10 ML VIAL IV SCH (08:55)
[2020-12-28] MEDS: ATORVASTATIN 10 MG TAB PO SCH (08:56)
[2020-12-28] MEDS: MONTELUKAST 10 MG TAB PO SCH (08:56)
[2020-12-28] MEDS: DOCUSATE 100 MG CAP PO SCH ×2 (08:56→22:07)
[2020-12-28] MEDS: HEPARIN SODIUM,PORCINE 5,000 UNIT/ML 1 ML VIAL SQ SCH ×2 (08:56→22:08)
[2020-12-28] MEDS: amLODIPine 10 MG TAB PO SCH (08:56)
[2020-12-28] MEDS: LORATADINE 10 MG TAB PO SCH (08:56)
[2020-12-28] MEDS: TOPIRAMATE 25 MG TAB PO SCH ×2 (08:56→22:07)
[2020-12-28] MEDS: PIPERACILLIN-TAZOBACTAM 3.375 GM in SODIUM CHLORIDE 0.9% 100 ML IVPB SCH ×2 (08:57→15:51)
--- NOTE | 2020-12-28 11:21 | P.PN ---
Progress Note - Text Progress Note Date: 12/28/20 Patient still has complaints of left-sided abdominal pain. On exam vital signs are stable. Abdomen soft. There is tenderness left lower quadrant Patient will undergo repeat CAT scan of the abdomen and pelvis today. To evaluate her diverticulitis.
[2020-12-28 12:51] VITALS: BMI 31.7
[2020-12-28 12:56] LABS: Basophils # (A) 0.1 k/uL (0-0.2); Basophils % (A) 1 %; Eosinophils # (A) 0.3 k/uL (0-0.7); Eosinophils % (A) 4 %; HCT 42.8 % (34.0-46.0); Lymphocytes # (A) 1.9 k/uL (1.0-4.8); Lymphocytes % (A) 28 %; MCH 30.5 pg (25.0-35.0); MCHC 32.8 g/dL (31.0-37.0); MCV 93.1 fL (80.0-100.0); Mean Platelet Volume 7.7; Monocytes # (A) 0.4 k/uL (0-1.0); Monocytes % (A) 6 %; Neutrophils % (A) 58 %; Platelet Count 219 k/uL (150-450); RDW 13.8 % (11.5-15.5); WBC 6.8 k/uL (3.8-10.6)
[2020-12-28] MEDS: IOPAMIDOL CONTRAST (ORAL USE) VIAL PO PRN ×2 (12:58→13:54)
[2020-12-28 13:02] LABS: African American GFR (CKD) 79 (>60 ml/min/1.73 sqM); Anion Gap 9 mmol/L; Blood Urea Nitrogen 8 mg/dL (7-17); Calcium 9.3 mg/dL (8.4-10.2); Carbon Dioxide 18 mmol/L (22-30); Chloride 116 mmol/L (98-107); Glucose 116 mg/dL (74-99); Non-African American GFR(CKD) 68 (>60 ml/min/1.73 sqM); Potassium 3.9 mmol/L (3.5-5.1); Sodium 143 mmol/L (137-145)
--- NOTE | 2020-12-28 15:04 | CT ---
EXAMINATION TYPE: CT abdomen pelvis w con DATE OF EXAM: 12/28/2020 COMPARISON: HISTORY: Generalized pain with nausea CT DLP: 1085.1 mGycm Automated exposure control for dose reduction was used. TECHNIQUE: Helical acquisition of images from the lung bases through the pelvis have been completed. CONTRAST: Performed with Oral Contrast and with IV Contrast, patient injected with 100 mL of Isovue 300. FINDINGS: LUNG BASES: Bandlike areas of increased attenuation at the lung bases may reflect atelectasis or scar ring, difficult to exclude some basilar nodularity, axial image #18 right lower lobe, axial image #14 left lower lobe. AORTA: No significant abnormality is appreciated. LIVER/GB: No significant abnormality is appreciated. PANCREAS: No significant abnormality is seen. SPLEEN: No significant abnormality is seen. ADRENALS: No significant abnormality is seen. KIDNEYS: Nonobstructive calculi present at the lower pole left kidney, largest of at least 3-4 calcif ications measures approximately 1 cm, no evident ureteral calculi. REPRODUCTIVE ORGANS: Left ovarian cyst measures 17 mm BOWEL: There are diverticular changes associated with the colon, and the descending colon there is s ome areas of wall thickening which are indeterminate. No evident appendicitis. FREE AIR: No Free Air visible. ASCITES: None visible. PELVIC ADENOPATHY: None visualized. RETROPERITONEAL ADENOPATHY: No Retroperitoneal Adenopathy visible. URINARY BLADDER: No significant abnormality is seen. OSSEOUS STRUCTURES: No significant abnormality is seen. IMPRESSION: NONOBSTRUCTIVE LEFT NEPHROLITHIASIS. INDETERMINATE COLONIC WALL THICKENING, CORRELATE FOR COLITIS, TH ERE IS DIVERTICULOSIS. Possible lung nodularity posterior costophrenic sulci
--- NOTE | 2020-12-28 17:34 | P.PN ---
Subjective Progress Note Date: 12/28/20 Principal diagnosis: Acute diverticulitis with. Diverticular abscess Sinus bradycardia Hypothyroidism 65 old female presents with a complaint of some left lower quadrant abdominal pain. The onset occurred earlier today. She states that it is fairly severe in nature. It is been associated with several episodes of bright red bloody stools. She does have a history of previous diverticulitis and this feels somewhat similar. Her last episode was approximately 2 years ago and she apparently did have an intra-abdominal abscess at that time. She also has had flareups approximately every 5 years prior to this. She denies any definitive fever or chills. She has had some nausea and one episode of vomiting. She did states that her stools have been loose in nature. No other complaints or modifying factors. Workup in ED with EKG shows a sinus bradycardia at a rate of 57. There is no acute ST-T wave changes identified. The [place] intervals 166, QRS duration is 84, and the QTC intervals 412. The patient also had a laboratory analysis which shows a quite stable and slightly elevated hemoglobin. Her white blood cell count is slightly elevated. The computed tomography scan of the abdomen and pelvis was completed and does show evidence of diverticulitis with a small a bscess which appears similar to her computed tomography scan and 2019 when she was admitted to our hospital. IV Rocephin and IV Flagyl are started. 12/26/2020 Patient seen and evaluated with at bedside; patient and had multiple questions which were answered to the satisfaction Abdomen reporting episodes of bradycardia with heart rate dipping down in 30s w ith pauses; cardiology is consulted; patient remains on monitor; EKG done which reveals sinus bradycardia; echocardiogram is ordered and pending Levothyroxine has been increased based on TSH and free T4 results Patient remains on IV antibiotics for diverticulitis; surgery on board and plans for conservative treatment 12/27/2020 Patient is being followed for acute diverticulitis with peridiverticular abscess. Patient reports mild improvement in her pain each day. She rates her pain 4 out of 10. She is passing gas. She did have a bowel movement with no blood. She denies any nausea or vomiting. Headache improved. She is tolerating clear liquids. Afebrile. Patient has been bradycardic and had cardiac pauses. Patient was started on Synthroid for elevated TSH; patient has been evaluated by cardiology for asymptomatic bradycardia; patient's heart rate occasionally dipping down in 40s; cardiology following with plans for possible pacemaker placement if heart rate doesn't improve 12/28/2020 Patient is seen and evaluated at bedside for follow-up; continues to complaints of left-sided abdominal pain. On exam vital signs are stable. Abdomen soft. There is tenderness left lower quadrant Patient has been reevaluated by surgery and recommended repeat CAT scan of the abdomen and pelvis to evaluate her diverticulitis. Remains on IV antibiotics in form of IV Zosyn Objective - Vital Signs Vital signs: Vital Signs Temp 97.8 F 12/28/20 08:00 Pulse 47 L 12/28/20 08:00 Resp 18 12/28/20 08:00 BP 115/75 12/28/20 08:00 Pulse Ox 94 L 12/28/20 08:00 Intake & Output 12/27/20 12/28/20 12/28/20 18:59 06:59 18:59 Output Total 950 Balance -950 Output: Urine 950 Other: Voiding Method Toilet Toilet # Voids 2 # Bowel Movements 0 - Exam - Constitutional General appearance: Present: average body habitus, cooperative, no acute distress - EENT Eyes: Present: anicteric sclerae, EOMI, PERRLA, normal appearance ENT: Present: hearing grossly normal, normal oropharynx Ears: bilateral: normal - Neck Neck: Present: normal ROM. Absent: lymphadenopathy, rigidity, thyromegaly Carotids: negative: bruit present Thyroid: bilateral: normal size, negative: enlarged, nodule - Respiratory Respiratory: bilateral: CTA, negative: rales, rhonchi, wheezing - Cardiovascular Rhythm: regular Heart sounds: normal: S1, S2 Abnormal Heart Sounds: Absent: systolic murmur, diastolic murmur - Gastrointestinal General gastrointestinal: Present: normal bowel sounds, soft. Absent: distended, organomegaly, tenderness - Genitourinary Genitourinary Comment(s): deferred - Integumentary Integumentary: Present: normal turgor. Absent: jaundiced, rash, ulcer - Neurologic Neurologic: Present: CNII-XII intact. Absent: focal deficits - Musculoskeletal Musculoskeletal: Present: gait normal, strength equal bilaterally - Psychiatric Psychiatric: Present: A&O x's 3, appropriate affect, intact judgment & insight - Labs CBC & Chem 7: 12/28/20 12:34 12/28/20 12:34 Assessment and Plan Assessment: 1. Acute diverticulitis with peridiverticular abscess - Patient has been started on Zosyn 3.375 g IV every 8 hours; your management 2. Sinus bradycardia; we will order EKG and place on school bus monitor; check thyroid profile 3. Hypertension; continue with home dose of amlodipine 10 mg daily 4. Hyperlipidemia; patient takes Lipitor 10 mg daily 5. Migraine headaches; patient takes Topamax 50 mg twice a day and Maxalt 10 mg daily when necessary; we will start on home dose of Topamax and uses Imitrex when necessary 6. Asthma; not in exacerbation; continue with albuterol nebulizer treatments 4 times a day when necessary, Singulair 10 mg daily, Flonase nasal spray twice a day when necessary 7. Depression; Lexapro 20 mg daily at bedtime with trazodone 200 mg at at bedtime DVT prophylaxis; SCDs CODE STATUS; full code
--- NOTE | 2020-12-28 20:12 | P.PN ---
Subjective Sinus bradycardia This is a very pleasant 65-year-old female patient who was admitted to the hospital with abdominal discomfort and was diagnosed with acute diverticulitis with abscess formation. The patient was treated conservatively. We consulted to see the patient mainly because of sinus bradycardia. The patient was diagnosed with hypothyroidism which was subclinical and she was started on Synthroid. She was seen today. She was started on Synthroid 2 days ago. HR's have been in the 40's. The pressure has been within normal limits. She is not on any AV juan qiana agents. Echo showed EF 60-65%, trace MR. She does admit to occ asionally being symptomatic and lightheaded however none currently. Objective - Vital Signs Vital signs: Vital Signs Temp 97.4 F L 12/28/20 15:43 Pulse 44 L 12/28/20 15:43 Resp 16 12/28/20 15:43 BP 127/71 12/28/20 15:43 Pulse Ox 93 L 12/28/20 15:43 Intake & Output 12/28/20 12/28/20 12/29/20 06:59 18:59 06:59 Weight 76.204 kg Other: Voiding Method Toilet Toilet # Voids 2 4 # Bowel Movements 0 - Constitutional General appearance: Present: no acute distress, obese - Respiratory Respiratory: right: CTA, negative: rales, rhonchi - Cardiovascular Rhythm: regular Heart sounds: normal: S1, S2 - Gastrointestinal General gastrointestinal: Present: normal bowel sounds, tenderness - Psychiatric Psychiatric: Present: A&O x's 3 - Labs CBC & Chem 7: 12/28/20 12:34 12/28/20 12:34 Labs: Abnormal Lab Results - Last 24 Hours (Table) 12/28/20 Range/Units 12:34 Chloride 116 H (98-107) mmol/L Carbon Dioxide 18 L (22-30) mmol/L Glucose 116 H (74-99) mg/dL Assessment and Plan Assessment: Assessment #1 acute diverticulitis #2 sinus bradycardia #3 subclinical hypothyroidism #episodes of dizziness as an outpt. Unclear if related to bradycardic episodes. Plan #1 avoid any AV juan qiana agents #2 continue monitor the heart rate #3 Would recommend outpt event monitor to determine if lightheaded episodes truly correspond with bradycardic episodes. If patient is symptomatic from bradycardic episodes, may consider PPM. No further recommendations from cardiology standpoint. Patient may discharged from a cardiology standpoint with outpt followup in 1 week.
[2020-12-28] MEDS: ESCITALOPRAM 20 MG TAB PO SCH (22:07)
[2020-12-28] MEDS: traZODone HCL 100 MG TAB PO SCH (22:08)
[2020-12-29] MEDS: KETOROLAC 15 MG/ML 1 ML VIAL IVP SCH ×4 (00:09→17:35)
[2020-12-29] MEDS: PIPERACILLIN-TAZOBACTAM 3.375 GM in SODIUM CHLORIDE 0.9% 100 ML IVPB SCH ×3 (00:10→16:31)
[2020-12-29] MEDS: HYDROcodone/APAP 5-325MG 1 EACH TAB PO PRN ×2 (06:14→20:42)
[2020-12-29] MEDS: LEVOTHYROXINE 25 MCG TAB PO SCH (06:14)
[2020-12-29] MEDS: amLODIPine 10 MG TAB PO SCH (09:02)
[2020-12-29] MEDS: MONTELUKAST 10 MG TAB PO SCH (09:02)
[2020-12-29] MEDS: TOPIRAMATE 25 MG TAB PO SCH ×2 (09:02→20:41)
[2020-12-29] MEDS: DOCUSATE 100 MG CAP PO SCH ×2 (09:02→20:41)
[2020-12-29] MEDS: PANTOPRAZOLE 40 MG/10 ML VIAL IV SCH (09:02)
[2020-12-29] MEDS: HEPARIN SODIUM,PORCINE 5,000 UNIT/ML 1 ML VIAL SQ SCH ×2 (09:02→20:42)
[2020-12-29] MEDS: LORATADINE 10 MG TAB PO SCH (09:02)
[2020-12-29] MEDS: ATORVASTATIN 10 MG TAB PO SCH (09:03)
[2020-12-29 11:44] LABS: Basophils # (A) 0.04 X 10*3/uL (0.00-0.10); Basophils % (A) 0.6 %; Eosinophils # (A) 0.27 X 10*3/uL (0.04-0.35); Eosinophils % (A) 3.9 %; HCT 42.6 % (37.2-46.3); HGB 13.9 g/dL (12.0-15.0); Lymphocytes # (A) 1.96 X 10*3/uL (0.90-5.00); Lymphocytes % (A) 28.4 %; MCH 30.2 pg (27.0-32.0); MCHC 32.6 g/dL (32.0-37.0); MCV 92.4 fL (80.0-97.0); Mean Platelet Volume 11.1 fL (9.5-12.2); Monocytes # (A) 0.54 X 10*3/uL (0.20-1.00); Monocytes % (A) 7.8 %; Neutrophils # (A) 4.07 X 10*3/uL (1.80-7.70); Neutrophils % (A) 59.2 %; Platelet Count 212 X 10*3/uL (140-440); RBC 4.61 X 10*6/uL (4.10-5.20); WBC 6.89 X 10*3/uL (4.50-10.00)
[2020-12-29 12:39] LABS: African American GFR (CKD) 61.4 (60.0-200.0); Anion Gap 4.3 mmol/L (4.00-12.00); BUN/Creat Ratio 9.09 Ratio (12.00-20.00); Calcium 9.2 mg/dL (8.7-10.3); Carbon Dioxide 23.7 mmol/L (21.6-31.8); Potassium 3.8 mmol/L (3.5-5.5)
--- NOTE | 2020-12-29 17:08 | P.PN ---
Progress Note - Text Progress Note Date: 12/29/20 The patient still complaining of left-sided abdominal pain. Her CAT scan performed yesterday shows resolution of the abscess however she still has significant thickening of the sigmoid colon suggestive chronic diverticulitis. Discussion with the patient and her . We will continue IV antibiotic therapy. I did discuss patient that I would recommend surgical resection of her sigmoid colon due to chronic diverticulitis. Patient wishes continue IV antibiotics's point. She'll be observed closely.
--- NOTE | 2020-12-29 17:20 | P.PN ---
Subjective Progress Note Date: 12/29/20 Principal diagnosis: Acute diverticulitis with. Diverticular abscess Sinus bradycardia Hypothyroidism 65 old female presents with a complaint of some left lower quadrant abdominal pain. The onset occurred earlier today. She states that it is fairly severe in nature. It is been associated with several episodes of bright red bloody stools. She does have a history of previous diverticulitis and this feels somewhat similar. Her last episode was approximately 2 years ago and she apparently did have an intra-abdominal abscess at that time. She also has had flareups approximately every 5 years prior to this. She denies any definitive fever or chills. She has had some nausea and one episode of vomiting. She did states that her stools have been loose in nature. No other complaints or modifying factors. Workup in ED with EKG shows a sinus bradycardia at a rate of 57. There is no acute ST-T wave changes identified. The [place] intervals 166, QRS duration is 84, and the QTC intervals 412. The patient also had a laboratory analysis which shows a quite stable and slightly elevated hemoglobin. Her white blood cell count is slightly elevated. The computed tomography scan of the abdomen and pelvis was completed and does show evidence of diverticulitis with a small a bscess which appears similar to her computed tomography scan and 2019 when she was admitted to our hospital. IV Rocephin and IV Flagyl are started. 12/26/2020 Patient seen and evaluated with at bedside; patient and had multiple questions which were answered to the satisfaction Abdomen reporting episodes of bradycardia with heart rate dipping down in 30s w ith pauses; cardiology is consulted; patient remains on monitor; EKG done which reveals sinus bradycardia; echocardiogram is ordered and pending Levothyroxine has been increased based on TSH and free T4 results Patient remains on IV antibiotics for diverticulitis; surgery on board and plans for conservative treatment 12/27/2020 Patient is being followed for acute diverticulitis with peridiverticular abscess. Patient reports mild improvement in her pain each day. She rates her pain 4 out of 10. She is passing gas. She did have a bowel movement with no blood. She denies any nausea or vomiting. Headache improved. She is tolerating clear liquids. Afebrile. Patient has been bradycardic and had cardiac pauses. Patient was started on Synthroid for elevated TSH; patient has been evaluated by cardiology for asymptomatic bradycardia; patient's heart rate occasionally dipping down in 40s; cardiology following with plans for possible pacemaker placement if heart rate doesn't improve 12/28/2020 Patient is seen and evaluated at bedside for follow-up; continues to complaints of left-sided abdominal pain. On exam vital signs are stable. Abdomen soft. There is tenderness left lower quadrant Patient has been reevaluated by surgery and recommended repeat CAT scan of the abdomen and pelvis to evaluate her diverticulitis. Remains on IV antibiotics in form of IV Zosyn 12/29/2020 Patient continues to complain of left-sided abdominal pain; vital signs are reviewed and patient remains afebrile CTA of the abdomen done yesterday reveals resolution of the abscess with left nephrolithiasis; patient and requesting evaluation by urology Patient remains on IV antibiotic therapy; surgery recommending possibly surgical resection of sigmoid colon due to chronic diverticulitis; patient and family however want to continue with conservative treatment with IV antibiotics Objective - Vital Signs Vital signs: Vital Signs Temp 98.4 F 12/29/20 09:31 Pulse 54 L 12/29/20 09:31 Resp 15 12/29/20 09:31 BP 113/70 12/29/20 09:31 Pulse Ox 96 12/29/20 09:31 Intake & Output 12/28/20 12/29/20 12/29/20 18:59 06:59 18:59 Weight 76.204 kg Other: Voiding Method Toilet Toilet # Voids 4 3 - Exam - Constitutional General appearance: Present: average body habitus, cooperative, no acute distress - EENT Eyes: Present: anicteric sclerae, EOMI, PERRLA, normal appearance ENT: Present: hearing grossly normal, normal oropharynx Ears: bilateral: normal - Neck Neck: Present: normal ROM. Absent: lymphadenopathy, rigidity, thyromegaly Carotids: negative: bruit present Thyroid: bilateral: normal size, negative: enlarged, nodule - Respiratory Respiratory: bilateral: CTA, negative: rales, rhonchi, wheezing - Cardiovascular Rhythm: regular Heart sounds: normal: S1, S2 Abnormal Heart Sounds: Absent: systolic murmur, diastolic murmur - Gastrointestinal General gastrointestinal: Present: normal bowel sounds, soft. Absent: distended, organomegaly, tenderness - Genitourinary Genitourinary Comment(s): deferred - Integumentary Integumentary: Present: normal turgor. Absent: jaundiced, rash, ulcer - Neurologic Neurologic: Present: CNII-XII intact. Absent: focal deficits - Musculoskeletal Musculoskeletal: Present: gait normal, strength equal bilaterally - Psychiatric Psychiatric: Present: A&O x's 3, appropriate affect, intact judgment & insight - Labs CBC & Chem 7: 12/29/20 07:05 12/29/20 07:05 Labs: Abnormal Lab Results - Last 24 Hours (Table) 12/28/20 Range/Units 12:34 Chloride 116 H (98-107) mmol/L Carbon Dioxide 18 L (22-30) mmol/L Glucose 116 H (74-99) mg/dL Assessment and Plan Assessment: 1. Acute diverticulitis with peridiverticular abscess - Patient has been started on Zosyn 3.375 g IV every 8 hours; your management 2. Sinus bradycardia; we will order EKG and place on companion caregiver; check thyroid profile 3. Hypertension; continue with home dose of amlodipine 10 mg daily 4. Hyperlipidemia; patient takes Lipitor 10 mg daily 5. Migraine headaches; patient takes Topamax 50 mg twice a day and Maxalt 10 mg daily when necessary; we will start on home dose of Topamax and uses Imitrex when necessary 6. Asthma; not in exacerbation; continue with albuterol nebulizer treatments 4 times a day when necessary, Singulair 10 mg daily, Flonase nasal spray twice a day when necessary 7. Depression; Lexapro 20 mg daily at bedtime with trazodone 200 mg at at bedt juanjo DVT prophylaxis; SCDs CODE STATUS; full code
[2020-12-29] MEDS: HYDROmorphone 1 MG/ML 1 ML SYRINGE IVP PRN (17:39)
[2020-12-29] MEDS: traZODone HCL 100 MG TAB PO SCH (20:41)
[2020-12-29] MEDS: ESCITALOPRAM 20 MG TAB PO SCH (20:41)
--- NOTE | 2020-12-29 20:43 | P.GSCN ---
History of Present Illness Consult date: 12/29/20 Reason for Consult: Left renal calculi Requesting physician: Anel Mir History of present illness: CT scan shows a peridiverticular abscess adjacent to the sigmoid colon. The CT scan also shows for left lower pole renal calculi, the largest of which measures approximately 8 mm in size. There is no hydronephrosis. The patient has a history of kidney stones. She states that she underwent a procedure in [address] Reid for removal of a kidney stone. She is unclear whether this was ureteroscopy or ESWL, but likely the former. She currently denies flank pain. Review of Systems - Constitutional Denies chills, Denies fever - Genitourinary Genitourinary: Reports kidney stones, Denies flank pain, Denies hematuria Past Medical History Past Medical History: Asthma, GERD/Reflux, GI Bleed, Hyperlipidemia, Hypertension Additional Past Medical History / Comment(s): blood in stool past, diarrhea,vertigo, kidney stones, diverticulitis History of Any Multi-Drug Resistant Organisms: None Reported Past Surgical History: Section Past Anesthesia/Blood Transfusion Reactions: No Reported Reaction Past Psychological History: No Psychological Hx Reported Smoking Status: Never smoker Past Alcohol Use History: Occasional Additional Past Alcohol Use History / Comment(s): quit smoking 40 yrs. ago, smoked <ppd for 10 yrs Past Drug Use History: None Reported - Past Family History Father Family Medical History: Cancer Additional Family Medical History / Comment(s): lung, aortic aneursym Mother Family Medical History: Dementia Medications and Allergies Home Medications Medication Instructions Recorded Confirmed Type Atorvastatin [Lipitor] 10 mg PO DAILY 08/19/18 12/23/20 History Escitalopram [Lexapro] 20 mg PO HS 08/19/18 12/23/20 History Montelukast Sodium [Singulair] 10 mg PO DAILY 08/19/18 12/23/20 History amLODIPine [Norvasc] 10 mg PO DAILY 08/19/18 12/23/20 History traZODone HCL 200 mg PO HS 08/19/18 12/23/20 History Albuterol Sulfate [Proair Hfa] 1 - 2 puff INHALATION RT-QID PRN 12/23/20 12/23/20 History Fluticasone Nasal [place] [Flonase 1 - 2 spr EA NOSTRIL DAILY PRN 12/23/20 12/23/20 History Nasal [place]] Loratadine 10 mg PO DAILY 12/23/20 12/23/20 History Omeprazole 20 mg PO DAILY 12/23/20 12/23/20 History Rizatriptan Benzoate [Maxalt] 10 mg PO DAILY PRN 12/23/20 12/23/20 History Topiramate [Topamax] 50 mg PO BID 12/23/20 12/23/20 History Allergies Allergy/AdvReac Type Severity Reaction Status Date / Time No Known Allergies Allergy Verified 12/23/20 20:58 Surgical - Exam Vital Signs Temp Pulse Resp BP Pulse Ox 98.5 F 57 L 18 160/85 95 12/23/20 18:10 12/23/20 18:10 12/23/20 18:10 12/23/20 18:10 12/23/20 18:10 - General well developed, well nourished, no distress - Neck no masses, trachea midline - Respiratory normal respiratory effort - Abdomen Abdomen: soft, tender (Mild left-sided tenderness to palpation), no masses, no distended - Psychiatric oriented to time, oriented to person, oriented to place, speech is normal, memory intact Results - Labs 12/29/20 07:05 12/29/20 07:05 Abnormal Lab Results - Last 24 Hours (Table) 12/29/20 Range/Units 07:05 Sodium 146 H (135-145) mmol/L Chloride 118 H (96-109) mmol/L Est GFR (CKD-EPI)NonAf 53.0 L (60.0-200.0) BUN/Creatinine Ratio 9.09 L (12.00-20.00) Ratio Glucose 114 H (70-110) mg/dL Diabetes panel 12/29/20 Range/Units 07:05 Sodium 146 H (135-145) mmol/L Potassium 3.8 (3.5-5.5) mmol/L Chloride 118 H (96-109) mmol/L Carbon Dioxide 23.7 (21.6-31.8) mmol/L BUN 10.0 (9.0-27.0) mg/dL Creatinine 1.1 (0.6-1.5) mg/dL Glucose 114 H (70-110) mg/dL Calcium 9.2 (8.7-10.3) mg/dL Calcium panel 12/29/20 Range/Units 07:05 Calcium 9.2 (8.7-10.3) mg/dL Pituitary panel 12/29/20 Range/Units 07:05 Sodium 146 H (135-145) mmol/L Potassium 3.8 (3.5-5.5) mmol/L Chloride 118 H (96-109) mmol/L Carbon Dioxide 23.7 (21.6-31.8) mmol/L BUN 10.0 (9.0-27.0) mg/dL Creatinine 1.1 (0.6-1.5) mg/dL Glucose 114 H (70-110) mg/dL Calcium 9.2 (8.7-10.3) mg/dL Adrenal panel 12/29/20 Range/Units 07:05 Sodium 146 H (135-145) mmol/L Potassium 3.8 (3.5-5.5) mmol/L Chloride 118 H (96-109) mmol/L Carbon Dioxide 23.7 (21.6-31.8) mmol/L BUN 10.0 (9.0-27.0) mg/dL Creatinine 1.1 (0.6-1.5) mg/dL Glucose 114 H (70-110) mg/dL Calcium 9.2 (8.7-10.3) mg/dL - Imaging CT scan - abdomen: report reviewed, image reviewed Assessment and Plan (1) Calculus of kidney Current Visit: Yes Status: Acute Code(s): N20.0 - CALCULUS OF KIDNEY SNOMED Code(s): 17053307 Plan: I had a lengthy discussion with the patient regarding her kidney stones. I do not believe that they are contributing to her current symptomatology. She has been advised to undergo a sigmoid colon resection for her diverticulitis. I suggested she follow up with Dr. Reid upon discharge to discuss treatment options for removal of her left renal calculi, namely ureteroscopy or ESWL. She may also benefit from a metabolic evaluation to determine the cause of her recurrent urolithiasis. Please notify us if we can be of any further assistance during this hospitalization. Time with Patient: Greater than 30
[2020-12-30] MEDS: PIPERACILLIN-TAZOBACTAM 3.375 GM in SODIUM CHLORIDE 0.9% 100 ML IVPB SCH ×4 (00:33→23:32)
[2020-12-30] MEDS: KETOROLAC 15 MG/ML 1 ML VIAL IVP SCH ×3 (00:33→12:54)
[2020-12-30] MEDS: HYDROcodone/APAP 5-325MG 1 EACH TAB PO PRN ×3 (00:50→20:29)
[2020-12-30] MEDS: LEVOTHYROXINE 25 MCG TAB PO SCH (05:49)
[2020-12-30] MEDS: HYDROmorphone 1 MG/ML 1 ML SYRINGE IVP PRN ×2 (05:49→17:11)
[2020-12-30] MEDS: TOPIRAMATE 25 MG TAB PO SCH ×2 (08:25→20:29)
[2020-12-30] MEDS: ATORVASTATIN 10 MG TAB PO SCH (08:25)
[2020-12-30] MEDS: HEPARIN SODIUM,PORCINE 5,000 UNIT/ML 1 ML VIAL SQ SCH ×2 (08:25→20:28)
[2020-12-30] MEDS: LORATADINE 10 MG TAB PO SCH (08:26)
[2020-12-30] MEDS: PANTOPRAZOLE 40 MG/10 ML VIAL IV SCH (08:26)
[2020-12-30] MEDS: MONTELUKAST 10 MG TAB PO SCH (08:26)
[2020-12-30] MEDS: amLODIPine 10 MG TAB PO SCH (08:26)
[2020-12-30] MEDS: DOCUSATE 100 MG CAP PO SCH ×2 (08:26→20:28)
--- NOTE | 2020-12-30 12:40 | P.CONS ---
History of Present Illness - Reason for Consult Consult date: 12/30/20 - History of Present Illness HISTORY OF PRESENT ILLNESS This is a 65-year-old female patient admitted on December 23 for left lower quadrant pain. Patient states that this started after she ate spicy foods and she had a previous episode in July 2019. She states when she presented her pain was a #10 and currently at a #5 without medication. She states the pain is started 1 day prior to her admission. She has had nausea that has resolved. She also states she had bright red rectal bleeding that is stopped. She denies having any fever or chills. She is related that she does not want to undergo surgical intervention. ID consultation regarding IV antibiotic treatment, conservative treatment outpatient. CAT scan of the abdomen and pelvis done on December 28 reveals nonobstructive left nephrolithiasis. Indeterminate colonic wall thickening, correlate for colitis, there is diverticulosis. Possible lung nodularity costophrenic sulci. Patient is currently on Zosyn. She has been afebrile, heart rate in the 40s, blood pressure 123/75, pulse ox 94% on room air. Leukocytosis has resolved. Creatinine 1.1. Pro-calcitonin 0.02. C- reactive protein less than 5. Coronavirus PCR not detected. Midline has been ordered. REVIEW OF SYSTEMS Constitutional: No fever, no chills, no night sweats. No weight change. No weakness, fatigue or lethargy. EENT: No headache. No nasal drainage or congestion. No epistaxis. No sore throat. Lungs: No shortness of breath, cough, no sputum production. No wheezing. Cardiovascular: No chest pain, no lower extremity edema. No lightheadedness or dizziness. No syncopal episodes. Abdominal: Reports abdominal pain. No nausea, vomiting. No diarrhea. No constipation. No loss of appetite. Genitourinary: No dysuria, increased frequency, urgency. No urinary retention. Musculoskeletal: No myalgias. No muscle weakness. Integumentary: No wounds, no lesions. No rash or pruritus. Neurologic: No aphasia. No facial droop. No change in mentation. Endocrine: No abnormal blood sugars. PHYSICAL EXAMINATION Gen: This is a 65-year-old female. Patient is resting bed appears to be comfortable. HEENT: Head is atraumatic, normocephalic. Pupils equal, round. Sclerae is anicteric. NECK: Supple. No JVD. No lymphadenopathy. No thyromegaly. LUNGS: Clear to auscultation. No wheezes or rhonchi. No intercostal retractions. HEART: Regular rate and rhythm. ABDOMEN: Soft. No masses. No tenderness. EXTREMITIES: No pedal edema. No calf tenderness. NEUROLOGICAL: Patient is awake, alert and oriented x3. Cranial nerves 2 through 12 are grossly intact. ASSESSMENT Acute diverticulitis with peridiverticular abscess PLAN Midline has been ordered Plan for Zosyn 10 days as outpatient, prescription provided to director of casework department Further recommendations as patient progresses. Thank you kindly for this consultation. The above dictated assessment and findings were discussed with Dr. Bernard. The impression and plan of care have been directed as dictated. Cindy Pelletier nurse practitioner acting as scribe for Dr. Bernard. Past Medical History Past Medical History: Asthma, GERD/Reflux, GI Bleed, Hyperlipidemia, Hypertension Additional Past Medical History / Comment(s): blood in stool past, diarrhea, vertigo, kidney stones, diverticulitis History of Any Multi-Drug Resistant Organisms: None Reported Past Surgical History: Section Past Anesthesia/Blood Transfusion Reactions: No Reported Reaction Past Psychological History: No Psychological Hx Reported Smoking Status: Never smoker Past Alcohol Use History: Occasional Additional Past Alcohol Use History / Comment(s): quit smoking 40 yrs. ago, smoked <ppd for 10 yrs Past Drug Use History: None Reported - Past Family History Father Family Medical History: Cancer Additional Family Medical History / Comment(s): lung, aortic aneursym Mother Family Medical History: Dementia Medications and Allergies Home Medications Medication Instructions Recorded Confirmed Type Atorvastatin [Lipitor] 10 mg PO DAILY 08/19/18 12/23/20 History Escitalopram [Lexapro] 20 mg PO HS 08/19/18 12/23/20 History Montelukast Sodium [Singulair] 10 mg PO DAILY 08/19/18 12/23/20 History amLODIPine [Norvasc] 10 mg PO DAILY 08/19/18 12/23/20 History traZODone HCL 200 mg PO HS 08/19/18 12/23/20 History Albuterol Sulfate [Proair Hfa] 1 - 2 puff INHALATION RT-QID PRN 12/23/20 12/23/20 History Fluticasone Nasal [place] [Flonase 1 - 2 spr EA NOSTRIL DAILY PRN 12/23/20 12/23/20 History Nasal [place]] Loratadine 10 mg PO DAILY 12/23/20 12/23/20 History Omeprazole 20 mg PO DAILY 12/23/20 12/23/20 History Rizatriptan Benzoate [Maxalt] 10 mg PO DAILY PRN 12/23/20 12/23/20 History Topiramate [Topamax] 50 mg PO BID 12/23/20 12/23/20 History Allergies Allergy/AdvReac Type Severity Reaction Status Date / Time No Known Allergies Allergy Verified 12/23/20 20:58 Physical Exam Vitals: Vital Signs Temp Pulse Pulse Resp BP Pulse Ox 12/30/20 08:00 97.7 F 45 L 16 123/75 94 L 12/30/20 02:00 97.9 F 38 L 16 109/65 95 12/29/20 20:00 98.0 F 48 L 16 138/80 95 12/29/20 19:00 16 Intake and Output 12/29/20 12/30/20 12/30/20 22:59 06:59 14:59 Intake Total 100 Balance 100 Intake: Oral 100 Other: Voiding Method Toilet # Voids 4 1 # Bowel Movements 2 0 Results CBC & Chem 7: 12/29/20 07:05 12/29/20 07:05 Labs: Abnormal Lab Results - Last 24 Hours (Table) 12/29/20 Range/Units 07:05 Sodium 146 H (135-145) mmol/L Chloride 118 H (96-109) mmol/L Est GFR (CKD-EPI)NonAf 53.0 L (60.0-200.0) BUN/Creatinine Ratio 9.09 L (12.00-20.00) Ratio Glucose 114 H (70-110) mg/dL
--- NOTE | 2020-12-30 12:52 | P.PN ---
Subjective Progress Note Date: 12/30/20 CHIEF COMPLAINT: Left lower quadrant abdominal pain HISTORY OF PRESENT ILLNESS: Patient seen and examined with Dr. vogel. Patient is being followed for acute diverticulitis with peridiverticular absces s. Patient still complaining of left lower quadrant abdominal pain. She is requiring IV pain medication. She is on a full liquid diet. Cardiology is following in regards to her bradycardia and recommend event monitor in the outpatient setting. Cardiology has signed off. Patient is afebrile. Computed tomography scan had shown resolution of the abscess but still has significant thickening of the sigmoid colon suggestive of chronic diverticulitis per Dr. Vogel. PHYSICAL EXAM: VITAL SIGNS: Reviewed. GENERAL: Well-developed in no acute distress. HEENT: No sclera icterus. Extraocular movements grossly intact. Moist buccal mucosa. Head is atraumatic, normocephalic. ABDOMEN: Soft. Nondistended. Left lower quadrant tenderness NEUROLOGIC: Alert and oriented. Cranial nerves II through XII grossly intact. ASSESSMENT: 1. Acute diverticulitis with peridiverticular abscess posterior to the proximal sigmoid colon PLAN: -Dr. Vogel did discuss with the patient surgical options. At this time patient would like to proceed with conservative treatment. -Consult infectious disease for antibiotic recommendations -Ordered midline for outpatient antibiotics -Continue full liquid diet -Continue antibiotics -Continue pain medication as needed -GI prophylaxis Protonix -DVT prophylaxis SC heparin Physician Test And Turn Up Technician note has been reviewed by physician. Signing provider agrees with the documented findings, assessment, and plan of care. Objective - Vital Signs Vital signs: Vital Signs Temp 97.7 F 12/30/20 08:00 Pulse 38 L 12/30/20 08:00 Resp 16 12/30/20 08:00 BP 123/75 12/30/20 08:00 Pulse Ox 94 L 12/30/20 08:00 Intake & Output 12/29/20 12/30/20 12/30/20 18:59 06:59 18:59 Intake Total 100 Balance 100 Intake: Oral 100 Other: Voiding Method Toilet Toilet # Voids 4 1 # Bowel Movements 2 0 - Labs CBC & Chem 7: 12/29/20 07:05 12/29/20 07:05
--- NOTE | 2020-12-30 16:37 | P.PN ---
Subjective 65 old female presents with a complaint of some left lower quadrant abdominal pain. The onset occurred earlier today. She states that it is fairly severe in nature. It is been associated with several episodes of bright red bloody stools. She does have a history of previous diverticulitis and this feels somewhat similar. Her last episode was approximately 2 years ago and she apparently did have an intra-abdominal abscess at that time. She also has had flareups approximately every 5 years prior to this. She denies any definitive fever or chills. She has had some nausea and one episode of vomiting. She did states that her stools have been loose in nature. No other complaints or modifying factors. Workup in ED with EKG shows a sinus bradycardia at a rate of 57. There is no acute ST-T wave changes identified. The [place] intervals 166, QRS duration is 84, and the QTC intervals 412. The patient also had a laboratory analysis which sh ows a quite stable and slightly elevated hemoglobin. Her white blood cell count is slightly elevated. The computed tomography scan of the abdomen and pelvis was completed and does show evidence of diverticulitis with a small abscess which appears similar to her computed tomography scan and 2019 when she was admitted to our hospital. IV Rocephin and IV Flagyl are started. 12/26/2020 Patient seen and evaluated with at bedside; patient and had multiple questions which were answered to the satisfaction Abdomen reporting episodes of bradycardia with heart rate dipping down in 30s with pauses; cardiology is consulted; patient remains on monitor; EKG done which reveals sinus bradycardia; echocardiogram is ordered and pending Levothyroxine has been increased based on TSH and free T4 results Patient remains on IV antibiotics for diverticulitis; surgery on board and plans for conservative treatment 12/27/2020 Patient is being followed for acute diverticulitis with peridiverticular abscess. Patient reports mild improvement in her pain each day. She rates her pain 4 out of 10. She is passing gas. She did have a bowel movement with no blood. She denies any nausea or vomiting. Headache improved. She is tolerating clear liquids. Afebrile. Patient has been bradycardic and had cardiac pauses. Patient was started on Synthroid for elevated TSH; patient has been evaluated by cardiology for asymptomatic bradycardia; patient's heart rate occasionally dipping down in 40s; cardiology following with plans for possible pacemaker placement if heart rate doesn't improve 12/28/2020 Patient is seen and evaluated at bedside for follow-up; continues to complaints of left-sided abdominal pain. On exam vital signs are stable. Abdomen soft. There is tenderness left lower quadrant Patient has been reevaluated by surgery and recommended repeat CAT scan of the abdomen and pelvis to evaluate her diverticulitis. Remains on IV antibiotics in form of IV Zosyn 12/29/2020 Patient continues to complain of left-sided abdominal pain; vital signs are reviewed and patient remains afebrile CTA of the abdomen done yesterday reveals resolution of the abscess with left nephrolithiasis; patient and requesting evaluation by urology Patient remains on IV antibiotic therapy; surgery recommending possibly surgical resection of sigmoid colon due to chronic diverticulitis; patient and family however want to continue with conservative treatment with IV antibiotics 12/30/2020 Considering her bradycardia recommended to discontinue her denies patient doesn't want to discontinue that I started her back on medication. Patient was evaluated by infectious disease and probably will be discharged with a PICC line and IV antibiotics. Constitutional: Denied any fatigue denied any fever. Cardio vascular: denied any chest pain, palpitations Gastrointestinal continues to complain of abdominal pain Pulmonary: Denied any shortness of breath cough Neurologic denied any new focal deficits All inpatient medications were reviewed and appropriate changes in these medications as dictated in the interval history and assessment and plan. Objective - Vital Signs Vital signs: Vital Signs Temp 98.1 F 12/30/20 14:52 Pulse 58 L 12/30/20 14:52 Resp 20 12/30/20 14:52 BP 119/76 12/30/20 14:52 Pulse Ox 94 L 12/30/20 14:52 Intake & Output 12/29/20 12/30/20 12/30/20 18:59 06:59 18:59 Intake Total 100 Balance 100 Weight 76.204 kg Intake: Oral 100 Other: Voiding Method Toilet Toilet # Voids 4 1 # Bowel Movements 2 0 - Exam PHYSICAL EXAMINATION: GENERAL: The patient is alert and oriented x3, not in any acute distress. Well developed, well nourished. HEENT: Pupils are round and equally reacting to light. EOMI. No scleral icterus. No conjunctival pallor. Normocephalic, atraumatic. No pharyngeal erythema. No thyromegaly. CARDIOVASCULAR: S1 and S2 present. No murmurs, rubs, or gallops. PULMONARY: Chest is clear to auscultation, no wheezing or crackles. ABDOMEN: Soft, nontender, nondistended, normoactive bowel sounds. No palpable organomegaly. MUSCULOSKELETAL: No joint swelling or deformity. EXTREMITIES: No cyanosis, clubbing, or pedal edema. NEUROLOGICAL: Gross neurological examination did not reveal any focal deficits. SKIN: No rashes. - Labs CBC & Chem 7: 12/29/20 07:05 12/29/20 07:05 Assessment and Plan Plan: 1. Acute diverticulitis with peridiverticular abscess - Patient has been started on Zosyn 3.375 g IV every 8 hours; patient will be discharged with a PICC line and antibiotics 2. Sinus bradycardia; we will order EKG and place on radiation monitor; TSH was elevated T4 is within normal limits patient was started on low-dose of levothyro xine at a recommended her to discontinue loratadine which has anticholinergic properties low patient is not willing to do that. 3. Hypertension; down the dose of amlodipine as patient blood pressure is occasionally low 4. Hyperlipidemia; patient takes Lipitor 10 mg daily 5. Migraine headaches; patient takes Topamax 50 mg twice a day and Maxalt 10 mg daily when necessary; we will start on home dose of Topamax and uses Imitrex when necessary 6. Asthma; not in exacerbation; continue with albuterol nebulizer treatments 4 times a day when necessary, Singulair 10 mg daily, Flonase nasal spray twice a day when necessary 7. Depression; Lexapro 20 mg daily at bedtime with trazodone 200 mg at at bedtime
[2020-12-30] MEDS: ESCITALOPRAM 20 MG TAB PO SCH (20:28)
[2020-12-30] MEDS: traZODone HCL 100 MG TAB PO SCH (20:29)
[2020-12-31] MEDS: SUMAtriptan succinate 50 MG TAB PO PRN (00:03)
[2020-12-31] MEDS: LEVOTHYROXINE 25 MCG TAB PO SCH (05:40)
[2020-12-31] MEDS: TOPIRAMATE 25 MG TAB PO SCH ×2 (08:26→22:15)
[2020-12-31] MEDS: HEPARIN SODIUM,PORCINE 5,000 UNIT/ML 1 ML VIAL SQ SCH ×2 (08:26→22:15)
[2020-12-31] MEDS: MONTELUKAST 10 MG TAB PO SCH (08:26)
[2020-12-31] MEDS: ATORVASTATIN 10 MG TAB PO SCH (08:26)
[2020-12-31] MEDS: amLODIPine 5 MG TAB PO SCH (08:26)
[2020-12-31] MEDS: PANTOPRAZOLE 40 MG TABLET PO SCH (08:26)
[2020-12-31] MEDS: LORATADINE 10 MG TAB PO SCH (08:26)
[2020-12-31] MEDS: DOCUSATE 100 MG CAP PO SCH ×2 (08:26→22:15)
[2020-12-31] MEDS: PIPERACILLIN-TAZOBACTAM 3.375 GM in SODIUM CHLORIDE 0.9% 100 ML IVPB SCH ×2 (08:27→16:21)
[2020-12-31] MEDS: HYDROcodone/APAP 5-325MG 1 EACH TAB PO PRN ×3 (08:27→16:21)
[2020-12-31 09:02] LABS: Appearance,Urine Clear (Clear); Bilirubin,Urine Negative (Negative); Blood,Urine Negative (Negative); Color,Urine Light Yellow; Glucose,Urine (UA) Negative (Negative); Ketones,Urine Negative (Negative); Leukocyte Esterase,Urine Small (Negative); Mucus,Urine Rare /hpf; Nitrite,Urine Negative (Negative); PH, Urine 7.5 (5.0-8.0); Protein,Urine Negative (Negative); RBC,Urine 1 /hpf (0-5); Specific Gravity,Urine 1.007 (1.001-1.035); Urobilinogen,Urine <2.0 mg/dL (<2.0); WBC,Urine 4 /hpf (0-5)
--- NOTE | 2020-12-31 11:30 | P.PN ---
Subjective Progress Note Date: 12/31/20 65 old female presents with a complaint of some left lower quadrant abdominal pain. The onset occurred earlier today. She states that it is fairly severe in nature. It is been associated with several episodes of bright red bloody stools. She does have a history of previous diverticulitis and this feels somewhat similar. Her last episode was approximately 2 years ago and she apparently did have an intra-abdominal abscess at that time. She also has had flareups approximately every 5 years prior to this. She denies any definitive fever or chills. She has had some nausea and one episode of vomiting. She did states that her stools have been loose in nature. No other complaints or modifying factors. Workup in ED with EKG shows a sinus bradycardia at a rate of 57. There is no acute ST-T wave changes identified. The ND intervals 166, QRS duration is 84, and the QTC intervals 412. The patient also had a laboratory analysis which shows a quite stable and slightly elevated hemoglobin. Her white blood cell count is slightly elevated. The computed tomography scan of the abdomen and pelvis was completed and does show evidence of diverticulitis with a small abscess which appears similar to her computed tomography scan and 2019 when she was admitted to our hospital. IV Rocephin and IV Flagyl are started. 12/26/2020 Patient seen and evaluated with at bedside; patient and had multiple questions which were answered to the satisfaction Abdomen reporting episodes of bradycardia with heart rate dipping down in 30s with pauses; cardiology is consulted; patient remains on monitor; EKG done which reveals sinus bradycardia; echocardiogram is ordered and pending Levothyroxine has been increased based on TSH and free T4 results Patient remains on IV antibiotics for diverticulitis; surgery on board and plans for conservative treatment 12/27/2020 Patient is being followed for acute diverticulitis with peridiverticular a bscess. Patient reports mild improvement in her pain each day. She rates her pain 4 out of 10. She is passing gas. She did have a bowel movement with no blood. She denies any nausea or vomiting. Headache improved. She is tolerating clear liquids. Afebrile. Patient has been bradycardic and had cardiac pauses. Patient was started on Synthroid for elevated TSH; patient has been evaluated by cardiology for asymptomatic bradycardia; patient's heart rate occasionally dipping down in 40s; cardiology following with plans for possible pacemaker placement if heart rate doesn't improve 12/28/2020 Patient is seen and evaluated at bedside for follow-up; continues to complaints of left-sided abdominal pain. On exam vital signs are stable. Abdomen soft. There is tenderness left lower quadrant Patient has been reevaluated by surgery and recommended repeat CAT scan of the abdomen and pelvis to evaluate her diverticulitis. Remains on IV antibiotics in form of IV Zosyn 12/29/2020 Patient continues to complain of left-sided abdominal pain; vital signs are reviewed and patient remains afebrile CTA of the abdomen done yesterday reveals resolution of the abscess with left nephrolithiasis; patient and requesting evaluation by urology Patient remains on IV antibiotic therapy; surgery recommending possibly surgical resection of sigmoid colon due to chronic diverticulitis; patient and family however want to continue with conservative treatment with IV antibiotics 12/30/2020 Considering her bradycardia recommended to discontinue her denies patient doesn't want to discontinue that I started her back on medication. Patient was evaluated by infectious disease and probably will be discharged with a PICC line and IV antibiotics. 12/31/2020 Patient seen on follow-up, has PICC line in place for continuation of IV antibiotics. Remains bradycardic heart rate in 40s, patient not willing to hold off on antihistamine which was recommended is that his anticholinergic. No fevers overnight, blood pressure stable. Constitutional: Denied any fatigue denied any fever. Cardio vascular: denied any chest pain, palpitations Gastrointestinal continues to complain of abdominal pain Pulmonary: Denied any shortness of breath cough Neurologic denied any new focal deficits All inpatient medications were reviewed and appropriate changes in these medications as dictated in the interval history and assessment and plan. Objective - Vital Signs Vital signs: Vital Signs Temp 98.1 F 12/31/20 07:27 Pulse 48 L 12/31/20 08:34 Resp 20 12/31/20 07:27 BP 140/71 12/31/20 07:27 Pulse Ox 94 L 12/31/20 07:27 Intake & Output 12/30/20 12/31/20 12/31/20 18:59 06:59 18:59 Intake Total 236 640 Balance 236 640 Weight 76.204 kg Intake: IV 100 Piperacillin-Tazobactam 3 100 .375 gm In Sodium Chloride 0.9% 100 ml @ 25 mls/hr IVPB Q8HR [facility] Rx# :[id number] Oral 236 540 Other: Voiding Method Toilet Toilet Toilet # Voids 2 2 1 - Exam PHYSICAL EXAMINATION: GENERAL: The patient is alert and oriented x3, not in any acute distress. Well developed, well nourished. HEENT: Pupils are round and equally reacting to light. EOMI. No scleral icterus. No conjunctival pallor. Normocephalic, atraumatic. No pharyngeal erythema. No thyromegaly. CARDIOVASCULAR: S1 and S2 present. No murmurs, rubs, or gallops. PULMONARY: Chest is clear to auscultation, no wheezing or crackles. ABDOMEN: Soft, nontender, nondistended, normoactive bowel sounds. No palpable organomegaly. MUSCULOSKELETAL: No joint swelling or deformity. EXTREMITIES: No cyanosis, clubbing, or pedal edema. NEUROLOGICAL: Gross neurological examination did not reveal any focal deficits. SKIN: No rashes. - Labs CBC & Chem 7: 12/29/20 07:05 12/29/20 07:05 Labs: Abnormal Lab Results - Last 24 Hours (Table) 12/31/20 Range/Units 08:40 Ur Leukocyte Esterase Small H (Negative) Urine Mucus Rare H (None) /hpf Assessment and Plan Assessment: Plan: 1. Acute diverticulitis with peridiverticular abscess - Patient has been started on Zosyn 3.375 g IV every 8 hours; PICC line in place, patient to be discharged home on IV antibiotics per infectious disease 2. Sinus bradycardia; we will order EKG and place on laboratory monitor; TSH was elevated T4 is within normal limits patient was started on low-dose of levothyroxine at a recommended her to discontinue loratadine which has anticholinergic properties low patient is not willing to do that. 3. Hypertension; down the dose of amlodipine as patient blood pressure is occasionally low 4. Hyperlipidemia; patient takes Lipitor 10 mg daily 5. Migraine headaches; patient takes Topamax 50 mg twice a day and Maxalt 10 mg daily when necessary; we will start on home dose of Topamax and uses Imitrex when necessary 6. Asthma; not in exacerbation; continue with albuterol nebulizer treatments 4 times a day when necessary, Singulair 10 mg daily, Flonase nasal spray twice a day when necessary 7. Depression; Lexapro 20 mg daily at bedtime with trazodone 200 mg at at bedtime
--- NOTE | 2020-12-31 14:08 | P.PN ---
Subjective Progress Note Date: 12/31/20 CHIEF COMPLAINT: Left lower quadrant abdominal pain HISTORY OF PRESENT ILLNESS: Patient seen and examined with Dr. Sevilla. Patient is being followed for acute diverticulitis with peridiverticular absces s. Patient still complaining of left lower quadrant abdominal pain, but her pain continues to decrease. She rates her pain about a 3 out of 10. She does report having bowel movements. She is passing gas. Denies any blood in the stool. Denies any nausea or vomiting. She did have a heart rate down to 28 and will be reevaluated by cardiology. She has her midline in place. security manager is working on insurance authorization for outpatient antibiotics in the form of Zosyn. She's currently on full liquids. Afebrile. PHYSICAL EXAM: VITAL SIGNS: Reviewed. GENERAL: Well-developed in no acute distress. HEENT: No sclera icterus. Extraocular movements grossly intact. Moist buccal mucosa. Head is atraumatic, normocephalic. ABDOMEN: Soft. Nondistended. Left lower quadrant tenderness NEUROLOGIC: Alert and oriented. Cranial nerves II through XII grossly intact. ASSESSMENT: 1. Acute diverticulitis with peridiverticular abscess posterior to the proximal sigmoid colon PLAN: -Dr. Sevilla did discuss with the patient surgical options. At this time patient would like to proceed with conservative treatment. -Awaiting antibiotic authorization -Consult cardiology regarding bradycardia -Continue full liquid diet -Continue antibiotics -Continue pain medication as needed -GI prophylaxis Protonix -DVT prophylaxis SC heparin Physician Book Sorter note has been reviewed by physician. Signing provider agrees with the documented findings, assessment, and plan of care. Objective - Vital Signs Vital signs: Vital Signs Temp 98.1 F 12/31/20 07:27 Pulse 48 L 12/31/20 08:34 Resp 20 12/31/20 07:27 BP 140/71 12/31/20 07:27 Pulse Ox 94 L 12/31/20 07:27 Intake & Output 12/30/20 12/31/20 12/31/20 18:59 06:59 18:59 Intake Total 236 640 Balance 236 640 Weight 76.204 kg Intake: IV 100 Piperacillin-Tazobactam 3 100 .375 gm In Sodium Chloride 0.9% 100 ml @ 25 mls/hr IVPB Q8HR [facility] Rx# :[id number] Oral 236 540 Other: Voiding Method Toilet Toilet Toilet # Voids 2 2 1 - Labs CBC & Chem 7: 12/29/20 07:05 12/29/20 07:05 Labs: Abnormal Lab Results - Last 24 Hours (Table) 12/31/20 Range/Units 08:40 Ur Leukocyte Esterase Small H (Negative) Urine Mucus Rare H (None) /hpf
--- NOTE | 2020-12-31 14:51 | P.PN ---
Subjective This is a pleasant 65-year-old female past medical history significant for hypertension, asthma and former nicotine dependence. She does not follow regularly with a director transportation. She is currently being treated for acute diverticulitis with abscess formation. She is maintained on IV antibiotics. We have been asked to see the patient again during this hospitalization for ongoing bradycardia. She is seen and examined sitting up in the recliner chair in no acute distress. She denies symptoms of dizziness, palpitations, shortness of breath, near syncope, syncope or chest pain. She states at times she does feel lightheaded, the last time being a few weeks ago. None during this hospital admission. Blood pressure 140/71. Telemetry tracings indicate sinus bradycardia with sinus pauses. These occur mostly while she asleep. She is asymptomatic. Telemetry tracings during the day reveals sinus bradycardia with no pauses. GENERAL: Well-appearing, well-nourished and in no acute distress. NECK: Supple without JVD or thyromegaly. LUNGS: Breath sounds clear to auscultation bilaterally. Respiration equal and unlabored. No wheezes, rales or rhonchi. HEART: Regular rate and rhythm without murmurs, rubs or gallops. S1 and S2 heard. EXTREMITIES: Normal range of motion, no edema. No clubbing or cyanosis. Peripheral pulses intact. ASSESSMENT Sinus bradycardia Acute diverticulitis with abscess formation Hypertension Asthma PLAN She continues to have bradycardia, mostly at night. She is asymptomatic consistently throughout this admission. Recommend outpatient follow up with event monitoring with Dr. Castro as previously discussed. Nurse Practitioner note has been reviewed, I agree with a documented findings and plan of care. Patient was seen and examined. Objective - Vital Signs Vital signs: Vital Signs Temp 98.1 F 12/31/20 07:27 Pulse 48 L 12/31/20 08:34 Resp 20 12/31/20 07:27 BP 140/71 12/31/20 07:27 Pulse Ox 94 L 12/31/20 07:27 Intake & Output 12/30/20 12/31/20 12/31/20 18:59 06:59 18:59 Intake Total 236 640 Balance 236 640 Weight 76.204 kg Intake: IV 100 Piperacillin-Tazobactam 3 100 .375 gm In Sodium Chloride 0.9% 100 ml @ 25 mls/hr IVPB Q8HR [facility] Rx# :[id number] Oral 236 540 Other: Voiding Method Toilet Toilet Toilet # Voids 2 2 1 - Labs CBC & Chem 7: 12/29/20 07:05 12/29/20 07:05 Labs: Abnormal Lab Results - Last 24 Hours (Table) 12/31/20 Range/Units 08:40 Ur Leukocyte Esterase Small H (Negative) Urine Mucus Rare H (None) /hpf
[2020-12-31] MEDS: HYDROmorphone 1 MG/ML 1 ML SYRINGE IVP PRN (22:14)
[2020-12-31] MEDS: ESCITALOPRAM 20 MG TAB PO SCH (22:15)
[2020-12-31] MEDS: traZODone HCL 100 MG TAB PO SCH (22:15)
--- NOTE | 2020-12-31 22:58 | PN ---
PROGRESS NOTE DATE OF SERVICE: 12/31/2020 REASON FOR FOLLOWUP: Diverticulitis, abscess. INTERVAL HISTORY: The patient is currently afebrile. The patient is breathing comfortably. Denies having any chest pain or shortness of breath or cough. No worsening abdominal pain. No nausea, no vomiting. No diarrhea. PHYSICAL EXAMINATION: Blood pressure 117/68 with a pulse of 45, temperature 99.3. She is 95% on room air. General description is a middle-aged female lying in bed in no distress. RESPIRATORY SYSTEM: Unlabored breathing. Clear to auscultation anteriorly. HEART: S1, S2. Regular rate and rhythm. ABDOMEN: Soft. No tenderness. LABS: No new labs have been obtained today. DIAGNOSTIC IMPRESSION AND PLAN: Patient with diverticulitis with an abscess in this patient who did have slow clinical response. The patient is covered with Zosyn. She will get a midline to continue with IV Zosyn for another week or 10 days with close outpatient followup. MMODL / IJN: [id number] /
[2021-01-01] MEDS: PIPERACILLIN-TAZOBACTAM 3.375 GM in SODIUM CHLORIDE 0.9% 100 ML IVPB SCH ×3 (00:44→15:21)
[2021-01-01] MEDS: LEVOTHYROXINE 25 MCG TAB PO SCH (05:39)
[2021-01-01] MEDS: HYDROcodone/APAP 5-325MG 1 EACH TAB PO PRN ×3 (05:42→15:22)
[2021-01-01] MEDS: DOCUSATE 100 MG CAP PO SCH (08:44)
[2021-01-01] MEDS: HEPARIN SODIUM,PORCINE 5,000 UNIT/ML 1 ML VIAL SQ SCH (08:44)
[2021-01-01] MEDS: PANTOPRAZOLE 40 MG TABLET PO SCH (08:44)
[2021-01-01] MEDS: LORATADINE 10 MG TAB PO SCH (08:44)
[2021-01-01] MEDS: amLODIPine 5 MG TAB PO SCH (08:44)
[2021-01-01] MEDS: MONTELUKAST 10 MG TAB PO SCH (08:44)
[2021-01-01] MEDS: ATORVASTATIN 10 MG TAB PO SCH (08:44)
[2021-01-01] MEDS: TOPIRAMATE 25 MG TAB PO SCH (09:03)
--- NOTE | 2021-01-01 14:52 | P.DS ---
Providers Date of admission: 12/23/20 21:07 Expected date of discharge: 01/01/21 Attending physician: Tino Vogel Consults: 12/23/20 21:05 Consult Physician Routine Consulting Provider: Anel Mir Consult Reason/Comments: medical mgmt Do you want consulting provider notified?: Yes 12/29/20 14:49 Consult Physician Routine Consulting Provider: William Harris Consult Reason/Comments: Nephrolithiasis Do you want consulting provider notified?: Yes 12/30/20 09:02 Consult Physician Routine Consulting Provider: Bisi Bernard Consult Reason/Comments: diverticultitis with abscess Do you want consulting provider notified?: Yes 12/31/20 10:25 Consult Physician Routine Consulting Provider: Derek Castro Consult Reason/Comments: heart rate 28 bpm at rest, continued bradycardia Do you want consulting provider notified?: Yes Primary care physician: Larissa Sanchez MD Hospital Course: Discharge diagnosis 1. Acute diverticulitis with peridiverticular abscess posterior to the proximal sigmoid colon Hospital course This is a 65-year-old female with a known history of diverticulitis with prior abscess, hyperlipidemia, migraines and hypertension. Her last episode of diverticulitis was in 2019. But she has flareups approximately every 5 years. She presented to the hospital complaints of left lower quadrant abdominal pain that started 2 nights ago. She reports that her stools have been loose with blood present. She states that the bleeding has stopped. The morphine is not lasting long enough for her pain. She's been started on IV antibiotics. She did have a white count of 12.2 on admission. Computed tomography scan of the abdomen and pelvis shows normal appendix. Wall thickening of the sigmoid colon with numerous diverticula. There is posterior proximal sigmoid colon fluid collections suggestive of a peridiverticular abscess. There is improvement in the inflammatory changes around the proximal sigmoid colon compared to the old exam. Diverticular abscess not significant change in size compared to old exam. Abscess measuring 3 x 1.5 cm. patient was started on IV antibiotics. And she is maintained on IV pain medication. She was being able to be switched over to oral pain medication. Dr. vogel did offer surgical intervention. However, patient and family wanted to proceed with conservative medical management with IV antibiotics and they declined surgery. Patient's white count did normalize. Her pain has improved and is controlled with oral pain medication. She will continue with IV antibiotics as prescribed per infectious disease via PICC line. Patient also seen by cardiology for bradycardia. The recommending further outpatient workup with an event monitor. Patient is afebrile. She is stable for discharge. Please refer to chart for any further details. Physician User Experience Developer note has been reviewed by physician. Signing provider agrees with the documented findings, assessment, and plan of care. Patient Condition at Discharge: Stable Plan - Discharge Summary Discharge Rx Participant: Yes New Discharge Prescriptions: New Piperacillin-Tazobactam [Zosyn] 3.375 gm IVPB Q6H #40 bag HYDROcodone/APAP 5-325MG [[place] 5-325] 1 tab PO Q6HR PRN 3 Days #12 tab PRN Reason: Pain No Action amLODIPine [Norvasc] 10 mg PO DAILY Montelukast Sodium [Singulair] 10 mg PO DAILY Escitalopram [Lexapro] 20 mg PO HS Atorvastatin [Lipitor] 10 mg PO DAILY traZODone HCL 200 mg PO HS Topiramate [Topamax] 50 mg PO BID Omeprazole 20 mg PO DAILY Loratadine 10 mg PO DAILY Albuterol Sulfate [Proair Hfa] 1 - 2 puff INHALATION RT-QID PRN PRN Reason: Shortness Of Breath Fluticasone Nasal [place] [Flonase Nasal [place]] 1 - 2 spr EA NOSTRIL DAILY PRN PRN Reason: Allergy Symptoms Rizatriptan Benzoate [Maxalt] 10 mg PO DAILY PRN PRN Reason: Migraine Headache Discharge Medication List Atorvastatin [Lipitor] 10 mg PO DAILY 08/19/18 [History] Escitalopram [Lexapro] 20 mg PO HS 08/19/18 [History] Montelukast Sodium [Singulair] 10 mg PO DAILY 08/19/18 [History] amLODIPine [Norvasc] 10 mg PO DAILY 08/19/18 [History] traZODone HCL 200 mg PO HS 08/19/18 [History] Albuterol Sulfate [Proair Hfa] 1 - 2 puff INHALATION RT-QID PRN 12/23/20 [History] Fluticasone Nasal [place] [Flonase Nasal [place]] 1 - 2 spr EA NOSTRIL DAILY PRN 12/23/20 [History] Loratadine 10 mg PO DAILY 12/23/20 [History] Omeprazole 20 mg PO DAILY 12/23/20 [History] Rizatriptan Benzoate [Maxalt] 10 mg PO DAILY PRN 12/23/20 [History] Topiramate [Topamax] 50 mg PO BID 12/23/20 [History] Piperacillin-Tazobactam [Zosyn] 3.375 gm IVPB Q6H #40 bag 12/30/20 [Rx] HYDROcodone/APAP 5-325MG [[place] 5-325] 1 tab PO Q6HR PRN 3 Days #12 tab 01/01/21 [Rx] Follow up Appointment(s)/Referral(s): Derek Castro DO [STAFF PHYSICIAN] - 1 Week (Office will call with appointment time) Larissa Sanchez MD [Primary Care Provider] - 1-2 days [facility] [REFERRING] - ([facility] will deliver the antibiotic supplies to your home this evening between 6-9 pm. They will send a nurse out tomorrow morning to begin teaching. They will call to set up the time. ) Tino Vogel MD [STAFF PHYSICIAN] - 1 Week Ambulatory/Diagnostic Orders: Basic Metabolic Panel [LAB.AMB] Location: None Selected Complete Blood Count w/diff [LAB.AMB] Location: None Selected Patient Instructions/Handouts: Diverticulitis (DC), Kidney Stones (DC), Diverticulitis Diet (DC) Activity/Diet/Wound Care/Special Instructions: Medicine to complete discharge med rec Activity as tolerated Diet soft, bland, no seeds or nuts Discharge Disposition: HOME WITH HOME HEALTH SERVICES
[2021-01-01 15:12] VITALS: BP 128/69; PULSE 45; RESP 18; TEMP 98.1
--- NOTE | 2021-01-01 15:38 | PN ---
PROGRESS NOTE DATE OF SERVICE: 01/01/2021 REASON FOR FOLLOWUP: Diverticulitis and abscess. INTERVAL HISTORY: The patient is currently afebrile. The patient is breathing comfortably. The patient denies having any chest pain or shortness of breath or cough. Abdominal pain has improved. No nausea, no vomiting, no diarrhea. PHYSICAL EXAMINATION: Blood pressure 120/68 with a pulse of 61, temperature 98. She is 95% on room air. General description is a middle-aged female lying in bed in no distress. RESPIRATORY SYSTEM: Unlabored breathing, clear to auscultation anteriorly. HEART: S1, S2. Regular rate and rhythm. ABDOMEN: Soft, no tenderness. LABS: No new labs have been obtained today. DIAGNOSTIC IMPRESSION AND PLAN: Patient with acute diverticulitis and peridiverticular abscess in this patient seemed to have shown overall clinical improvement with Zosyn to continue for another 10 days in outpatient setting and close outpatient followup. MMODL / IJN: [id number] /
== END 2021-01-01 17:50 | disposition home health service (06) | DRG 379 ==
LOC: EC 18:09 → 4SSUR 21:07
PROVIDERS: ADMIT Surgery; ATTEND Surgery
PROC: 05HF33Z Insertion of Infusion Device into Left Cephalic Vein, Percutaneous Approach (ICD-10-PCS; principal; 2020-12-30 07:30)
DX: K57.21 Diverticulitis of large intestine with perforation and abscess with bleeding (principal); G43.909 Migraine, unspecified, not intractable, without status migrainosus; I10 Essential (primary) hypertension; J45.909 Unspecified asthma, uncomplicated; K21.9 Gastro-esophageal reflux disease without esophagitis; F32.9 Major depressive disorder, single episode, unspecified; E78.5 Hyperlipidemia, unspecified; E03.9 Hypothyroidism, unspecified; E66.9 Obesity, unspecified; N20.0 Calculus of kidney; Z68.31 Body mass index [BMI] 31.0-31.9, adult; Z79.899 Other long term (current) drug therapy; Z87.442 Personal history of urinary calculi; Z87.891 Personal history of nicotine dependence; Z20.822 Contact with and (suspected) exposure to COVID-19; Z80.1 Family history of malignant neoplasm of trachea, bronchus and lung; Z82.0 Family history of epilepsy and other diseases of the nervous system; Z82.49 Family history of ischemic heart disease and other diseases of the circulatory system; R42 Dizziness and giddiness; R00.1 Bradycardia, unspecified
CPT/HCPCS: 36410; 36415; 74177; 76937; 80048; 80053; 81001; 84145; 84439; 84443; 84484; 85025; 85610; 85730; 86140; 86850; 86900; 86901; 87635; 93005; 93306; 94640; 96361; 96365; 96375; 96376; 99285

== ENCOUNTER → 2021-02-13 | Outpatient (CLI) | payer OTHER | END | disposition home or self-care (01) | LOC: LABWHC1 12:01 | PROVIDERS: ATTEND Family Medicine | DX: R19.7 Diarrhea, unspecified (principal) | CPT/HCPCS: 87045; 87046; 87324 ==

== ENCOUNTER → 2021-09-10 | Outpatient (CLI) | payer MEDICARE | END | disposition home or self-care (01) | LOC: LABWHC1 16:52 | PROVIDERS: ATTEND Urology | DX: N20.0 Calculus of kidney (principal) | CPT/HCPCS: 87086 ==

== ENCOUNTER → 2021-12-17 | Outpatient (CLI) | payer MEDICARE, OTHER ==
[2021-12-17 19:18] LABS: ALT 28 U/L (8-44); AST 24 U/L (13-35); African American GFR (CKD) 67.7 (60.0-200.0); Albumin 4.3 g/dL (3.8-4.9); Albumin/Globulin Ratio 1.57 (1.60-3.17); Alkaline Phosphatase 121 U/L (41-126); BUN/Creat Ratio 13.47 Ratio (12.00-20.00); Blood Urea Nitrogen 13.6 mg/dL (9.0-27.0); Calcium 9.8 mg/dL (8.7-10.3); Carbon Dioxide 22.1 mmol/L (20.0-27.5); Chloride 105 mmol/L (96-109); Globulin 2.7 g/dL (1.6-3.3); Glucose 126 mg/dL (70-110); Non-African American GFR(CKD) 58.4 (60.0-200.0); Potassium 4.3 mmol/L (3.5-5.5); Sodium 140 mmol/L (135-145)
[2021-12-17 19:19] LABS: Chol/HDL Ratio 3.67 Ratio; LDL Cholesterol,Calculated 91.3 mg/dL (0.0-131.0)
== END | disposition home or self-care (01) ==
LOC: LABWHC1 11:19
PROVIDERS: ATTEND Internal Medicine Interventional Cardiology
DX: E78.2 Mixed hyperlipidemia (principal)
CPT/HCPCS: 36415; 80053; 80061; 84443

== ENCOUNTER → 2021-12-17 | Outpatient (CLI) | payer MEDICARE ==
--- NOTE | 2021-12-17 19:42 | CT ---
EXAMINATION TYPE: CT abdomen pelvis wo con DATE OF EXAM: 12/17/2021 COMPARISON: CT dated 12/28/2020 HISTORY: left flank pain CT DLP: 916 mGycm Automated exposure control for dose reduction was used. TECHNIQUE: Helical acquisition of images was performed from the lung bases through the pelvis. No IV contrast demonstration. FINDINGS: Multiple nonobstructing calculi are seen at the lower pole of the left kidney measuring up to 8 x 10 mm. No other definite radiodense renal, ureteric or urinary calculi. Left upper and to a lesser exten t middle calyceal dilatation, not progressed compared to the previous CT scan. Underlying intrarenal distal stricture cannot be excluded. No hydroureter bilaterally. No right-sided hydronephrosis. Grossly unremarkable urinary bladder. No g ross uterine or right adnexal mass. The left adnexa is inseparable from the left side of the sigmoid colon with possible adhesions in between. Unremarkable unenhanced CT appearance of the liver, gallbladder, spleen, pancreas and adrenals. Scatt ered arterial atherosclerotic calcifications. Suspected 9 mm marginally calcified splenic artery aneu rysm. Unremarkable nondistended stomach, duodenum and small bowel. Colonic diverticulosis most evident involving the sigmoid colon and descending colon. Small fat-conta ining umbilical hernia. No suspicious lymphadenopathy or sizable ascites. Bilateral basal subsegmenta l pulmonary atelectasis. Bilateral L3-4 facet osteoarthropathy with grade 1 anterolisthesis of L3 ove r L4. Degenerative changes at T10-11 and L1-2 levels. No aggressive bone lesion. IMPRESSION: 1. Left lower renal pole nonobstructing calculi measuring up to 10 mm. 2. Persistent left upper and to a lesser extent left middle calyceal dilatation without definite obst ructing stone, underlying intrarenal distal stricture cannot be excluded. Further assessment by CT ur ogram or renal scintigraphy can be considered if clinically required. Other incidental findings as de tailed above.
== END | disposition home or self-care (01) ==
LOC: RADCTMAIN 12:10
PROVIDERS: ATTEND Urology
DX: N20.0 Calculus of kidney (principal)
CPT/HCPCS: 74176

== ENCOUNTER → 2022-02-13 | Outpatient (CLI) | payer MEDICARE ==
[2022-02-13 10:41] LABS: ALT 25 U/L (8-44); AST 21 U/L (13-35); African American GFR (CKD) 77.8 (60.0-200.0); Blood Urea Nitrogen 17.3 mg/dL (9.0-27.0); Chol/HDL Ratio 4.01 Ratio; LDL Cholesterol,Calculated 79.7 mg/dL (0.0-131.0); Non-African American GFR(CKD) 67.1 (60.0-200.0)
== END | disposition home or self-care (01) ==
LOC: LABWHC1 07:02
PROVIDERS: ATTEND Internal Medicine Interventional Cardiology
DX: K57.92 Diverticulitis of intestine, part unspecified, without perforation or abscess without bleeding (principal); E78.2 Mixed hyperlipidemia
CPT/HCPCS: 36415; 80061; 82565; 84450; 84460; 84520

== ENCOUNTER → 2022-02-18 | Outpatient (CLI) | payer MEDICARE, OTHER ==
--- NOTE | 2022-02-18 13:15 | CT ---
EXAMINATION TYPE: CT abdomen pelvis wo/w con DATE OF EXAM: 02/18/2022 HISTORY: DIVERTICULITIS CT DLP: 2295mGycm Automated Exposure Control for Dose Reduction was Utilized. CONTRAST: CT scan of the abdomen and pelvis is performed with oral and without and with IV Contrast, patient in jected with 100ML mL of Isovue 300. COMPARISON: CT abdomen and pelvis. 2021 and older CTs FINDINGS: LUNG BASES: Mild to moderate focal left basilar linear scarring is redemonstrated. LIVER/GB: No significant abnormality is appreciated. PANCREAS: No significant abnormality is seen. SPLEEN: Stable subcentimeter splenic artery aneurysm coronal series 8 image 62. ADRENALS: No significant abnormality is seen. KIDNEYS: Stable roughly 8 mm calculus lower pole left kidney sagittal image 62 series 8. Stable 5 mm calculus posterior to this axial image 31 series 3. Symmetric cortical medullary uptake and excretion without right-sided hydronephrosis. Persistent mild to moderate left sided pyelocaliectasis and mild left-sided hydroureter up to level of bladder without new calculus. Somewhat poorly distended bladde r without intraluminal calculus. BOWEL: Oral contrast noncontrast study reaches level of the left colon. There are diverticula through out the left and sigmoid colon redemonstrated. Somewhat redundant sigmoid colon. No significant surro unding fat stranding to suggest acute diverticulitis on current study. UTERUS/ADNEXA: Anteverted uterus. Left ovary inseparable from the adjacent sigmoid colon axial image 64 series 6 is redemonstrated. Suspect adhesions. LYMPH NODES: No greater than 1cm abdominal or pelvic lymph nodes are appreciated. OSSEOUS STRUCTURES: Facet arthropathy lower lumbar spine again seen. Stable slight grade 1 anterolist hesis L3 on L4. Stable mild to moderate disc space narrowing L1-L2 level. OTHER: Small to moderate-sized fat-containing umbilical hernia is redemonstrated. IMPRESSION: Distal colonic diverticulosis without CT evidence for acute diverticulitis. No significan t new acute finding identified.
== END | disposition home or self-care (01) ==
LOC: RADCTMAIN 10:26
PROVIDERS: ATTEND Internal Medicine Gastroenterology
DX: K57.30 Diverticulosis of large intestine without perforation or abscess without bleeding (principal)
CPT/HCPCS: 74178; 36415; Q9967

== ENCOUNTER → 2022-02-18 | Outpatient (CLI) | payer MEDICARE, OTHER ==
--- NOTE | 2022-02-18 11:46 | XR ---
Abdomen HISTORY: Left-sided kidney stones Correlation to CT 12/17/2021 Frontal view the abdomen on 2 images Technique of the exam limits evaluation. Multiple calcifications are seen over the lower pole the lef t kidney as noted on prior CT. Retained fecal debris is present throughout the distribution of the co yovany. There are phleboliths present within the pelvis. No evident pneumoperitoneum. Lung bases show so me probable atelectatic changes or scarring. Bones are within normal limits. IMPRESSION: Left-sided nephrolithiasis.
== END | disposition home or self-care (01) ==
LOC: RADXRMAIN 10:35
PROVIDERS: ATTEND Urology
DX: N20.0 Calculus of kidney (principal)
CPT/HCPCS: 74018

== ENCOUNTER → 2022-03-11 | Outpatient (CLI) | payer MEDICARE, OTHER ==
[2022-03-12 00:14] LABS: Calcium 10.5 mg/dL (8.7-10.3); Uric Acid 5.7 mg/dL (2.9-7.7)
== END | disposition home or self-care (01) ==
LOC: LABWHC1 14:02
DX: N20.0 Calculus of kidney (principal)
CPT/HCPCS: 36415; 82306; 82310; 83970; 84550

== ENCOUNTER → 2022-06-09 | Outpatient (CLI) | payer MEDICARE, OTHER ==
--- NOTE | 2022-06-09 15:24 | NM ---
EXAMINATION TYPE: NM renal flow and function DATE OF EXAM: 06/09/2022 COMPARISON: NONE HISTORY: Hydronephrosis Following administration of 10.3 mCi Tc99m MAG3. Immediate images post injection. FINDINGS: Left: 45.8 %. Right: 54.2 %. Max renal flow left: 8.0 minutes. Max renal flow right: 54.2 minutes. Satisfactory accumulation of radiotracer within both renal collecting systems. T 1/2 left: NA minutes. T 1/2 right: 14.4 minutes. FINDINGS: The time activity curve on the right is normal. The time activity in the left shows normal perfusion but delayed excretion and uptake. Delayed images demonstrate what appears to be left-sided hydronephrosis. IMPRESSION: 1. Abnormal time activity curve on the left with findings suggestive of left-sided hydronephrosis and abnormal split renal function of 45.8%.
== END | disposition home or self-care (01) ==
LOC: RADNMMAIN 12:48
PROVIDERS: ATTEND Urology
DX: N13.30 Unspecified hydronephrosis (principal)
CPT/HCPCS: 78707; A9562

== ENCOUNTER → 2022-08-04 | Outpatient (CLI) | payer MEDICARE, OTHER ==
[2022-08-05 03:00] LABS: Basophils # (A) 0.05 X 10*3/uL (0.00-0.10); Basophils % (A) 0.6 %; Eosinophils # (A) 0.26 X 10*3/uL (0.04-0.35); Eosinophils % (A) 2.9 %; HCT 41.9 % (37.2-46.3); HGB 14.3 g/dL (12.0-15.0); Immature Grans, Automated 0.2 %; Lymphocytes # (A) 3.38 X 10*3/uL (0.90-5.00); Lymphocytes % (A) 37.2 %; MCH 29.9 pg (27.0-32.0); MCHC 34.1 g/dL (32.0-37.0); MCV 87.7 fL (80.0-97.0); Mean Platelet Volume 11.2 fL (9.5-12.2); Monocytes # (A) 0.64 X 10*3/uL (0.20-1.00); NRBC Per 100 WBC 0 /100 WBCS (0.0-0.0); Neutrophils # (A) 4.73 X 10*3/uL (1.80-7.70); Neutrophils % (A) 52.1 %; Platelet Count 273 X 10*3/uL (140-440); RBC 4.78 X 10*6/uL (4.10-5.20); RDW 13.7 % (11.5-14.5); WBC 9.08 X 10*3/uL (4.50-10.00)
[2022-08-05 07:16] LABS: ALT 31 U/L (8-44); AST 25 U/L (13-35); African American GFR (CKD) 77.2 (60.0-200.0); Albumin 4.7 g/dL (3.8-4.9); Albumin/Globulin Ratio 1.74 (1.60-3.17); Alkaline Phosphatase 121 U/L (41-126); BUN/Creat Ratio 16.33 Ratio (12.00-20.00); Blood Urea Nitrogen 14.7 mg/dL (9.0-27.0); Calcium 10.6 mg/dL (8.7-10.3); Carbon Dioxide 23.5 mmol/L (20.0-27.5); Chloride 102 mmol/L (96-109); Globulin 2.7 g/dL (1.6-3.3); Glucose 131 mg/dL (70-110); Non-African American GFR(CKD) 66.6 (60.0-200.0); Phosphorus 3.1 mg/dL (2.4-5.1); Potassium 4.4 mmol/L (3.5-5.5); Prealbumin 34.7 mg/dL (18.0-42.0); Sodium 140 mmol/L (135-145); Total Protein 7.4 g/dL (6.2-8.2)
[2022-08-05 07:24] LABS: Testosterone <2.50 ng/mL (7.00-45.62)
[2022-08-05 07:50] LABS: Appearance,Urine Clear (Clear); Bilirubin,Urine Negative (Negative); Blood,Urine Negative (Negative); Color,Urine Yellow (Yellow); Ketones,Urine Trace mg/dL (Negative); Nitrite,Urine Negative (Negative); Specific Gravity,Urine 1.021 (1.001-1.030); Urobilinogen,Urine 0.2 (0.2,1.0)
[2022-08-05 07:55] LABS: Bacteria,Urine None Seen /HPF (None Seen)
[2022-08-05 14:54] LABS: Estrogens Total 65 pg/mL
[2022-08-05 19:14] LABS: Vitamin D, 1, 25-Dihydroxy 43 pg/mL (20 - 79)
== END | disposition home or self-care (01) ==
LOC: LABWHC1 15:27
PROVIDERS: ATTEND Orthopaedic Surgery Sports Medicine
DX: M25.551 Pain in right hip (principal); M51.36 Other intervertebral disc degeneration, lumbar region; M84.351D Stress fracture, right femur, subsequent encounter for fracture with routine healing
CPT/HCPCS: 36415; 80053; 81001; 82306; 82310; 82652; 82672; 83970; 84100; 84134; 84403; 85025

== ENCOUNTER → 2022-08-25 | Outpatient (CLI) | payer MEDICARE, OTHER ==
--- NOTE | 2022-08-26 07:13 | CT ---
EXAMINATION TYPE: CT urogram wo/w con DATE OF EXAM: 08/25/2022 HISTORY: kidney stones and hydroureter. CT DLP: 3398mGycm Automated Exposure Control for Dose Reduction was Utilized. CONTRAST: CT scan of the abdomen and pelvis is performed without oral and without and with IV Contrast, patient injected with 100 mL of Isovue 300. Urogram protocol with 3-D reconstructed images created on an [employer] workstation and reviewed. COMPARISON: Prior CT abdomen and pelvis February 18, 2022 FINDINGS: KUB: Stable roughly 8 mm calculus lower pole left kidney coronal image 62 series 4. Larger elongated calculus posterior to this measures 11 mm long axis coronal image 66. New 4 mm calculus lower pole l evel axial image 52. No right-sided nephrolithiasis. Symmetric cortical medullary uptake and excretio n with mild left-sided pyelocaliectasis less prominent versus prior. No right-sided hydronephrosis. N o concerning solid or cystic renal masses are seen bilaterally. Enhancement of the majority of the ur eters bilaterally without obstructing mass or calculus. No mass or calculus in the urinary bladder.22 LUNG BASES: Mild to moderate bibasilar linear scarring and/or atelectasis is more prominent from prio r. LIVER/GB: No significant abnormality is appreciated. PANCREAS: No significant abnormality is seen. SPLEEN: Stable subcentimeter rim calcified splenic artery aneurysm anteriorly axial image 20 series 6 . ADRENALS: No significant abnormality is seen. BOWEL: There are diverticula throughout the left and sigmoid colon redemonstrated. Somewhat redundant sigmoid colon. No significant surrounding fat stranding to suggest acute diverticulitis on current s tudy. UTERUS/ADNEXA: Anteverted uterus. Left ovary inseparable from the adjacent sigmoid colon axial image 63 series 14 is redemonstrated. Suspect adhesions. LYMPH NODES: No greater than 1cm abdominal or pelvic lymph nodes are appreciated. OSSEOUS STRUCTURES: Facet arthropathy lower lumbar spine again seen. Stable slight grade 1 anterolist hesis L3 on L4. Stable moderate disc space narrowing L1-L2 level. OTHER: Small size fat-containing umbilical hernia is redemonstrated. IMPRESSION: Increasing lower pole left-sided nephrolithiasis. Mild to minimal left-sided hydronephros is less prominent from prior. No delayed excretion. No obstructing ureter calculus.
== END | disposition home or self-care (01) ==
LOC: RADCTMAIN 12:02
PROVIDERS: ATTEND Urology
DX: N13.2 Hydronephrosis with renal and ureteral calculous obstruction (principal); K57.32 Diverticulitis of large intestine without perforation or abscess without bleeding
CPT/HCPCS: 82565; 84520; 74178; 36415; 74400; Q9967

== ENCOUNTER → 2022-09-16 | Outpatient (CLI) | payer MEDICARE, OTHER ==
--- NOTE | 2022-09-16 13:21 | BD ---
EXAMINATION TYPE: Axial Bone Density DATE OF EXAM: 09/16/2022 COMPARISON: NONE CLINICAL HISTORY: 67 year old Female. ICD-10 CODE: M81.0 AGE RELATED OSTEOPOROSIS Height: 61 Weight: 180.1 FRAX RISK QUESTIONS: Alcohol (3 or more units per day): no Family History (Parent hip fracture): yes Glucocorticoids (More than 3mos): no (Ex: prednisone, prednisolone, methylprednisolone, dexamethasone, and hydrocortisone). History of Fracture in Adulthood: yes Secondary Osteoporosis: 1. Type 1 Diabetes: no 2. Hyperthyroidism: no 3. Menopause before 45: no 4. Malnutrition: no 5. Chronic liver disease: no Rheumatoid Arthritis: no Current Tobacco Use: no RISK FACTORS HISTORY OF: Hip Fracture (Right/Left): right When: 3 months ago Surgery to Spine/Hip(right/left)/Wrist (right/left): no Family History of Osteoporosis: yes Active: yes Diet low in dairy products/other sources of calcium: yes Postmenopausal woman: yes Lost more than 2 inches in height since high school: yes MEDICATIONS: Thyroid Medications: synthroid How Lon years Osteoporosis Medications: Prolia How Long: last injection was on year ago Additional Medications: Additional History: EXAM MEASUREMENTS: Bone mineral densitometry was performed using the [employer] System. Bone mineral density as measured about the Lumbar spine is: ----- L1-L4(G/cm2): 0.826 T Score Values are as follows: ----- L1: -3.2 ----- L2: -3.5 ----- L3: -.9 ----- L4: -2.4 ----- L1-L4: -3.0 Bone mineral density has: increased 2.3 % since study of: 01.03.2019 Bone mineral density about the L hip (g/cm2): 0.698 T Score values are as follows: -----L Neck: -2.4 -----L Total: -1.7 Bone mineral density has: increased 0.6 % since study of: 01.03.2019 FRAX%s: The graph provided illustrates a 17.0% chance for a major osteoporotic fx and a 3.9% chance f or the hips probability for fx in 10 years time. IMPRESSION: Osteoporosis (T Score less than -2.5). There is increased fracture risk and therapy is usually indicated based on age. Re-Screen 1-2 years. NOTE: T-SCORE=SD OF THE YOUNG ADULT MEAN.
== END | disposition home or self-care (01) ==
LOC: RADBDWWP 10:42
PROVIDERS: ATTEND Family Medicine
DX: M81.0 Age-related osteoporosis without current pathological fracture (principal)
CPT/HCPCS: 77080

== ENCOUNTER → 2023-03-03 | Outpatient (CLI) | payer MEDICARE, OTHER ==
[2023-03-03 21:09] LABS: African American GFR (CKD) 77.2 (60.0-200.0); Anion Gap 12.7 mmol/L (10.00-18.00); BUN/Creat Ratio 15.33 Ratio (12.00-20.00); Blood Urea Nitrogen 13.8 mg/dL (9.0-27.0); Calcium 9.5 mg/dL (8.7-10.3); Carbon Dioxide 23.3 mmol/L (20.0-27.5); Non-African American GFR(CKD) 66.6 (60.0-200.0); Potassium 4.1 mmol/L (3.5-5.5)
== END | disposition home or self-care (01) ==
LOC: LABWHC1 12:14
PROVIDERS: ATTEND Nurse Practitioner Adult Health
DX: I10 Essential (primary) hypertension (principal)
CPT/HCPCS: 36415; 80048

== ENCOUNTER → 2023-06-30 | Outpatient (CLI) | payer MEDICARE, OTHER ==
[2023-06-30 07:53] LABS: African American GFR (CKD) 75 (>60 ml/min/1.73 sqM); Non-African American GFR(CKD) 65 (>60 ml/min/1.73 sqM)
--- NOTE | 2023-06-30 09:16 | CT ---
EXAMINATION TYPE: CT abdomen pelvis w con CT DLP: 1335.2 mGycm, Automated exposure control for dose reduction was used. DATE OF EXAM: 06/30/2023 8:57 AM COMPARISON: CT urogram 08/25/2022, CT abdomen pelvis 02/18/2022. CLINICAL INDICATION:Female, 67 years old with history of K57.92 DVTRCLI OF INTEST, PART UNSP; h/o div erticulitis, abd pain, vomiting x2 weeks TECHNIQUE: Standard CT of the abdomen and pelvis following the administration of 100 cc of Isovue 3 00 IV contrast material and oral contrast. Coronal and sagittal reformats were performed. FINDINGS: LOWER CHEST: Bibasilar linear atelectasis. Small fat filled right Bochdalek hernia. ABDOMEN LIVER: Diffusely hypoattenuating parenchyma. GALLBLADDER AND BILE DUCTS: Unremarkable. PANCREAS: Unremarkable. SPLEEN: Stable subcentimeter rim calcified splenic artery aneurysm. ADRENAL GLANDS: Unremarkable. KIDNEYS AND URETERS: No evidence of hydronephrosis. Nonobstructive left lower pole renal calculi iden tified measuring up to 1 cm. These calculi have increase in size from prior examination. The kidneys enhance symmetrically. PELVIS BLADDER: Under distended, limiting evaluation. REPRODUCTIVE: Unremarkable. ABDOMEN & PELVIS STOMACH AND BOWEL: Stomach and duodenum are unremarkable. Distal colonic diverticulosis without evide nce for acute diverticulitis. Enteric contrast reaches the ascending colon. No focal bowel wall thick ening or surrounding inflammatory changes. No evidence of bowel obstruction. PERITONEUM: No evidence of pneumoperitoneum or free fluid. VASCULATURE: No evidence of aortic aneurysm. Few pelvic phleboliths. MUSCULOSKELETAL: No acute osseous abnormalities. Mild disc degeneration changes are present throughou t the thoracolumbar spine. Grade 1 anterolisthesis of L3 on L4. LYMPH NODES: No gross evidence for lymphadenopathy. SOFT TISSUE/ABDOMINAL WALL: Tiny fat filled umbilical hernia. IMPRESSION: 1. No acute abdominal/pelvic process. 2. Colonic diverticulosis without evidence for acute diverticula arise. 3. Increased size of nonobstructive left renal calculi from prior examination. 4. Hepatic steatosis.
== END | disposition home or self-care (01) ==
LOC: RADCTMAIN 07:02
PROVIDERS: ATTEND Internal Medicine Gastroenterology
DX: K57.30 Diverticulosis of large intestine without perforation or abscess without bleeding (principal); K57.92 Diverticulitis of intestine, part unspecified, without perforation or abscess without bleeding; N20.0 Calculus of kidney; K76.0 Fatty (change of) liver, not elsewhere classified
CPT/HCPCS: 82565; 74177; 36415; Q9967

== ENCOUNTER → 2023-11-16 | Outpatient (CLI) | payer MEDICARE, OTHER ==
[2023-11-16 17:16] LABS: ALT 37 U/L (8-44); AST 28 U/L (13-35); Chol/HDL Ratio 3.89 Ratio
== END | disposition home or self-care (01) ==
LOC: LABWHC1 09:59
PROVIDERS: ATTEND Internal Medicine Interventional Cardiology
DX: E78.2 Mixed hyperlipidemia (principal)
CPT/HCPCS: 36415; 80061; 84450; 84460

== ENCOUNTER → 2023-11-16 | Outpatient (CLI) | payer MEDICARE, OTHER ==
--- NOTE | 2023-11-16 10:41 | XR ---
EXAMINATION TYPE: XR KUB DATE OF EXAM: 11/16/2023 10:32 AM CLINICAL INDICATION:Female, 68 years old with history of N20.0 calculus of kidney; [facility] COMPARISON: 11/16/2023 TECHNIQUE: One radiographic view of the abdomen was obtained. FINDINGS: The bowel gas pattern is nonspecific without dilated loops of small or large bowel. There i s no evidence for organomegaly or pneumoperitoneum. The osseous structures are intact. No abnormal calcifications are present. Fecal material and gas are demonstrated throughout the colon and rectum. IMPRESSION: 1. No renal calculi visualized. 2. Nonspecific bowel gas pattern without radiographic evidence for acute process.
== END | disposition home or self-care (01) ==
LOC: RADXRMAIN 10:23
PROVIDERS: ATTEND Urology
DX: N20.0 Calculus of kidney (principal)
CPT/HCPCS: 74018

== ENCOUNTER → 2023-12-03 | Outpatient (CLI) | payer MEDICARE, OTHER ==
--- NOTE | 2023-12-06 14:00 | US ---
EXAMINATION TYPE: US kidneys/renal and bladder DATE OF EXAM: 12/03/2023 COMPARISON: CLINICAL INDICATION: Female, 68 years old with history of N20.0 CALCULUS OF KIDNEY; Hx renal stones, no pain EXAM MEASUREMENTS: Right Kidney: 10.5 x 5.7 x 5.0 cm Left Kidney: 9.4 x 4.2 x 4.6 cm No hydronephrosis on either side. Right Kidney: Possible prominent column of Singh Left Kidney: Multiple echogenic foci seen at lower pole = 1.9 cm. Renal sinus small parapelvic cyst versus prominent pyramid = 1.2 x 1.0 x 1.3 cm Bladder: Under distention limits evaluation. Right Jet seen Incidental echogenic hepatic parenchyma. IMPRESSION: 1. No hydronephrosis. 2. At least 3 nonobstructive left lower pole renal calculi measuring up to 1.9 cm. 3. Incidental: Suspect at least moderate hepatic steatosis.
== END | disposition home or self-care (01) ==
LOC: RADUSWWP 15:16
PROVIDERS: ATTEND Urology
DX: N20.0 Calculus of kidney (principal); K76.0 Fatty (change of) liver, not elsewhere classified
CPT/HCPCS: 76770

== ENCOUNTER → 2023-12-03 | Outpatient (CLI) | payer MEDICARE, OTHER ==
[2023-12-03 18:52] LABS: BUN/Creat Ratio 20.38 Ratio (12.00-20.00); Blood Urea Nitrogen 26.5 mg/dL (9.0-27.0); Calcium 10.5 mg/dL (8.7-10.3); Carbon Dioxide 23.3 mmol/L (21.6-31.8); Chloride 97 mmol/L (96-109); Glucose 115 mg/dL (70-110); Phosphorus 3.4 mg/dL (2.4-5.1); Sodium 140 mmol/L (135-145)
== END | disposition home or self-care (01) ==
LOC: LABWHC1 15:05
PROVIDERS: ATTEND Internal Medicine
DX: E11.65 Type 2 diabetes mellitus with hyperglycemia (principal); E03.9 Hypothyroidism, unspecified
CPT/HCPCS: 36415; 80069

== ENCOUNTER → 2023-12-14 | Outpatient (CLI) | payer MEDICARE, OTHER ==
--- NOTE | 2023-12-14 16:25 | P.PN ---
Progress Note - Text Progress Note Date: 12/14/23 This is a 68-year-old female patient was coming in to be evaluated for obstructive sleep apnea. The patient is known to me. I did a consultation on this patient in my office back and 04/28/2022 and at that time the patient was supposed to undergo a cardiac testing to be evaluated for obstructive sleep apnea. Nevertheless, she had an issue with hyperparathyroidism and the patient was undergoing a parathyroid surgery. Based on that, I postponed the diagnostic testing till the patient completed her parathyroidectomy. Noted the surgery was done at [facility] and the surgery was essentially successful without any complications. Calcium level has normalized. The patient meanwhile continues to have some loud snoring. No witnessed apneas. She is still feeling fatigued and tired without any major sleepiness. Her current Wayland score is at 4. No recent weight gain or weight loss. She has been going to bed at around 11 PM and waking at 9 AM in the morning. She wakes up without an alarm and she feels fatigued during the day. She wakes up 2 times in the middle of the night for urination. Does not take any naps during the day. No sleep paralysis. No hallucinations. No cataplexy. No restlessness in her lower extremities. Since her last evaluation, the patient was also diagnosed having diabetes mellitus type 2 and she was started on metformin. She also has chronic issues with hypothyroidism, hypertension and kidney stones along with chronic depression. Review of system 14 point review of system was done and the positive findings are all mentioned above history of present illness. Noted over the years, the patient has gained around 50 pounds yet there is no significant weight gain since her last evaluation. She has issues with diverticulosis. She has issues with chronic arthritis and fatigue and kidney stones. She also has history of snoring. No shortness of breath. No angina. No palpitations. No increased anxiety at this point in time. She is going to bed around 11 PM and waking up at 9 AM in the morning. She wakes up with a dry mouth. No other complaints otherwise for now BP is 128/78 with a pulse of 68 and a respiration of 16 and a temperature 97.5. Pulse ox 95% on room air oxygen. Wayland scores of 4 with a body mass index of 33.6. The patient has height of 5 feet and 1 inch and weight of 178 The patient appeared well nourished and normally developed. Vital signs as documented. Head exam is unremarkable. No scleral icterus or corneal arcus noted. Neck is without jugular venous distension, thyromegaly, or carotid bruits. The patient has crowding of the posterior pharynx with a Mallampati class IV carotid upstrokes are brisk bilaterally. Lungs are clear to auscultation and percussion. Cardiac exam reveals the PMI to be normally sized and situated. Rhythm is regular. First and second heart sounds normal. No mur murs, rubs or gallops. Abdominal exam reveals normal bowel sounds, no masses, no organomegaly and no aortic enlargement. Extremities are nonedematous and both femoral and pedal pulses are normal. Examination of the skin revealed no evidence of significant rashes, suspicious appearing nevi or other concerning lesions. Neurologically, the patient is awake and alert and the patient does not have any focal neurological deficit. Cranial nerves are essentially intact. Assessment Snoring symptoms. Rule out possibility of obstructive sleep apnea. My overall clinical suspicion is low in this patient. Despite her snoring, no significant witnessed apneas and the patient has various other comorbidities contributing to her chronic fatigue. Nevertheless, he will be worse for at least a delayed screening test to rule out the possibility or the presence of obstructive sleep apnea History of hyperparathyroidism post parathyroidectomy History of kidney stones Diabetes mellitus type 2 Acid reflux Depression Diverticulosis Hypertension Hypothyroidism History of obesity, weight has been essentially stable with a body mass index of 33.6 Plan Will proceed with a home sleep study to evaluate the presence of sleep apnea will make further recommendations if treatment is needed. Encourage weight loss. Optimize sleep hygiene measures. Treat comorbidities. Will continue to follow.
== END ==
LOC: 3 N SLEEP 13:54
PROVIDERS: ATTEND Internal Medicine Critical Care Medicine
DX: G47.33 Obstructive sleep apnea (adult) (pediatric) (principal); E11.9 Type 2 diabetes mellitus without complications; E03.9 Hypothyroidism, unspecified; I10 Essential (primary) hypertension; E66.9 Obesity, unspecified; F32.A Depression, unspecified; K21.9 Gastro-esophageal reflux disease without esophagitis; K57.90 Diverticulosis of intestine, part unspecified, without perforation or abscess without bleeding; Z87.442 Personal history of urinary calculi; Z68.33 Body mass index [BMI] 33.0-33.9, adult; Z86.39 Personal history of other endocrine, nutritional and metabolic disease; Z98.890 Other specified postprocedural states; Z79.890 Hormone replacement therapy; Z79.899 Other long term (current) drug therapy; Z87.891 Personal history of nicotine dependence
CPT/HCPCS: 99212

== ENCOUNTER → 2024-05-04 | Outpatient (CLI) | payer MEDICARE, OTHER ==
[2024-05-04 16:26] LABS: ALT 20 U/L (8-44); AST 22 U/L (13-35); Albumin 4.9 g/dL (3.8-4.9); Albumin/Globulin Ratio 1.96 Ratio (1.60-3.17); Alkaline Phosphatase 67 U/L (41-126); BUN/Creat Ratio 18.28 Ratio (12.00-20.00); Blood Urea Nitrogen 32.9 mg/dL (9.0-27.0); Calcium 9.8 mg/dL (8.7-10.3); Carbon Dioxide 22.4 mmol/L (21.6-31.8); Chloride 98 mmol/L (96-109); Chol/HDL Ratio 3.22 Ratio; Globulin 2.5 g/dL (1.6-3.3); Glucose 107 mg/dL (70-110); LDL Cholesterol,Calculated 64.5 mg/dL (0.0-131.0); Potassium 3.7 mmol/L (3.5-5.5); Sodium 139 mmol/L (135-145); Total Bilirubin 0.3 mg/dL (0.3-1.2); Total Protein 7.4 g/dL (6.2-8.2)
== END | disposition home or self-care (01) ==
LOC: LABWHC1 11:08
PROVIDERS: ATTEND Internal Medicine Interventional Cardiology
DX: E78.2 Mixed hyperlipidemia (principal); E11.9 Type 2 diabetes mellitus without complications
CPT/HCPCS: 36415; 80053; 80061; 83036

== ENCOUNTER → 2024-05-24 | Outpatient (CLI) | payer MEDICARE, OTHER | END | disposition home or self-care (01) | LOC: LABWHC1 12:08 | DX: Z11.59 Encounter for screening for other viral diseases (principal); E78.2 Mixed hyperlipidemia; E11.9 Type 2 diabetes mellitus without complications | CPT/HCPCS: 36415; 83036; 86803 ==

== ENCOUNTER → 2024-06-22 | Outpatient (CLI) | payer MEDICARE, OTHER ==
[2024-06-23 02:21] LABS: Albumin 4.9 g/dL (3.8-4.9); BUN/Creat Ratio 25.93 Ratio (12.00-20.00); Blood Urea Nitrogen 36.3 mg/dL (9.0-27.0); Carbon Dioxide 22.1 mmol/L (21.6-31.8); Chloride 98 mmol/L (96-109); Chol/HDL Ratio 3.35 Ratio; Glucose 101 mg/dL (70-110); LDL Cholesterol,Calculated 85.4 mg/dL (0.0-131.0); Phosphorus 3.5 mg/dL (2.4-5.1); Potassium 4.4 mmol/L (3.5-5.5); Sodium 139 mmol/L (135-145)
== END | disposition home or self-care (01) ==
LOC: LABWHC1 11:51
PROVIDERS: ATTEND Internal Medicine
DX: E11.65 Type 2 diabetes mellitus with hyperglycemia (principal)
CPT/HCPCS: 36415; 80061; 80069; 84439; 84443; 84481

== ENCOUNTER → 2024-07-20 | Outpatient (CLI) | payer MEDICARE, OTHER ==
[2024-07-20 16:35] LABS: T4, Free (Free Thyroxine) 1.33 ng/dL (0.80-1.80)
[2024-07-20 16:53] LABS: Albumin 4.4 g/dL (3.8-4.9); BUN/Creat Ratio 18.47 Ratio (12.00-20.00); Blood Urea Nitrogen 27.7 mg/dL (9.0-27.0); Carbon Dioxide 21.6 mmol/L (21.6-31.8); Chloride 105 mmol/L (96-109); Glucose 102 mg/dL (70-110); Phosphorus 4.2 mg/dL (2.4-5.1); Potassium 4.2 mmol/L (3.5-5.5); Sodium 143 mmol/L (135-145)
[2024-07-20 21:18] LABS: Microalbumin Creatinine Ratio <7 mg/g Cr (0-30)
== END | disposition home or self-care (01) ==
LOC: LABWHC1 11:46
PROVIDERS: ATTEND Internal Medicine
DX: E11.65 Type 2 diabetes mellitus with hyperglycemia (principal); E11.22 Type 2 diabetes mellitus with diabetic chronic kidney disease; E03.9 Hypothyroidism, unspecified; N18.31 Chronic kidney disease, stage 3a; M81.0 Age-related osteoporosis without current pathological fracture
CPT/HCPCS: 36415; 80069; 82043; 82570; 83036; 84439; 84443

== ENCOUNTER → 2024-08-30 | Outpatient (CLI) | payer MEDICARE, OTHER ==
--- NOTE | 2024-08-30 13:00 | US ---
EXAMINATION TYPE: US kidneys/renal and bladder DATE OF EXAM: 08/30/2024 COMPARISON: 12/03/23 CLINICAL INDICATION: Female, 69 years old with history of N18.32 CHRONIC KIDNEY DISEASE, STAGE 3B; CK D TECHNIQUE: Grayscale imaging of the bilateral kidneys and urinary bladder: FINDINGS: EXAM MEASUREMENTS: Right Kidney: 9.8 x 4.5 x 4.7 cm Left Kidney: 9.8 x 5.3 x 5.1 cm Right Kidney: No hydronephrosis or masses seen Left Kidney: 2 echogenic foci seen in the inferior pole with posterior shadowing. Largest measuring 0 .6 x 0.8 x 0.5cm Bladder: wnl Bilateral Jets seen: yes There is no evidence for hydronephrosis at this point in time. No masses are identified. The urina ry bladder is anechoic. IMPRESSION: Nonobstructing left-sided nephrolithiasis. [facility], , 08/30/2024 12:57 PM
== END | disposition home or self-care (01) ==
LOC: RADUSWWP 12:03
PROVIDERS: ATTEND Internal Medicine
DX: N18.32 Chronic kidney disease, stage 3b (principal); N20.0 Calculus of kidney
CPT/HCPCS: 76770

== ENCOUNTER → 2024-08-30 | Outpatient (CLI) | payer MEDICARE | END | disposition home or self-care (01) | LOC: LABWHC1 15:09 | PROVIDERS: ATTEND Internal Medicine | DX: Z53.9 Procedure and treatment not carried out, unspecified reason (principal) ==

== ENCOUNTER → 2024-08-30 | Outpatient (CLI) | payer MEDICARE ==
[2024-08-30 15:25] LABS: Creatinine,Urine Random 55.7 mg/dL; Protein/Creatinine Ratio,Urine 0.144
[2024-08-30 18:40] LABS: Basophils # (A) 0.07 X 10*3/uL (0.00-0.10); Basophils % (A) 0.6 %; Eosinophils # (A) 0.31 X 10*3/uL (0.04-0.35); Eosinophils % (A) 2.9 %; HCT 41.5 % (37.2-46.3); HGB 13.9 g/dL (12.0-15.0); Lymphocytes # (A) 3.04 X 10*3/uL (0.90-5.00); Lymphocytes % (A) 28.1 %; MCH 30.3 pg (27.0-32.0); MCHC 33.5 g/dL (32.0-37.0); MCV 90.4 FL (80.0-97.0); Mean Platelet Volume 10.8 FL (9.5-12.2); Monocytes # (A) 0.67 X 10*3/uL (0.20-1.00); Monocytes % (A) 6.2 %; NRBC Per 100 WBC 0 X 10*3/uL (0.00-0.01); Neutrophils # (A) 6.71 X 10*3/uL (1.80-7.70); Platelet Count 305 X 10*3/uL (140-440); RBC 4.59 X 10*6/uL (4.10-5.20); RDW 13.4 % (11.5-14.5); WBC 10.82 X 10*3/uL (4.50-10.00)
[2024-08-30 19:04] LABS: Albumin 4.7 g/dL (3.8-4.9); BUN/Creat Ratio 29.27 Ratio (12.00-20.00); Blood Urea Nitrogen 32.2 mg/dL (9.0-27.0); Calcium 9.9 mg/dL (8.7-10.3); Carbon Dioxide 24.8 mmol/L (21.6-31.8); Chloride 97 mmol/L (96-109); Glucose 83 mg/dL (70-110); Phosphorus 3.9 mg/dL (2.4-5.1); Potassium 4.5 mmol/L (3.5-5.5); Sodium 136 mmol/L (135-145); T4, Free (Free Thyroxine) 1.16 ng/dL (0.80-1.80)
[2024-08-30 20:08] LABS: Appearance,Urine Clear (Clear); Bilirubin,Urine Negative (Negative); Blood,Urine Negative (Negative); Color,Urine Yellow (Yellow); Ketones,Urine Negative (Negative); Nitrite,Urine Negative (Negative); PH, Urine 5.5; Urobilinogen,Urine 0.2 E.U./DL
[2024-08-30 21:51] LABS: Microalbumin Creatinine Ratio <21 mg/g Cr (0-30); Urine Creatinine 55.9 mg/dL (28.0-217.0)
== END | disposition home or self-care (01) ==
LOC: EDSTATUS 14:59 → LABWHC1 15:09
PROVIDERS: ATTEND Internal Medicine
DX: E11.65 Type 2 diabetes mellitus with hyperglycemia (principal); N18.31 Chronic kidney disease, stage 3a; E03.9 Hypothyroidism, unspecified; M81.0 Age-related osteoporosis without current pathological fracture
CPT/HCPCS: 36415; 80069; 81003; 82043; 82306; 82570; 83036; 83970; 84156; 84439; 84443; 84550; 85025

== ENCOUNTER → 2024-09-05 | Outpatient (CLI) | payer MEDICARE ==
--- NOTE | 2024-09-05 10:31 | US ---
EXAMINATION TYPE: US abdomen limited DATE OF EXAM: 09/05/2024 COMPARISON: NONE CLINICAL INDICATION: Female, 69 years old with history of R10.9 ABD PAIN K57.30 R11.0 K58.2 N20.0; TECHNIQUE: Grayscale and color Doppler imaging of the right upper quadrant. FINDINGS: EXAM MEASUREMENTS: Liver Length: 16.9 cm Gallbladder Wall: 0.2 cm CBD: 0.5 cm, color Doppler imaging was utilized to isolate the common bile duct for measurement. Right Kidney: 9.8x4.4x5.3 cm [facility] NOTES: Pancreas: wnl Liver: course echogenicity Gallbladder: No stones seen Evidence for sonographic Abreu's sign: No CBD: wnl Right Kidney: No hydronephrosis or masses seen IMPRESSION: 1. No evidence for acute process. 2. Coarsened echotexture liver are quite for hepatocellular disease. [facility], , 09/05/2024 10:28 AM
== END | disposition home or self-care (01) ==
LOC: RADUSWWP 09:27
PROVIDERS: ATTEND Family Medicine Geriatric Medicine
DX: K57.30 Diverticulosis of large intestine without perforation or abscess without bleeding (principal); R11.0 Nausea; K58.2 Mixed irritable bowel syndrome; N20.0 Calculus of kidney; K76.89 Other specified diseases of liver
CPT/HCPCS: 76705

== ENCOUNTER → 2024-11-01 | Outpatient (CLI) | payer MEDICARE, OTHER ==
--- NOTE | 2024-11-01 13:17 | MM ---
Reason for Exam: Screening (asymptomatic). Last mammogram was performed 2 year(s) and 2 month(s) ago. Patient History: Menarche at age 13. First Full-Term at age 37. Late child-bearing (after 30). Postmenopausal. Risk Values: Kimberlyn 5 year model risk: 2.4%. NCI Lifetime model risk: 7.6%. Prior Study Comparison: 01/03/2019 Bilateral Screening Mammogram, [facility]. 10/22/2020 Bilateral Screening Mammogram, [facility]. 08/25/2022 Bilateral MG 3D screening mammo w/cad, [facility]. Tissue Density: The breasts are almost entirely fatty. Findings: Analyzed By CAD. Right breast: There is no suspicious group of microcalcifications or new suspicious mass. Left breast: There is no suspicious group of microcalcifications or new suspicious mass. Overall Assessment: Negative, BI-RAD 1 Management: Screening Mammogram of both breasts in [address] [facility] will attempt to contact patient to return for supplemental views and ultrasound if indicated. Patient should continue monthly self-breast exams. A clinical breast exam by your physician is recommended on an annual basis. This exam should not preclude additional follow-up of suspicious palpable abnormalities. Note on Kimberlyn scores and lifetime risk: 1. A Kimberlyn score greater than 3% is considered moderate risk. If this is the case, consider specialist referral to assess eligibility for a risk reducing agent. 2. If overall lifetime risk for the development of breast cancer is 20% or higher, the patient may qualify for future screening with alternating mammogram and breast MRI. [facility], , 11/01/2024 1:14 PM. Electronically signed and approved by: Adalid Steven DO
--- NOTE | 2024-11-01 15:13 | BD ---
EXAMINATION TYPE: Axial Bone Density DATE OF EXAM: 11/01/2024 CLINICAL HISTORY: 69 years old Female. ICD-10 CODE: M81.0 AGE-RELATED OSTEOPOROSIS W/ , Additional H istory: Height: 5 ft 1 in Weight: 145 FRAX RISK QUESTIONS: Alcohol (3 or more units per day): no Family History (Parent hip fracture): yes Glucocorticoids (More than 3mos): no (Ex: prednisone, prednisolone, methylprednisolone, dexamethasone, and hydrocortisone). History of Fracture in Adulthood: yes Secondary Osteoporosis: 1. Type 1 Diabetes:type 2 2. Hyperthyroidism: no 3. Menopause before 45: no 4. Malnutrition: no 5. Chronic liver disease: no Rheumatoid Arthritis: no Current Tobacco Use: no RISK FACTORS HISTORY OF: Surgery to Spine/Hip(right/left)/Wrist (right/left): rt wrist When: 2001 MEDICATIONS: Thyroid Medications: yes Which medication: levothyroxine How Long: approx 15 years Osteoporosis Medications: none EXAM MEASUREMENTS: Bone mineral densitometry was performed using the [employer] System. Bone mineral density as measured about the Lumbar spine is: ----- L1-L4(G/cm2): 0.852 T Score Values are as follows: ----- L1: -3.1 ----- L2: -3.2 ----- L3: -2.8 ----- L4: -2.1 ----- L1-L4: -2.7 Z Score Values are as follows: ----- L1: -1.5 ----- L2: -1.6 ----- L3: -1.2 ----- L4: -0.5 ----- L1-L4: -1.1 Bone mineral density has: increased 3.1 % since study of: 2021 Bone mineral density about the R hip (g/cm2): 0.795 Bone mineral density about the L hip (g/cm2): 0.716 T Score values are as follows: -----R Neck: -1.7 -----L Neck: -2.3 -----R Total: -1.5 -----L Total: -1.6 Z Score values are as follows: -----R Neck: -0.2 -----L Neck: -0.7 -----R Total: -0.2 -----L Total: -0.2 Bone mineral density has: increased 2.4 % since study of: 2019 FRAX%s: The graph provided illustrates a 33.2 % chance for a major osteoporotic fx and a 7.4 % chance for the hips probability for fx in 10 years time. IMPRESSION: Osteoporosis (T Score less than -2.5). There is increased fracture risk and therapy is usually indicated based on age. Re-Screen 1-2 years. NOTE: T-SCORE=SD OF THE YOUNG ADULT MEAN. [facility], , 11/01/2024 3:11 PM
== END | disposition home or self-care (01) ==
LOC: RADBDWWP 10:59
PROVIDERS: ATTEND Family Medicine Geriatric Medicine
DX: Z12.31 Encounter for screening mammogram for malignant neoplasm of breast (principal); M81.0 Age-related osteoporosis without current pathological fracture; Z78.0 Asymptomatic menopausal state; E10.9 Type 1 diabetes mellitus without complications
CPT/HCPCS: 77063; 77067; 77080

== ENCOUNTER → 2025-01-22 | Outpatient (CLI) | payer MEDICARE ==
[2025-01-22 18:57] LABS: ALT 35 U/L (8-44); AST 27 U/L (13-35); Albumin 4.6 g/dL (3.8-4.9); Albumin/Globulin Ratio 1.64 Ratio (1.60-3.17); Alkaline Phosphatase 80 U/L (41-126); BUN/Creat Ratio 28.92 Ratio (12.00-20.00); Blood Urea Nitrogen 34.7 mg/dL (9.0-27.0); Calcium 10.2 mg/dL (8.7-10.3); Chloride 101 mmol/L (96-109); Chol/HDL Ratio 3.15 Ratio; Globulin 2.8 g/dL (1.6-3.3); Glucose 104 mg/dL (70-110); LDL Cholesterol,Calculated 60.2 mg/dL (0.0-131.0); Phosphorus 3.2 mg/dL (2.4-5.1); Potassium 4.2 mmol/L (3.5-5.5); Sodium 139 mmol/L (135-145); Total Bilirubin 0.2 mg/dL (0.3-1.2); Total Protein 7.4 g/dL (6.2-8.2)
== END | disposition home or self-care (01) ==
LOC: LABWHC1 15:07
PROVIDERS: ATTEND Internal Medicine Interventional Cardiology
DX: E78.2 Mixed hyperlipidemia (principal); M81.0 Age-related osteoporosis without current pathological fracture
CPT/HCPCS: 36415; 80053; 80061; 80069